=== PATIENT | male | born 1945 | race Caucasian/White ===

== ENCOUNTER 2019-03-04 10:24 | Inpatient (IN) ==
[2019-03-04] MEDS ORDERED: Isovue-370 500 ML BOTTLE IVP ONE (10:57)
[2019-03-04 11:03] LABS: Basophils # 0.1 K/mcL (0.0-0.2); Basophils % 0.8 %; Eosinophils # 0.3 K/mcL (0.0-0.6); Eosinophils % 3.9 %; Hematocrit 46.3 % (37.5-50.1); Hemoglobin 15.3 g/dL (12.9-16.9); Immature Granulocytes % 0.3 % (0-4); Lymphocytes # 1.2 K/mcL (0.6-4.6); Lymphocytes % 18.1 %; Mean Corpuscular Hemoglobin 30.4 pg (28.0-33.3); Mean Platelet Volume 10.2 fL (9.4-12.4); Monocytes # 0.6 K/mcL (0.0-1.3); Monocytes % 9.4 %; Neutrophils # 4.4 K/mcL (1.6-8.9); Platelet Count 210 K/mcL (140-400); Red Blood Count 5.03 M/mcL (4.19-5.50); Red Cell Distribution Width 16.1 % (11.5-14.5); Segmented Neutrophils % 67.5 %; White Blood Count 6.5 K/mcL (4.3-11.1)
[2019-03-04] MEDS ORDERED: *HR* HYDROcodone/Acet 5/325 mg TABLET PO ONE (11:04)
--- NOTE | 2019-03-04 11:05 | Emergency Department Note ---
Disposition Clinical Impression: Cellulitis Qualifiers: Site of cellulitis: extremity Site of cellulitis of extremity: lower extremity Laterality: unspecified laterality Qualified Code(s): L03.119 - Cellulitis of unspecified part of limb Disposition: Admitted As Inpatient Condition: Fair Referrals: Lois Mast MD [Primary Care Provider] - Forms: ED Satisfaction Letter Time of Disposition: 13:42 General Adult HPI - General Chief complaint: ED Extremity Problem,Nontraumatic Stated complaint: BLE pain,swelling Time Seen by Provider: 03/04/19 10:31 Source: patient Limitations: no limitations - History of Present Illness HPI Narrative: Mr. Chavez is a 73-year-old male presenting to the ED complaining of bilateral lower leg pain. He reports his lower leg and foot pain has been ongoing since since November recently was just edematous skin she does have occurred more recently. The skin changes with skin sloughing has occurred in the past month. He reports the pain is worse in his feet bilaterally; it is stabbing pain that radiates from his feet to his lower legs bilaterally. Pain is 10/10. Denies any difficulty with gait reports movement makes pain worse, nothing alleviates the pain. He has an outpatient appointment with wound care on 03/10/19 but reports pain worsened leading him to present to the ED. He has completed 2 regimens of oral antibiotic outpatient is on his third regimen at this time. Currently on his third regimen of oral antibiotics. Additionally has history of CHF as well as diabetes on 2 oral agents, does not monitor his home glucose. He is unsure of the antibiotics he has taken. He denies fever, chills, nausea, emesis, chest pain, shortness of breath. Pain Scale: 10 - Related Data Home Medications Medication Instructions Recorded Confirmed Aspirin [Lo-Dose Aspirin EC] 81 mg PO DAILY 11/21/18 03/04/19 Cholecalciferol (Vitamin D3) 1,000 unit PO DAILY 11/21/18 03/04/19 [Vitamin D3] Cilostazol [Pletal] 100 mg PO BID 11/21/18 03/04/19 Glimepiride [Amaryl] 4 mg PO DAILY 11/21/18 03/04/19 Lovastatin [Mevacor] 2 tab PO DAILY 11/21/18 03/04/19 Furosemide [Lasix] 20 mg PO DAILY 03/04/19 03/04/19 Lisinopril [Zestril] 5 mg PO DAILY 03/04/19 03/04/19 cephALEXin [Keflex] 500 mg PO TID 03/04/19 03/04/19 Previous Rx's Medication Instructions Recorded Dabigatran [Pradaxa] 150 mg PO BID #60 capsule 11/25/18 Metoprolol XL (24 HR) Succ [Toprol 12.5 mg PO DAILY #30 tab.er.24h 11/25/18 Xl] Allergies Allergy/AdvReac Type Severity Reaction Status Date / Time metformin Allergy Rash Verified 11/22/18 15:42 ITCHING Constitutional: Denies: fever, chills, weakness Eyes: Denies: eye pain, vision change ENT ED: Denies: ear pain, congestion, dysphagia Cardiovascular: Denies: chest pain, palpitations, dyspnea on exertion Respiratory: Denies: cough, dyspnea, wheezes Gastrointestinal: Denies: abdominal pain, nausea, vomiting Genitourinary: Denies: urgency, dysuria, frequency Musculoskeletal: Reports: other (Bilateral leg pain) Integumentary: Denies: rash, abrasion, lesions Neurological: Denies: headache, weakness Hematological/Lymphatic: Denies: easy bleeding, easy bruising Past Medical History - Past Medical History Medical history: Reports: atrial fibrillation, CHF, DVT, diabetes, hyperlipidemia, hypertension Surgical history: Reports: non-contributory Psychiatric history: Reports: no psych history - Social History Smoking Status: Former smoker Smokeless Tobacco Status: No Alcohol use: Reports: none Drug use: Reports: none Physical Exam - General Limitations: no limitations General appearance: alert, in no apparent distress - Head Head exam: atraumatic, normocephalic - Eye Eye exam: Present: normal appearance, EOMI, scleral icterus - ENT ENT exam: normal exam, normal oropharynx, mucous membranes moist - Neck Neck exam: Present: normal inspection, full ROM, trachea midline - Chest Chest inspection: Present: normal inspection, symmetric chest wall rise. Absent: tenderness - Respiratory Respiratory exam: Present: normal lung sounds bilaterally, respiratory distress. Absent: wheezes - Cardiovascular Cardiovascular exam: Present: tachycardia, irregular rhythm, other (Circulation heart rate of 109) - Abdominal Exam Abdominal exam: Present: soft, Non-Tender. Absent: distention, guarding, rigidity - Extremities Exam Extremities exam: Present: pedal edema (+2 pitting edema 2 pitting edema bilateral lower extremity), other (skin changes noted bilateral lower extremity, weeping of the skin noted). Absent: calf tenderness - Neurological Exam Neurological exam: Present: alert, oriented X3 (Person place and time) - Psychiatric Psychiatric exam: Present: normal affect, normal mood - Skin Skin exam: Present: warm, other (Weeping of the skin, sloughing of the skin noted as well) Course Vital Signs Temperature 97.6 F 03/04/19 10:25 Pulse Rate 115 03/04/19 10:25 Respiratory Rate 20 03/04/19 10:25 Blood Pressure 154/80 03/04/19 10:25 O2 Sat by Pulse Oximetry 97 03/04/19 10:25 Temperature 97.6 F 03/04/19 10:29 Pulse Rate 93 03/04/19 11:07 Respiratory Rate 03/04/19 10:29 Blood Pressure 123/74 03/04/19 11:07 O2 Sat by Pulse Oximetry 97 03/04/19 10:29 Oxygen Delivery Oxygen Delivery Room Air Medical Decision Making - MDM Narrative Medical decision making narrative: Mr. Chavez is a 73-year-old male patient ED complaining of bilateral lower feet as well as the pain. He reports the pain is been ongoing since November, skin changes occurred about one month. He has completed to oral antiemetic regimen outpatient. Currently on nystatin oral regimen. Reports stabbing pain radiates from his feet up to his bilateral legs. Eyes any fever, chills, nausea, emesis. He also denies any previous history of DVT. Blood cultures, CBC, CMP, CPK, lactic acid, CT of bilateral lower extremity pending. EKG shows atrial fibrillation heart rate is 109. He received IV fluids due to meeting SIRS criteria. Started IV antibiotics. CPK and CBC is within normal limits, lactic acid is also normal limits. CT of the bilateral lower extremities show significant cellulitis concern. Discussed the patient with the hospitalist and will be admitted under hospitalist service. - Medical Records Medical records reviewed: Yes I reviewed the patient's medical records. - Lab Data Lab results reviewed: Yes I reviewed the patient's lab results. Result diagrams: 03/04/19 10:45 03/04/19 10:45 Lab Results 03/04/19 03/04/19 03/04/19 Range/Units 10:45 10:45 10:45 WBC 6.5 (4.3-11.1) K/mcL RBC 5.03 (4.19-5.50) M/mcL Hgb 15.3 (12.9-16.9) g/dL Hct 46.3 (37.5-50.1) % MCV 92.0 (83.0-100.0) fL MCH 30.4 (28.0-33.3) pg MCHC 33.0 (31.6-35.5) g/dL RDW 16.1 H (11.5-14.5) % Plt Count 210 (140-400) K/mcL MPV 10.2 (9.4-12.4) fL Immature Gran % 0.3 (0-4) % Seg Neutrophils % 67.5 % Lymphocytes % 18.1 % Monocytes % 9.4 % Eosinophils % 3.9 % Basophils % 0.8 % Neutrophils # 4.4 (1.6-8.9) K/mcL Lymphocytes # 1.2 (0.6-4.6) K/mcL Monocytes # 0.6 (0.0-1.3) K/mcL Eosinophils # 0.3 (0.0-0.6) K/mcL Basophils # 0.1 (0.0-0.2) K/mcL PT 20.0 H (9.4-12.1) Seconds INR 1.8 APTT 77.4 H (26.0-36.0) Seconds Sodium (136-145) mEq/L Potassium (3.5-5.1) mEq/L Chloride (98-107) mEq/L Carbon Dioxide (23-29) mEq/L BUN (8-23) mg/dL Creatinine (0.70-1.30) mg/dL Est GFR ( Amer) (> 60) Est GFR (Non-Af Amer) (> 60) BUN/Creatinine Ratio (6-26) Glucose (70-105) mg/dL Calculated Osmolality (280-300) Lactic Acid (0.5-2.2) mmol/L Calcium (8.6-10.3) mg/dL Phosphorus (2.7-4.5) mg/dL Magnesium (1.6-2.6) mg/dL Total Bilirubin (0.3-1.0) mg/dL Direct Bilirubin (0.0-0.2) mg/dL Indirect Bilirubin (0.0-1.2) mg/dL AST (13-39) Units/L ALT (7-52) Units/L Alkaline Phosphatase (34-104) Units/L Creatine Kinase (30-223) Units/L Troponin I (< 0.04) ng/mL B-Natriuretic Peptide 36 (Less than 100) pg/mL Serum Total Protein (6.4-8.9) g/dL Albumin (3.5-5.7) g/dL Globulin (2.4-3.5) g/dL Albumin/Globulin Ratio (1.1-2.2) Urine Color (Yellow) Urine Clarity (Clear) Urine pH (5.0-8.0) pH Units Ur Specific [place] (1.010-1.025) Urine Protein (Neg-Trace) mg/dL Urine Glucose (UA) (Normal) mg/dL Urine Ketones (Negative) mg/dL Urine Blood (Negative) Urine Nitrite (Negative) Urine Bilirubin (Negative) Urine Urobilinogen (Normal) mg/dL Ur Leukocyte Esterase (Negative) Ur Culture Indicated? (NO) 03/04/19 03/04/19 03/04/19 Range/Units 10:45 10:45 11:38 WBC (4.3-11.1) K/mcL RBC (4.19-5.50) M/mcL Hgb (12.9-16.9) g/dL Hct (37.5-50.1) % MCV (83.0-100.0) fL MCH (28.0-33.3) pg MCHC (31.6-35.5) g/dL RDW (11.5-14.5) % Plt Count (140-400) K/mcL MPV (9.4-12.4) fL Immature Gran % (0-4) % Seg Neutrophils % % Lymphocytes % % Monocytes % % Eosinophils % % Basophils % % Neutrophils # (1.6-8.9) K/mcL Lymphocytes # (0.6-4.6) K/mcL Monocytes # (0.0-1.3) K/mcL Eosinophils # (0.0-0.6) K/mcL Basophils # (0.0-0.2) K/mcL PT (9.4-12.1) Seconds INR APTT (26.0-36.0) Seconds Sodium 132 L (136-145) mEq/L Potassium 4.1 (3.5-5.1) mEq/L Chloride 103 (98-107) mEq/L Carbon Dioxide 21 L (23-29) mEq/L BUN 24 H (8-23) mg/dL Creatinine 0.98 (0.70-1.30) mg/dL Est GFR ( Amer) > 60 (> 60) Est GFR (Non-Af Amer) > 60 (> 60) BUN/Creatinine Ratio 24 (6-26) Glucose 204 H (70-105) mg/dL Calculated Osmolality 284 (280-300) Lactic Acid 1.4 (0.5-2.2) mmol/L Calcium 9.2 (8.6-10.3) mg/dL Phosphorus 3.0 (2.7-4.5) mg/dL Magnesium 1.8 (1.6-2.6) mg/dL Total Bilirubin 0.5 (0.3-1.0) mg/dL Direct Bilirubin 0.1 (0.0-0.2) mg/dL Indirect Bilirubin 0.4 (0.0-1.2) mg/dL AST 28 (13-39) Units/L ALT 29 (7-52) Units/L Alkaline Phosphatase 60 (34-104) Units/L Creatine Kinase 44 (30-223) Units/L Troponin I < 0.03 (< 0.04) ng/mL B-Natriuretic Peptide (Less than 100) pg/mL Serum Total Protein 7.2 (6.4-8.9) g/dL Albumin 4.0 (3.5-5.7) g/dL Globulin 3.2 (2.4-3.5) g/dL Albumin/Globulin Ratio 1.3 (1.1-2.2) Urine Color Yellow (Yellow) Urine Clarity Clear (Clear) Urine pH 5.5 (5.0-8.0) pH Units Ur Specific [place] 1.007 L (1.010-1.025) Urine Protein Negative (Neg-Trace) mg/dL Urine Glucose (UA) Normal (Normal) mg/dL Urine Ketones Negative (Negative) mg/dL Urine Blood Negative (Negative) Urine Nitrite Negative (Negative) Urine Bilirubin Negative (Negative) Urine Urobilinogen Normal (Normal) mg/dL Ur Leukocyte Esterase Negative (Negative) Ur Culture Indicated? NO (NO) - Radiology Data Radiology results reviewed: Yes I reviewed the patient's radiology results.
[2019-03-04 11:10] LABS: INR 1.8
[2019-03-04 11:13] LABS: Activated Partial Thrombo Time 77.4 Seconds (26.0-36.0)
[2019-03-04 11:25] LABS: Alanine Aminotransferase 29 Units/L (7-52); Albumin/Globulin Ratio 1.3 (1.1-2.2); Alkaline Phosphatase 60 Units/L (34-104); Aspartate Amino Transferase 28 Units/L (13-39); BUN/Creatinine Ratio 24 (6-26); Bilirubin,Direct 0.1 mg/dL (0.0-0.2); Bilirubin,Indirect 0.4 mg/dL (0.0-1.2); Bilirubin,Total 0.5 mg/dL (0.3-1.0); Blood Urea Nitrogen 24 mg/dL (8-23); Calcium 9.2 mg/dL (8.6-10.3); Carbon Dioxide 21 mEq/L (23-29); Chloride 103 mEq/L (98-107); Globulin 3.2 g/dL (2.4-3.5); Glucose 204 mg/dL (70-105); Magnesium 1.8 mg/dL (1.6-2.6); Osmolality,Calculated 284 (280-300); Potassium 4.1 mEq/L (3.5-5.1); Sodium 132 mEq/L (136-145); Total Protein 7.2 g/dL (6.4-8.9); Troponin I < 0.03 ng/mL (< 0.04); eGFR For African Americans > 60 (> 60); eGFR For Non-African Americans > 60 (> 60)
[2019-03-04] MEDS: 0.9 % Sodium Chloride 1,000 ML IVC SCH ×2 (11:41→13:38)
[2019-03-04 11:47] LABS: Bilirubin,Urine Negative (Negative); Blood,Urine Negative (Negative); Clarity,Urine Clear (Clear); Color,Urine Yellow (Yellow); Glucose,Urine (UA) Normal (Normal); Ketones,Urine Negative (Negative); Leukocyte Esterase,Urine Negative (Negative); Nitrite,Urine Negative (Negative); PH,Urine 5.5 pH Units (5.0-8.0); Protein,Urine Negative (Neg-Trace); Specific Gravity,Urine 1.007 (1.010-1.025); Urobilinogen,Urine Normal (Normal)
[2019-03-04 11:56] LABS: Creatine Kinase 44 Units/L (30-223)
[2019-03-04] MEDS ORDERED: Piperacillin/Tazobactam 3.375 GM in 0.9 % Sodium Chloride Mini Bag 100 ML IVPB ONE (13:10)
[2019-03-04] MEDS ORDERED: *HR* FentaNYL (PF) 100 MCG/2 ML VIAL IVP ONE (13:16)
--- NOTE | 2019-03-04 13:18 | Emergency Department Note ---
Disposition Clinical Impression: Cellulitis Qualifiers: Site of cellulitis: extremity Site of cellulitis of extremity: lower extremity Laterality: unspecified laterality Qualified Code(s): L03.119 - Cellulitis of unspecified part of limb Disposition: Admitted As Inpatient Condition: Good Referrals: Lois Mast MD [Primary Care Provider] - Forms: ED Satisfaction Letter Time of Disposition: 13:18 General Adult HPI - General Chief complaint: ED Extremity Problem,Nontraumatic Stated complaint: BLE pain,swelling Time Seen by Provider: 03/04/19 10:31 Source: patient Limitations: no limitations - History of Present Illness Pain Scale: 10 - Related Data Home Medications Medication Instructions Recorded Confirmed Aspirin [Lo-Dose Aspirin EC] 81 mg PO DAILY 11/21/18 03/04/19 Cholecalciferol (Vitamin D3) 1,000 unit PO DAILY 11/21/18 03/04/19 [Vitamin D3] Cilostazol [Pletal] 100 mg PO BID 11/21/18 03/04/19 Glimepiride [Amaryl] 4 mg PO DAILY 11/21/18 03/04/19 Lovastatin [Mevacor] 2 tab PO DAILY 11/21/18 03/04/19 Furosemide [Lasix] 20 mg PO DAILY 03/04/19 03/04/19 Lisinopril [Zestril] 5 mg PO DAILY 03/04/19 03/04/19 cephALEXin [Keflex] 500 mg PO TID 03/04/19 03/04/19 Previous Rx's Medication Instructions Recorded Dabigatran [Pradaxa] 150 mg PO BID #60 capsule 11/25/18 Metoprolol XL (24 HR) Succ [Toprol 12.5 mg PO DAILY #30 tab.er.24h 11/25/18 Xl] Allergies Allergy/AdvReac Type Severity Reaction Status Date / Time metformin Allergy Rash Verified 11/22/18 15:42 ITCHING Past Medical History - Past Medical History Medical history: Reports: atrial fibrillation, CHF, DVT, diabetes, hyperlipidemi a, hypertension Surgical history: Reports: non-contributory Psychiatric history: Reports: no psych history - Social History Smoking Status: Former smoker Smokeless Tobacco Status: No Alcohol use: Reports: none Drug use: Reports: none Physical Exam - General Limitations: no limitations General appearance: alert, in no apparent distress Course Vital Signs Temperature 97.6 F 03/04/19 10:25 Pulse Rate 115 03/04/19 10:25 Respiratory Rate 20 03/04/19 10:25 Blood Pressure 154/80 03/04/19 10:25 O2 Sat by Pulse Oximetry 97 03/04/19 10:25 Temperature 97.6 F 03/04/19 10:29 Pulse Rate 93 03/04/19 11:07 Respiratory Rate 20 03/04/19 10:29 Blood Pressure 123/74 03/04/19 11:07 O2 Sat by Pulse Oximetry 97 03/04/19 10:29 Oxygen Delivery Oxygen Delivery Room Air Medical Decision Making - Lab Data Result diagrams: 03/04/19 10:45 03/04/19 10:45 Lab Results 03/04/19 03/04/19 03/04/19 Range/Units 10:45 10:45 10:45 WBC 6.5 (4.3-11.1) K/mcL RBC 5.03 (4.19-5.50) M/mcL Hgb 15.3 (12.9-16.9) g/dL Hct 46.3 (37.5-50.1) % MCV 92.0 (83.0-100.0) fL MCH 30.4 (28.0-33.3) pg MCHC 33.0 (31.6-35.5) g/dL RDW 16.1 H (11.5-14.5) % Plt Count 210 (140-400) K/mcL MPV 10.2 (9.4-12.4) fL Immature Gran % 0.3 (0-4) % Seg Neutrophils % 67.5 % Lymphocytes % 18.1 % Monocytes % 9.4 % Eosinophils % 3.9 % Basophils % 0.8 % Neutrophils # 4.4 (1.6-8.9) K/mcL Lymphocytes # 1.2 (0.6-4.6) K/mcL Monocytes # 0.6 (0.0-1.3) K/mcL Eosinophils # 0.3 (0.0-0.6) K/mcL Basophils # 0.1 (0.0-0.2) K/mcL PT 20.0 H (9.4-12.1) Seconds INR 1.8 APTT 77.4 H (26.0-36.0) Seconds Sodium (136-145) mEq/L Potassium (3.5-5.1) mEq/L Chloride (98-107) mEq/L Carbon Dioxide (23-29) mEq/L BUN (8-23) mg/dL Creatinine (0.70-1.30) mg/dL Est GFR ( Amer) (> 60) Est GFR (Non-Af Amer) (> 60) BUN/Creatinine Ratio (6-26) Glucose (70-105) mg/dL Calculated Osmolality (280-300) Lactic Acid (0.5-2.2) mmol/L Calcium (8.6-10.3) mg/dL Phosphorus (2.7-4.5) mg/dL Magnesium (1.6-2.6) mg/dL Total Bilirubin (0.3-1.0) mg/dL Direct Bilirubin (0.0-0.2) mg/dL Indirect Bilirubin (0.0-1.2) mg/dL AST (13-39) Units/L ALT (7-52) Units/L Alkaline Phosphatase (34-104) Units/L Creatine Kinase (30-223) Units/L Troponin I (< 0.04) ng/mL B-Natriuretic Peptide 36 (Less than 100) pg/mL Serum Total Protein (6.4-8.9) g/dL Albumin (3.5-5.7) g/dL Globulin (2.4-3.5) g/dL Albumin/Globulin Ratio (1.1-2.2) Urine Color (Yellow) Urine Clarity (Clear) Urine pH (5.0-8.0) pH Units Ur Specific [place] (1.010-1.025) Urine Protein (Neg-Trace) mg/dL Urine Glucose (UA) (Normal) mg/dL Urine Ketones (Negative) mg/dL Urine Blood (Negative) Urine Nitrite (Negative) Urine Bilirubin (Negative) Urine Urobilinogen (Normal) mg/dL Ur Leukocyte Esterase (Negative) Ur Culture Indicated? (NO) 03/04/19 03/04/19 03/04/19 Range/Units 10:45 10:45 11:38 WBC (4.3-11.1) K/mcL RBC (4.19-5.50) M/mcL Hgb (12.9-16.9) g/dL Hct (37.5-50.1) % MCV (83.0-100.0) fL MCH (28.0-33.3) pg MCHC (31.6-35.5) g/dL RDW (11.5-14.5) % Plt Count (140-400) K/mcL MPV (9.4-12.4) fL Immature Gran % (0-4) % Seg Neutrophils % % Lymphocytes % % Monocytes % % Eosinophils % % Basophils % % Neutrophils # (1.6-8.9) K/mcL Lymphocytes # (0.6-4.6) K/mcL Monocytes # (0.0-1.3) K/mcL Eosinophils # (0.0-0.6) K/mcL Basophils # (0.0-0.2) K/mcL PT (9.4-12.1) Seconds INR APTT (26.0-36.0) Seconds Sodium 132 L (136-145) mEq/L Potassium 4.1 (3.5-5.1) mEq/L Chloride 103 (98-107) mEq/L Carbon Dioxide 21 L (23-29) mEq/L BUN 24 H (8-23) mg/dL Creatinine 0.98 (0.70-1.30) mg/dL Est GFR ( Amer) > 60 (> 60) Est GFR (Non-Af Amer) > 60 (> 60) BUN/Creatinine Ratio 24 (6-26) Glucose 204 H (70-105) mg/dL Calculated Osmolality 284 (280-300) Lactic Acid 1.4 (0.5-2.2) mmol/L Calcium 9.2 (8.6-10.3) mg/dL Phosphorus 3.0 (2.7-4.5) mg/dL Magnesium 1.8 (1.6-2.6) mg/dL Total Bilirubin 0.5 (0.3-1.0) mg/dL Direct Bilirubin 0.1 (0.0-0.2) mg/dL Indirect Bilirubin 0.4 (0.0-1.2) mg/dL AST 28 (13-39) Units/L ALT 29 (7-52) Units/L Alkaline Phosphatase 60 (34-104) Units/L Creatine Kinase 44 (30-223) Units/L Troponin I < 0.03 (< 0.04) ng/mL B-Natriuretic Peptide (Less than 100) pg/mL Serum Total Protein 7.2 (6.4-8.9) g/dL Albumin 4.0 (3.5-5.7) g/dL Globulin 3.2 (2.4-3.5) g/dL Albumin/Globulin Ratio 1.3 (1.1-2.2) Urine Color Yellow (Yellow) Urine Clarity Clear (Clear) Urine pH 5.5 (5.0-8.0) pH Units Ur Specific [place] 1.007 L (1.010-1.025) Urine Protein Negative (Neg-Trace) mg/dL Urine Glucose (UA) Normal (Normal) mg/dL Urine Ketones Negative (Negative) mg/dL Urine Blood Negative (Negative) Urine Nitrite Negative (Negative) Urine Bilirubin Negative (Negative) Urine Urobilinogen Normal (Normal) mg/dL Ur Leukocyte Esterase Negative (Negative) Ur Culture Indicated? NO (NO) Attestation Statement - Attestation Attestation: I reviewed the residents documentation and agree with the residents assessment and plan of care. I have personally had face to face time with the patient. (Brief History, Brief Exam, and MDM) I personally supervised and was present for the felton/critical portions of the following procedures completed by the resident: EKG 73 year old male presents to the eD with complaints of BLE swelling and has failed outpatient therapy for cellutlisi. He also has a history of CHF with bilaeral lower extremity swelling. Patinet CT shows bilateral cellultis without osteo or nec fasc. We have started vanc and zosyn and will hydrate and admit to medicine
--- NOTE | 2019-03-04 14:37 | Internal Med History&Physical ---
Date of Encounter: 03/04/19 Time of Encounter: 14:33 Internal Medicine - H&P: HPI Chief complaint: leg infection Admitted From: Home Plans for Post Hospital Care: Home History of present illness: Mr. Chavez is a 73 year old male who has history of atrial fibrillation and DVT CHF diabetes hypertension hyperlipidemia peripheral vascular disease presenting emergency room for bilateral lower extremity redness, pain and constant oozing over one month. Patient was diagnosis of the new onset of CHF back to November 2018, discharge on Lasix, but he continues to have bilateral lower ext swelling, he developed redness and oozing a months ago, he has been treated on multiple rounds of oral antibiotics as outpatient and failure to improve. he complains of pain from bilateral lower extremity pain, 10 out of 10, constant. Denies fever or chills. Denies chest pain shortness of breath. In Emergency room, he has normal white cell counts, normal kidney function. CT lower extremity did not show any abscess no osteomyelitis. Patient is is going to be admitted for bilateral lower extremity cellulitis. Past Med Surg Social Fam HX - Past Medical History Medical history: atrial fibrillation, CHF, DVT, diabetes, hyperlipidemia, hypertension Psychiatric history: no psych history - Past Surgical History Surgical History: non-contributory - Social History Smoking Status: Former smoker Smokeless Tobacco Status: No Alcohol use: none Drug use: none Internal Medicine - H&P: Meds Aspirin [Lo-Dose Aspirin EC] 81 mg PO DAILY 11/21/18 [History] Cholecalciferol (Vitamin D3) [Vitamin D3] 1,000 unit PO DAILY 11/21/18 [History] Cilostazol [Pletal] 100 mg PO BID 11/21/18 [History] Glimepiride [Amaryl] 4 mg PO DAILY 11/21/18 [History] Lovastatin [Mevacor] 2 tab PO DAILY 11/21/18 [History] Dabigatran [Pradaxa] 150 mg PO BID #60 capsule 11/25/18 [Rx] Metoprolol XL (24 HR) Succ [Toprol Xl] 12.5 mg PO DAILY #30 tab.er.24h 11/25/18 [Rx] Furosemide [Lasix] 20 mg PO DAILY 03/04/19 [History] Lisinopril [Zestril] 5 mg PO DAILY 03/04/19 [History] cephALEXin [Keflex] 500 mg PO TID 03/04/19 [History] Allergy/AdvReac Type Severity Reaction Status Date / Time metformin Allergy Rash Verified 11/22/18 15:42 ITCHING All Systems PM: A 10-system review of systems was performed and is negative for pertinent findings except as documented above in the HPI. - Constitutional Vitals: Temp Pulse Resp BP Pulse Ox 97.6 F 79 19 100/68 96 03/04/19 10:29 03/04/19 14:05 03/04/19 13:42 03/04/19 14:05 03/04/19 14:05 General appearance: Present: A&O X 3, pleasant Exam: CONSTITUTIONAL: Patient appears as an age appropriate male well developed, in no acute distress. EYES Clear sclerae, bilateral pupils are equal, reactive to light and accommodation. Extraocular movements are intact RESPIRATORY: No accessory muscle use, bilateral basilar crackles to auscultation, no wheezing. CARDIOVASCULAR: Regular heart rate, normal S1 and S2, no murmurs GASTROINTESTINAL: bowel sounds present, soft, no tenderness. No hepatosplenomegaly. No bilateral CVA tenderness MUSCULOSKELETAL: Joints in normal range of motion, no clubbing, severe edema, no cyanosis. Bilateral peripheral pulses 2+ LYMPHATIC no lymphadenopathy in neck, groin and axilla bilaterally, no thyromegaly. NEUROLOGIC: CN II to XII are grossly intact, no focal neurological deficit. Deep tendon reflexes 2+ bilaterally. Normal light touch sensation to upper and lower extremity PSYCHIATRIC: Oriented x3, with good insight, mood is euthymic. No hallucinations or delusions. SKIN: Skin warm and dry, no rashes, no open wound. Internal Med - H&P Results - Labs CBC & Chem 7: 03/04/19 10:45 03/04/19 10:45 Labs: Short CBC 03/04/19 Range/Units 10:45 WBC 6.5 (4.3-11.1) K/mcL Hgb 15.3 (12.9-16.9) g/dL Hct 46.3 (37.5-50.1) % Plt Count 210 (140-400) K/mcL Neutrophils # 4.4 (1.6-8.9) K/mcL BMP 03/04/19 10:45 Sodium 132 L Potassium 4.1 Chloride 103 Carbon Dioxide 21 L BUN 24 H Creatinine 0.98 Glucose 204 H Calcium 9.2 Cardiac Enzymes 03/04/19 Range/Units 10:45 Troponin I < 0.03 (< 0.04) ng/mL Liver Function 03/04/19 Range/Units 10:45 Total Bilirubin 0.5 (0.3-1.0) mg/dL Direct Bilirubin 0.1 (0.0-0.2) mg/dL AST 28 (13-39) Units/L ALT 29 (7-52) Units/L Alkaline Phosphatase 60 (34-104) Units/L Albumin 4.0 (3.5-5.7) g/dL Urine 03/04/19 Range/Units 11:38 Urine Color Yellow (Yellow) Urine Clarity Clear (Clear) Urine pH 5.5 (5.0-8.0) pH Units Ur Specific [place] 1.007 L (1.010-1.025) Urine Protein Negative (Neg-Trace) mg/dL Urine Glucose (UA) Normal (Normal) mg/dL - Impressions ITS Impressions Lower Extremity CT 03/04/19 10:57 IMPRESSION: Nonspecific soft tissue swelling can represent cellulitis in the appropriate clinical setting. No abscess or foci of soft tissue air. D/ / 03/04/2019 13:08:46 Tien Heard / lasha Interpreting Provider: Tien Heard Lower Extremity CT 03/04/19 10:57 IMPRESSION: 1. Soft tissue edema with skin thickening is nonspecific may reflect cellulitis. No abscess or osteomyelitis. D/ / 03/04/2019 13:10:10 Brad Orantes MD / lasha Interpreting Provider: Brad Orantes MD - Summary of Assessment and Plan Summary of Assessment and Plan: Mr. Chavez is a 73 year old male who has history of atrial fibrillation and DVT CHF diabetes hypertension hyperlipidemia peripheral vascular disease presenting emergency room for bilateral lower extremity redness, pain and constant oozing over one month. . In Emergency room, he has normal white cell counts, normal kidney function. CT lower extremity did not show any abscess no osteomyelitis. Patient is is going to be admitted for bilateral lower extremity cellulitis. #1 bilateral lower extremity cellulitis, will check DVT in the history of present illness to rule out PAD and the DVTs continue vancomycin IV Zosyn consult wound care #2 possible acute on chronic systolic CHF EF 40-45% , with significant fluids overload. We will check x-ray, patient got 1 l saline in ER, check a BNP a.m. #3 diabetes type 2, continue home medication and the sliding scale check A1c #4 PAD, had RONY in 10/2018 conitnue ASA cilostazol, will check RONY, and consult vascular surgery #5. hx of fibrillation rate is well controlled continue Pradaxa #6. Hypertension, BP was low, hold home meds #7. GI and DVT prophalasix, PPI and Pradaxa - Time Spent With Patient Total time spent is greater than 50% in coordination of care (as documented) at patient's floor/unit and/or counseling patient: Greater than 35 minutes
[2019-03-04] MEDS ORDERED: Naloxone 0.4 MG/ML INJ IVP PRN (14:50)
[2019-03-04] MEDS ORDERED: MOM Conc 10 ML UD.LIQ PO PRN (14:50)
[2019-03-04] MEDS ORDERED: Ondansetron 4 MG/2 ML VIAL IVP PRN (14:50)
--- NOTE | 2019-03-04 16:19 | Electrocardiograph Report ---
[address] [address] Test Date: 2019-03-04 Pat Name: Radames Chavez Department: EXAM8 Room: 2A63 Gender: M Etl Manager: : [id number] Requested By: Julianna Avila Order Number: [id number] Reading MD: Stone Michael Measurements Intervals [place] Rate: 109 P: [place]: QRS: 88 QRSD: 97 T: -89 QT: 316 QTc: 426 Interpretive Statements Atrial fibrillation Diffuse T wave changes Electronically Signed On 03-04-2019 16:17:57 EDT by Stone Michael
[2019-03-04] MEDS: *HR* HYDROcodone/Acet 5/325 mg TABLET PO PRN (18:23)
[2019-03-04] MEDS: *HR* OxyCODONE Immed Rel 5 MG TABLET PO PRN (19:38)
[2019-03-04] MEDS: *HR* Dabigatran 150 MG CAPSULE PO SCH (20:46)
[2019-03-04] MEDS: Piperacillin/Tazobactam 3.375 GM in 0.9 % Sodium Chloride Mini Bag 100 ML IVPB SCH (21:19)
[2019-03-05 03:24] LABS: Basophils # 0.1 K/mcL (0.0-0.2); Basophils % 0.6 %; Eosinophils # 0.3 K/mcL (0.0-0.6); Eosinophils % 2.7 %; Hematocrit 44.1 % (37.5-50.1); Hemoglobin 14.6 g/dL (12.9-16.9); Immature Granulocytes % 0.2 % (0-4); Lymphocytes # 1.8 K/mcL (0.6-4.6); Lymphocytes % 19.1 %; Mean Corpuscular HGB Conc 33.1 g/dL (31.6-35.5); Mean Corpuscular Hemoglobin 29.7 pg (28.0-33.3); Mean Corpuscular Volume 89.8 fL (83.0-100.0); Mean Platelet Volume 10.7 fL (9.4-12.4); Monocytes # 1.2 K/mcL (0.0-1.3); Monocytes % 13.1 %; Neutrophils # 6.1 K/mcL (1.6-8.9); Platelet Count 207 K/mcL (140-400); Red Blood Count 4.91 M/mcL (4.19-5.50); Red Cell Distribution Width 16.2 % (11.5-14.5); Segmented Neutrophils % 64.3 %; White Blood Count 9.5 K/mcL (4.3-11.1)
[2019-03-05 03:37] LABS: BUN/Creatinine Ratio 17 (6-26); Blood Urea Nitrogen 19 mg/dL (8-23); Calcium 8.5 mg/dL (8.6-10.3); Carbon Dioxide 25 mEq/L (23-29); Chloride 102 mEq/L (98-107); Glucose 116 mg/dL (70-105); Magnesium 1.8 mg/dL (1.6-2.6); Osmolality,Calculated 283 (280-300); Potassium 4.4 mEq/L (3.5-5.1); Sodium 135 mEq/L (136-145); eGFR For African Americans > 60 (> 60); eGFR For Non-African Americans > 60 (> 60)
[2019-03-05] MEDS: tiZANidine 4 MG TABLET PO PRN ×3 (04:10→22:19)
[2019-03-05] MEDS: Piperacillin/Tazobactam 3.375 GM in 0.9 % Sodium Chloride Mini Bag 100 ML IVPB SCH ×3 (04:58→20:30)
[2019-03-05] MEDS: *HR* Dabigatran 150 MG CAPSULE PO SCH ×2 (07:58→20:29)
[2019-03-05] MEDS: Metoprolol XL (24 HR) Succ 25 MG TAB.ER.24H PO SCH (07:58)
[2019-03-05] MEDS: Cholecalciferol (D-3) 1,000 UNIT TABLET PO SCH (07:58)
[2019-03-05] MEDS: Aspirin Enteric Coated 81 MG Tablet PO SCH (07:58)
[2019-03-05] MEDS: *HR* Glimepiride 4 MG TABLET PO SCH (08:00)
[2019-03-05] MEDS: *HR* HYDROcodone/Acet 5/325 mg TABLET PO PRN (11:53)
[2019-03-05] MEDS ORDERED: Ipratropium/Albuterol Neb 3 ML IH PRN (14:43)
--- NOTE | 2019-03-05 14:45 | Internal Med Progress Note ---
Hospitalist Progress Note - Encounter Date of Encounter: 03/05/19 Time of Encounter: 10:00 - Subjective Interval History: patient is doing well, afebrile, leg swelling is the same, he still c/o pain 8/10 from legs, afebrile, he sees Dr cartwright for PAD, will consult Dr Cordon Patient still has some productive cough, on RA, will add Nebs - Exam Vitals: Temp Pulse Resp BP Pulse Ox 97.4 F L 99 18 108/71 97 03/05/19 11:40 03/05/19 11:40 03/05/19 11:40 03/05/19 11:40 03/05/19 11:40 Exam: CONSTITUTIONAL: Patient appears as an age appropriate male well developed, in no acute distress. EYES Clear sclerae, bilateral pupils are equal, reactive to light and accommo dation. Extraocular movements are intact RESPIRATORY: No accessory muscle use, bilateral basilar crackles to auscultation, no wheezing. CARDIOVASCULAR: Regular heart rate, normal S1 and S2, no murmurs GASTROINTESTINAL: bowel sounds present, soft, no tenderness. No hepatosplenomegaly. No bilateral CVA tenderness MUSCULOSKELETAL: Joints in normal range of motion, no clubbing, severe edema, no cyanosis. Bilateral peripheral pulses 2+ LYMPHATIC no lymphadenopathy in neck, groin and axilla bilaterally, no thyromegaly. NEUROLOGIC: CN II to XII are grossly intact, no focal neurological deficit. Deep tendon reflexes 2+ bilaterally. Normal light touch sensation to upper and lower extremity PSYCHIATRIC: Oriented x3, with good insight, mood is euthymic. No hallucinations or delusions. SKIN: Skin warm and dry, no rashes, b/l leg erythema and oozing open wound. - Summary of Assessment and Plan Summary of Assessment and Plan: Mr. Chavez is a 73 year old male who has history of atrial fibrillation and DVT CHF diabetes hypertension hyperlipidemia peripheral vascular disease presenting emergency room for bilateral lower extremity redness, pain and constant oozing over one month. . In Emergency room, he has normal white cell counts, normal kidney function. CT lower extremity did not show any abscess no osteomyelitis. Patient is is going to be admitted for bilateral lower extremity cellulitis. #1 bilateral lower extremity cellulitis, duplex is negative for DVT, RONY is done right 0.53, vascular surgery is called. continue vancomycin IV Zosyn c onsult wound care #2 possible acute on chronic systolic CHF EF 40-45% , with significant fluids overload. check x-ray showed Stable bilateral diffuse interstitial reticulonodular densities. Considerations include possible pulmonary edema versus bronchitis/bronchiolitis or possible interstitial pneumonitis, BNP is 54, he is covered by [employer]. he is on RA #3 diabetes type 2, continue home medication and the sliding scale check A1c #4 PAD, had RONY in 10/2018 conitnue ASA cilostazol, consult vascular surgery, RONY done on 03/04 #5. hx of fibrillation rate is well controlled continue Pradaxa #6. Hypertension, BP was low, hold home meds #7. GI and DVT prophalasix, PPI and Pradaxa - Time Spent with Patient Total time spent is greater than 50% in coordination of care (as documented) at patient's floor/unit and/or counseling patient: 25 - 35 minutes Plan of Care Discussed with: family Internal Medicine: Result - Labs CBC & Chem 7: 03/05/19 03:01 03/05/19 03:01 Labs: Short CBC 03/05/19 Range/Units 03:01 WBC 9.5 (4.3-11.1) K/mcL Hgb 14.6 (12.9-16.9) g/dL Hct 44.1 (37.5-50.1) % Plt Count 207 (140-400) K/mcL Neutrophils # 6.1 (1.6-8.9) K/mcL BMP 03/05/19 03:01 Sodium 135 L Potassium 4.4 Chloride 102 Carbon Dioxide 25 BUN 19 Creatinine 1.15 Glucose 116 H Calcium 8.5 L - ABG Interpretation ABG results: PT/INR, D-dimer PT 20.0 Seconds (9.4-12.1) H 03/04/19 10:45 - Impressions Impressions Lower Extremity CT 03/04/19 10:57 IMPRESSION: Nonspecific soft tissue swelling can represent cellulitis in the appropriate clinical setting. No abscess or foci of soft tissue air. D/ / 03/04/2019 13:08:46 Tien Heard / lasha Interpreting Provider: Tien Heard Chest X-Ray 03/04/19 14:55 IMPRESSION: 1. Stable borderline enlarged heart size. 2. Stable bilateral diffuse interstitial reticulonodular densities. Considerations include possible pulmonary edema versus bronchitis/bronchiolitis or possible interstitial pneumonitis. D/ / 03/04/2019 15:25:36 Mohamud Morton MD / madeline Interpreting Provider: Mohamud Morton MD Consult Discharge Plan - Plan Referrals: Lois Mast MD [Primary Care Provider] -
--- NOTE | 2019-03-05 16:22 | Vascular/Endovasc Consult Note ---
Date of Encounter: 03/06/19 Time of Encounter: 16:21 Assessment and Plan (1) Lower extremity edema Current Visit: No Status: Acute The patient presents with swelling involving the lower extremities bilaterally from the thighs all the way down to the feet. This is a secondary lymphedema most likely secondary to a decompensated heart. I agree with Aquacel dressing to the legs at the open area to control the drainage. The patient would benefit from legs elevation and 4 inch All bandage from the toes to the knees. I will also recommend to optimize his myocardial function and pursue aggressive diuresis. (2) Atrial fibrillation with RVR Current Visit: No Status: Acute (3) Diabetes mellitus Current Visit: No Status: Chronic Qualifiers: Diabetes mellitus type: type 2 Diabetes mellitus halfway insulin use: without halfway use Diabetes mellitus complication status: without complication Qualified Code(s): E11.9 - Type 2 diabetes mellitus without complications (4) PVD (peripheral vascular disease) Current Visit: No Status: Chronic The patient complains of claudication was RONY of 0.6 on the right and 0.8 on the left. There is no need to intervene on his peripheral vascular pathology at this stage. He will need to be watched very closely. (5) Cellulitis Current Visit: Yes Status: Acute Treated by the medical team. Qualifiers: Site of cellulitis: extremity Site of cellulitis of extremity: lower extremity Laterality: unspecified laterality Qualified Code(s): L03.119 - Cellulitis of unspecified part of limb - History of Present Illness Consult date: 03/05/19 History of present illness: Mr. Chavez is a 73-year-old white male admitted to the hospital for pain invol ving the lower extremities bilaterally. The pain is moderate in intensity. It is located at the calves bilaterally. It is constant. It is improved with leg elevation. It is worse with leg dependency. The pain is associated with significant swelling involving the lower extremities. The patient denies any history of DVT or SVT. He had a past history of congestive heart failure. Past Med Surg Social Fam HX - Past Medical History Medical history: atrial fibrillation, CHF, DVT, diabetes, hyperlipidemia, hypertension Psychiatric history: no psych history - Past Surgical History Surgical History: non-contributory - Social History Smoking Status: Former smoker Smokeless Tobacco Status: No Alcohol use: none Drug use: none Medications and Allergies Aspirin [Lo-Dose Aspirin EC] 81 mg PO DAILY 11/21/18 [History] Cholecalciferol (Vitamin D3) [Vitamin D3] 1,000 unit PO DAILY 11/21/18 [History] Cilostazol [Pletal] 100 mg PO BID 11/21/18 [History] Glimepiride [Amaryl] 4 mg PO DAILY 11/21/18 [History] Lovastatin [Mevacor] 2 tab PO DAILY 11/21/18 [History] Dabigatran [Pradaxa] 150 mg PO BID #60 capsule 11/25/18 [Rx] Metoprolol XL (24 HR) Succ [Toprol Xl] 12.5 mg PO DAILY #30 tab.er.24h 11/25/18 [Rx] Furosemide [Lasix] 20 mg PO DAILY 03/04/19 [History] Lisinopril [Zestril] 5 mg PO DAILY 03/04/19 [History] cephALEXin [Keflex] 500 mg PO TID 03/04/19 [History] Allergy/AdvReac Type Severity Reaction Status Date / Time metformin Allergy Rash Verified 11/22/18 15:42 ITCHING All Systems Review: The remainder of the systems were reviewed and are negative - Constitutional Constitutional: fatigue, weight gain, weight loss - Cardiovascular Cardiovascular: claudication, dyspnea on exertion, leg edema - Vascular Vascular: lower extremity swelling, lower extremity ulcers, lower extremity discoloration - Musculoskeletal Musculoskeletal: abnormal gait, muscle weakness - Integumentary Integumentary: erythema, rash, swelling Exam General: Present: No Apparent Distress HEENT: Present: Trachea midline, Pupils equal Neck: Present: JVD, Tracheal deviation Cardiac: Present: Irregular Rhythm Lungs: Present: Normal Breath Sounds, Decreased breath sounds Abdomen: Present: Soft Vascular: Present: Normal capillary refill, Pulse, absent (Faint right femoral pulse. Absent popliteal and pedal pulses. RONY 0.6 on the right and 0.8 on the left.), Edema Skin: Present: Wound/ulcer(s) (Open blisters admitted bilaterally with associated stasis dermatitis.), Other (Swelling of the lower extremities from the thighs down to the ankle.) Consult Discharge Plan - Plan Referrals: Lois Mast MD [Primary Care Provider] -
[2019-03-05] MEDS: *HR* OxyCODONE Immed Rel 5 MG TABLET PO PRN (20:29)
[2019-03-06 04:20] LABS: Basophils % 0.4 %; Eosinophils # 0.3 K/mcL (0.0-0.6); Eosinophils % 3.5 %; Hematocrit 42.5 % (37.5-50.1); Hemoglobin 13.5 g/dL (12.9-16.9); Immature Granulocytes % 0.4 % (0-4); Lymphocytes # 1.4 K/mcL (0.6-4.6); Mean Corpuscular HGB Conc 31.8 g/dL (31.6-35.5); Mean Corpuscular Hemoglobin 29.9 pg (28.0-33.3); Mean Platelet Volume 10.1 fL (9.4-12.4); Monocytes # 0.8 K/mcL (0.0-1.3); Monocytes % 9.9 %; Neutrophils # 5.8 K/mcL (1.6-8.9); Platelet Count 192 K/mcL (140-400); Red Blood Count 4.52 M/mcL (4.19-5.50); Red Cell Distribution Width 16.1 % (11.5-14.5); Segmented Neutrophils % 68.8 %; White Blood Count 8.5 K/mcL (4.3-11.1)
[2019-03-06 04:39] LABS: BUN/Creatinine Ratio 18 (6-26); Blood Urea Nitrogen 19 mg/dL (8-23); Calcium 8.6 mg/dL (8.6-10.3); Carbon Dioxide 24 mEq/L (23-29); Chloride 104 mEq/L (98-107); Glucose 129 mg/dL (70-105); Magnesium 1.8 mg/dL (1.6-2.6); Osmolality,Calculated 286 (280-300); Potassium 3.7 mEq/L (3.5-5.1); Sodium 136 mEq/L (136-145); eGFR For African Americans > 60 (> 60); eGFR For Non-African Americans > 60 (> 60)
[2019-03-06] MEDS: Piperacillin/Tazobactam 3.375 GM in 0.9 % Sodium Chloride Mini Bag 100 ML IVPB SCH (05:13)
[2019-03-06] MEDS: *HR* Dabigatran 150 MG CAPSULE PO SCH ×2 (07:15→20:07)
[2019-03-06] MEDS: Metoprolol XL (24 HR) Succ 25 MG TAB.ER.24H PO SCH (07:15)
[2019-03-06] MEDS: tiZANidine 4 MG TABLET PO PRN ×2 (07:15→16:15)
[2019-03-06] MEDS: Cholecalciferol (D-3) 1,000 UNIT TABLET PO SCH (07:15)
[2019-03-06] MEDS: Aspirin Enteric Coated 81 MG Tablet PO SCH (07:16)
[2019-03-06] MEDS: *HR* Glimepiride 4 MG TABLET PO SCH (07:18)
[2019-03-06] MEDS ORDERED: Aminoglycoside Consult 1 EACH MC ONE (08:23)
--- NOTE | 2019-03-06 11:30 | Cardiology Consult Note ---
Date of Encounter: 03/06/19 Time of Encounter: 11:27 Assessment and Plan (1) NSVT (nonsustained ventricular tachycardia) Current Visit: Yes Status: Acute 21 beat run NSVT noted on telemetry. Known CMP EF 11/23/18 40-45%. Pharm ST 12/31/18 Perfusion imaging was negative for ischemia or infarct. Will repeat limited TTE to evaluate EF. Will increase BB to Toprol XL 25mg daily. Monitor telemetry. If EF remains reduced in setting of 21 beat run NSVT, will consider LHC during stay. (2) Atrial fibrillation with RVR Current Visit: No Status: Acute Known A-Fib diagnosed earlier this year. 12 hr tele AVG HR 103, A-Fib. Will increase Toprol XL to 25mg daily. Anticoagulated on Pradaxa. (3) Cardiomyopathy Current Visit: Yes Status: Acute TTE 11/23/18 LVEF 40-45%. New diagnosis at that time thought to be tachycardia i nduced with new A-Fib RVR diagnosis. Nuclear stress test 12/2018 negative for ischemia or infarct. NSVT as above. Repeat TTE. If EF remains reduced, will consider LHC. BNP 54. CXR Stable bilateral diffuse interstitial reticulonodular densities. Considerations include possible pulmonary edema versus bronchitis/bronchiolitis or possible interstitial pneumonitis. Home Lasix 20mg daily. Will resume. Qualifiers: Cardiomyopathy type: unspecified Qualified Code(s): I42.9 - Cardiomyopathy, unspecified Discussion w patient/family: The assessment and plan as outlined above was discussed with the patient and/or family members who expressed understanding and agreement. All questions were answered. Thank you for involving us in the care of your patient. Please call with any questions. I will discuss all the above with Dr. Bacon and make changes as necessary. History of Present Illness Consult date: 03/06/19 Requesting physician: Michael Wallace Consult reason: 20 beat run NSVT Chief complaint: BLE swelling History of present illness: Mr. Chavez is a 73 year old male with PMH of atrial fibrillation, CHF, DM, HTN, HLD, PVD presenting emergency room for bilateral lower extremity redness, pain and constant oozing over one month. Reports pain of bilateral lower extremities. Denies chest pain shortness of breath. CT lower extremity did not show any abscess no osteomyelitis. He was admitted for bilateral lower extremity cellulitis. Overnight noted to have a 21 beat run NSVT and cardiology consulted for further recs. Prior CV testing: Pharm ST 12/31/18: Perfusion imaging was negative for ischemia or infarct. Pharmacologic stress ECG is negative for ischemia at level of heart rate achieved. No appreciable change from baseline ECG. Occasional PVCs or aberrant conduction during testing. Gated EF = 50%. TTE 11/23/18 LVEF 40-45%. Indeterminate diastolic function. Normal LV chamber size and wall thickness by 2D measurement. Normal right ventricular size with m ild reduction in systolic function. Bi-atrial enlargement. Mild mitral regurgitation. No pulmonary hypertension based on TR signal obtained. Past Med Surg Social Fam HX - Past Medical History Medical history: atrial fibrillation, CHF, DVT, diabetes, hyperlipidemia, hypertension Psychiatric history: no psych history - Past Surgical History Surgical History: non-contributory - Social History Smoking Status: Former smoker Smokeless Tobacco Status: No Alcohol use: none Drug use: none Medications and Allergies Aspirin [Lo-Dose Aspirin EC] 81 mg PO DAILY 11/21/18 [History] Cholecalciferol (Vitamin D3) [Vitamin D3] 1,000 unit PO DAILY 11/21/18 [History] Cilostazol [Pletal] 100 mg PO BID 11/21/18 [History] Glimepiride [Amaryl] 4 mg PO DAILY 11/21/18 [History] Lovastatin [Mevacor] 2 tab PO DAILY 11/21/18 [History] Dabigatran [Pradaxa] 150 mg PO BID #60 capsule 11/25/18 [Rx] Metoprolol XL (24 HR) Succ [Toprol Xl] 12.5 mg PO DAILY #30 tab.er.24h 11/25/18 [Rx] Furosemide [Lasix] 20 mg PO DAILY 03/04/19 [History] Lisinopril [Zestril] 5 mg PO DAILY 03/04/19 [History] cephALEXin [Keflex] 500 mg PO TID 03/04/19 [History] Allergy/AdvReac Type Severity Reaction Status Date / Time metformin Allergy Rash Verified 11/22/18 15:42 ITCHING All Systems Review: The remainder of the systems were reviewed and are negative - Cardiovascular Cardiovascular: dyspnea on exertion, leg edema Physical Examination Vital Signs, Last 4 Hours Temp Pulse Resp BP Pulse Ox 03/06/19 07:48 97.8 F 106 22 129/77 96 Vital Signs Temp Pulse Resp BP Pulse Ox 03/06/19 07:48 97.8 F 106 22 129/77 96 03/06/19 03:37 97.8 F 95 19 119/68 99 03/06/19 01:11 98.3 F 110 19 125/72 94 03/05/19 21:13 97.5 F L 98 19 117/65 96 03/05/19 17:07 97.7 F 74 16 126/72 95 03/05/19 11:40 97.4 F L 99 18 108/71 97 Intake and Output 03/05/19 03/06/19 03/06/19 23:59 07:59 15:59 Intake Total 100 / 300 100 / 100 Output Total 350 / 350 Balance 100 / 300 100 / -250 -350 / -250 Intake: IV Fluids 100 / 300 100 / 100 Zosyn 3.375 GM In 0.9 % Sodium 100 / 300 100 / 100 Chloride (Mini-Bag +) 100 ML @ 25 mls/hr IVPB Q8H [facility] Rx#: [id number] Output: Urine 350 / 350 Other: Stool Size Moderate Stool Consistency soft # Bowel Movements 1 Blood Glucose* 127 117 General: Conversant, No Apparent Distress HEENT: Atraumatic, Normocephaly, Mucus Membranes Moist Neck: Normal carotid pulses Cardiac: Other (irregularly irregular rhythm) Lungs: Other (diminished) Neuro: Alert and responsive, No focal deficits noted Abdomen: Soft, Non-Tender Skin: No rashes noted on visualized skin Musculoskeletal: No Chest Wall Tenderness Extremities: Other (BLE wrapped) Results 03/06/19 03:52 03/06/19 03:52 Lab Results 03/04/19 03/04/19 03/04/19 10:45 10:45 10:45 WBC RBC 5.03 Hgb Hct MCV 92.0 MCH 30.4 MCHC 33.0 RDW 16.1 H Plt Count MPV 10.2 Immature Gran % 0.3 Seg Neutrophils % 67.5 Lymphocytes % 18.1 Monocytes % 9.4 Eosinophils % 3.9 Basophils % 0.8 Neutrophils # 4.4 Lymphocytes # 1.2 Monocytes # 0.6 Eosinophils # 0.3 Basophils # 0.1 PT 20.0 H Sodium Potassium Chloride Carbon Dioxide BUN Creatinine Est GFR ( Amer) > 60 Est GFR (Non-Af Amer) > 60 BUN/Creatinine Ratio 24 Glucose POC Glucose Calculated Osmolality 284 Lactic Acid Calcium Phosphorus 3.0 Magnesium Direct Bilirubin 0.1 Indirect Bilirubin 0.4 Creatine Kinase 44 Serum Total Protein 7.2 Albumin 4.0 Globulin 3.2 Albumin/Globulin Ratio 1.3 Urine Color Urine Clarity Urine pH Ur Specific [place] Urine Protein Urine Glucose (UA) Urine Ketones Urine Blood Urine Nitrite Urine Bilirubin Urine Urobilinogen Ur Leukocyte Esterase Ur Culture Indicated? 03/04/19 03/04/19 03/04/19 10:45 11:38 17:05 WBC RBC Hgb Hct MCV MCH MCHC RDW Plt Count MPV Immature Gran % Seg Neutrophils % Lymphocytes % Monocytes % Eosinophils % Basophils % Neutrophils # Lymphocytes # Monocytes # Eosinophils # Basophils # PT Sodium Potassium Chloride Carbon Dioxide BUN Creatinine Est GFR ( Amer) Est GFR (Non-Af Amer) BUN/Creatinine Ratio Glucose POC Glucose 88 Calculated Osmolality Lactic Acid 1.4 Calcium Phosphorus Magnesium Direct Bilirubin Indirect Bilirubin Creatine Kinase Serum Total Protein Albumin Globulin Albumin/Globulin Ratio Urine Color Yellow Urine Clarity Clear Urine pH 5.5 Ur Specific [place] 1.007 L Urine Protein Negative Urine Glucose (UA) Normal Urine Ketones Negative Urine Blood Negative Urine Nitrite Negative Urine Bilirubin Negative Urine Urobilinogen Normal Ur Leukocyte Esterase Negative Ur Culture Indicated? NO 03/04/19 03/05/19 03/05/19 18:45 03:01 03:01 WBC RBC 4.91 Hgb Hct MCV 89.8 MCH 29.7 MCHC 33.1 RDW 16.2 H Plt Count MPV 10.7 Immature Gran % 0.2 Seg Neutrophils % 64.3 Lymphocytes % 19.1 Monocytes % 13.1 Eosinophils % 2.7 Basophils % 0.6 Neutrophils # 6.1 Lymphocytes # 1.8 Monocytes # 1.2 Eosinophils # 0.3 Basophils # 0.1 PT Sodium Potassium Chloride Carbon Dioxide BUN Creatinine Est GFR ( Amer) > 60 Est GFR (Non-Af Amer) > 60 BUN/Creatinine Ratio 17 Glucose POC Glucose 135 H Calculated Osmolality 283 Lactic Acid Calcium Phosphorus Magnesium Direct Bilirubin Indirect Bilirubin Creatine Kinase Serum Total Protein Albumin Globulin Albumin/Globulin Ratio Urine Color Urine Clarity Urine pH Ur Specific [place] Urine Protein Urine Glucose (UA) Urine Ketones Urine Blood Urine Nitrite Urine Bilirubin Urine Urobilinogen Ur Leukocyte Esterase Ur Culture Indicated? 03/05/19 03/05/19 03/05/19 07:59 11:43 17:11 WBC RBC Hgb Hct MCV MCH MCHC RDW Plt Count MPV Immature Gran % Seg Neutrophils % Lymphocytes % Monocytes % Eosinophils % Basophils % Neutrophils # Lymphocytes # Monocytes # Eosinophils # Basophils # PT Sodium Potassium Chloride Carbon Dioxide BUN Creatinine Est GFR ( Amer) Est GFR (Non-Af Amer) BUN/Creatinine Ratio Glucose POC Glucose 105 H 173 H 155 H Calculated Osmolality Lactic Acid Calcium Phosphorus Magnesium Direct Bilirubin Indirect Bilirubin Creatine Kinase Serum Total Protein Albumin Globulin Albumin/Globulin Ratio Urine Color Urine Clarity Urine pH Ur Specific [place] Urine Protein Urine Glucose (UA) Urine Ketones Urine Blood Urine Nitrite Urine Bilirubin Urine Urobilinogen Ur Leukocyte Esterase Ur Culture Indicated? 03/05/19 03/06/19 03/06/19 21:12 03:52 03:52 WBC 8.5 RBC 4.52 Hgb 13.5 Hct 42.5 MCV 94.0 MCH 29.9 MCHC 31.8 RDW 16.1 H Plt Count 192 MPV 10.1 Immature Gran % 0.4 Seg Neutrophils % 68.8 Lymphocytes % 17.0 Monocytes % 9.9 Eosinophils % 3.5 Basophils % 0.4 Neutrophils # 5.8 Lymphocytes # 1.4 Monocytes # 0.8 Eosinophils # 0.3 Basophils # 0.0 PT Sodium 136 Potassium 3.7 Chloride 104 Carbon Dioxide 24 BUN 19 Creatinine 1.07 Est GFR ( Amer) > 60 Est GFR (Non-Af Amer) > 60 BUN/Creatinine Ratio 18 Glucose 129 H POC Glucose 127 H Calculated Osmolality 286 Lactic Acid Calcium 8.6 Phosphorus Magnesium 1.8 Direct Bilirubin Indirect Bilirubin Creatine Kinase Serum Total Protein Albumin Globulin Albumin/Globulin Ratio Urine Color Urine Clarity Urine pH Ur Specific [place] Urine Protein Urine Glucose (UA) Urine Ketones Urine Blood Urine Nitrite Urine Bilirubin Urine Urobilinogen Ur Leukocyte Esterase Ur Culture Indicated? 03/06/19 07:50 WBC RBC Hgb Hct MCV MCH MCHC RDW Plt Count MPV Immature Gran % Seg Neutrophils % Lymphocytes % Monocytes % Eosinophils % Basophils % Neutrophils # Lymphocytes # Monocytes # Eosinophils # Basophils # PT Sodium Potassium Chloride Carbon Dioxide BUN Creatinine Est GFR ( Amer) Est GFR (Non-Af Amer) BUN/Creatinine Ratio Glucose POC Glucose 117 H Calculated Osmolality Lactic Acid Calcium Phosphorus Magnesium Direct Bilirubin Indirect Bilirubin Creatine Kinase Serum Total Protein Albumin Globulin Albumin/Globulin Ratio Urine Color Urine Clarity Urine pH Ur Specific [place] Urine Protein Urine Glucose (UA) Urine Ketones Urine Blood Urine Nitrite Urine Bilirubin Urine Urobilinogen Ur Leukocyte Esterase Ur Culture Indicated? Short CBC 03/06/19 Range/Units 03:52 WBC 8.5 (4.3-11.1) K/mcL Hgb 13.5 (12.9-16.9) g/dL Hct 42.5 (37.5-50.1) % Plt Count 192 (140-400) K/mcL Neutrophils # 5.8 (1.6-8.9) K/mcL BMP 03/06/19 Range/Units 03:52 Sodium 136 (136-145) mEq/L Potassium 3.7 (3.5-5.1) mEq/L Chloride 104 (98-107) mEq/L Carbon Dioxide 24 (23-29) mEq/L BUN 19 (8-23) mg/dL Creatinine 1.07 (0.70-1.30) mg/dL Glucose 129 H (70-105) mg/dL Calcium 8.6 (8.6-10.3) mg/dL Active Medications Hydrocodone Bitart/Acetaminophen ([place] 5-325 Mg) 1 tab PO Q6HR PRN PRN Reason: Moderate Pain Stop: 09/03/19 14:51 Last Admin: 03/05/19 11:53 Dose: 1 tab Documented by: Albuterol/Ipratropium (Duoneb) 3 ml IH [id number] PRN PRN Reason: Shortness Of Breath/Wheezing Stop: 09/04/19 14:44 Aspirin (Aspirin Ec) 81 mg PO DAILY [facility] Stop: 09/04/19 09:01 Last Admin: 03/06/19 07:16 Dose: 81 mg Documented by: Atorvastatin Calcium (Lipitor) 10 mg PO DAILY [facility] Stop: 09/04/19 09:01 Last Admin: 03/06/19 07:16 Dose: 10 mg Documented by: Cilostazol (Pletal) 100 mg PO BID [facility] Stop: 09/03/19 21:01 Last Admin: 03/06/19 07:15 Dose: 100 mg Documented by: Dabigatran (Pradaxa) 150 mg PO BID [facility] Stop: 09/03/19 21:01 Last Admin: 03/06/19 07:15 Dose: 150 mg Documented by: Glimepiride (Amaryl) 4 mg PO DAILY@0800 [facility] Stop: 09/04/19 08:01 Last Admin: 03/06/19 07:18 Dose: 4 mg Documented by: Piperacillin Sod/Tazobactam (Sod 3.375 gm/ Sodium Chloride) 100 mls @ 25 mls/hr IVPB Q8H [facility] Stop: 09/03/19 20:01 Last Admin: 03/06/19 05:13 Dose: 25 mls/hr Documented by: Vancomycin HCl 1,500 mg/ (Sodium Chloride) 250 mls @ 166.67 mls/hr IVPB Q24H [facility] Stop: 09/04/19 23:01 Last Admin: 03/06/19 00:29 Dose: 166.7 mls/hr Documented by: Magnesium Hydroxide (Milk Of Magnesia Conc) 10 ml PO DAILY PRN PRN Reason: Constipation Stop: 09/03/19 14:51 Metoprolol Succinate (Toprol Xl) 12.5 mg PO DAILY [facility] Stop: 09/04/19 09:01 Last Admin: 03/06/19 07:15 Dose: 12.5 mg Documented by: Naloxone HCl (Narcan) 0.4 mg IVP Q2MPRN PRN PRN Reason: SEE COMMENTS Stop: 09/03/19 14:51 Omeprazole (Prilosec) 40 mg PO DAILY@0730 [facility]; Protocol Stop: 09/05/19 07:31 Last Admin: 03/06/19 07:15 Dose: 40 mg Documented by: Ondansetron HCl (Zofran) 4 mg IVP Q8HR PRN PRN Reason: Nausea And Vomiting Stop: 09/03/19 14:51 Oxycodone HCl (Roxicodone) 10 mg PO Q6HR PRN PRN Reason: Severe Pain Stop: 09/03/19 14:51 Last Admin: 03/05/19 20:29 Dose: 10 mg Documented by: Tizanidine HCl (Zanaflex) 2 mg PO TID PRN PRN Reason: Muscle Spasm Stop: 09/04/19 02:44 Last Admin: 03/06/19 07:15 Dose: 2 mg Documented by: Vitamin D (Vitamin D) 1,000 unit PO DAILY [facility] Stop: 09/04/19 09:01 Last Admin: 03/06/19 07:15 Dose: 1,000 unit Documented by: - Imaging and Cardiology Echo: report reviewed - EKG Interpretation EKG results cardiology: personally reviewed (A-Fib rate 109), other (12 hr tele AVG HR 103, A-Fib, 21 beat run NSVT) Consult Discharge Plan - Plan Referrals: Lois Mast MD [Primary Care Provider] -
[2019-03-06] MEDS ORDERED: Metoprolol XL (24 HR) Succ 25 MG TAB.ER.24H PO ONE (11:43)
--- NOTE | 2019-03-06 11:47 | Internal Med Progress Note ---
Hospitalist Progress Note - Encounter Date of Encounter: 03/06/19 Time of Encounter: 11:44 - Subjective Interval History: The patient was seen and examined on the side The patient feels better developed 20 beats non-sustained ventricular tachycardia Bankruptcy Paralegal was consulted Electrocardiogram is pending Wound culture growing serratia species sensitive to fluoroquinolone Switch to IV levofloxacin DC IV Zosyn and vancomycin - Exam Vitals: Temp Pulse Resp BP Pulse Ox 97.8 F 106 22 129/77 96 03/06/19 07:48 03/06/19 07:48 03/06/19 07:48 03/06/19 07:48 03/06/19 07:48 Exam: Physical examination: Gen.: Patient is alert and oriented, not in respiratory distress of pain HEENT: perrla , EOMI, no thyroid gland enlargement, no neck mass, supple neck Heart: S1 and S2 sukumar, normal sinus rhythm, no cardiac murmur no gallop rhythm Chest: Air entry equal bilaterally, clear chest, no wheezing, crackles or crepitation Abdomen: Soft nontender nondistended positive bowel sounds, no organomegaly Extremities: Dressing for both legs peripheral pulses palpable, no cyanosis tenderness Neuro: Able to move all 4 limbs, no focal neurological deficit. DVT Prophylaxis: Pradaxa - Summary of Assessment and Plan Summary of Assessment and Plan: Mr. Chavez is a 73 year old male who has history of atrial fibrillation and DVT CHF diabetes hypertension hyperlipidemia peripheral vascular disease presenting emergency room for bilateral lower extremity redness, pain and constant oozing over one month. . In Emergency room, he has normal white cell counts, normal kidney function. CT lower extremity did not show any abscess no osteomyelitis. Patient is is going to be admitted for bilateral lower extremity cellulitis. #1 bilateral lower extremity cellulites 2/2 tpo chronic venous stasis and bi lateral chronic extremity edema duplex is negative for DVT, RONY is done right 0.53, vascular surgery is called. CT leg show no evidence of osteomyelitis Wound culture is growing katlyn species sensitive to levofloxacin switch to iv levofloxacin Continue on All wrap with leg elevation Continue on Lasix 20 mg daily 2- nonsustained ventricular tachycardia: 21 beats run Noted on Telemetry Bankruptcy Paralegal consulted Has history of cardiomyopathy with ejection fraction 40-45% on 11/23 Repeat limited TTE to evaluate ejection fraction Bankruptcy Paralegal did increase beta leigha to metoprolol XL 25 mg daily Nuclear stress test 12/2018 negative for ischemia or infarct. if EF remains reduced in setting of 21 beat run NSVT, cardiology will consider LHC during stay. #2 possible acute on chronic systolic CHF EF 40-45% , with significant fluids overload. check x-ray showed Stable bilateral diffuse interstitial reticulonodular densities. Considerations include possible pulmonary edema versus bronchitis/bronchiolitis or possible interstitial pneumonitis, BNP is 54, he is covered by AT[employer]. he is on by mouth Lasix #3 diabetes type 2, continue home medication and the sliding scale check A1c #4 PAD, had RONY in 10/2018 conitnue ASA cilostazol, consulted vascular surgery, RONY done on 03/04 #5. hx of fibrillation, continue Pradaxa, increase dose of BB #7. GI and DVT prophalasix, PPI and Pradaxa - Time Spent with Patient Total time spent is greater than 50% in coordination of care (as documented) at patient's floor/unit and/or counseling patient: Plan of Care Discussed with: patient Internal Medicine: Result - Labs CBC & Chem 7: 03/06/19 03:52 03/06/19 03:52 Labs: Short CBC 03/06/19 Range/Units 03:52 WBC 8.5 (4.3-11.1) K/mcL Hgb 13.5 (12.9-16.9) g/dL Hct 42.5 (37.5-50.1) % Plt Count 192 (140-400) K/mcL Neutrophils # 5.8 (1.6-8.9) K/mcL BMP 03/06/19 03:52 Sodium 136 Potassium 3.7 Chloride 104 Carbon Dioxide 24 BUN 19 Creatinine 1.07 Glucose 129 H Calcium 8.6 - ABG Interpretation ABG results: PT/INR, D-dimer PT 20.0 Seconds (9.4-12.1) H 03/04/19 10:45 Consult Discharge Plan - Plan Referrals: Lois Mast MD [Primary Care Provider] -
[2019-03-06] MEDS: Furosemide 20 MG TABLET PO SCH (11:53)
[2019-03-06] MEDS: Levofloxacin 750 MG/150 ML 750 MG/150 ML BAG IVPB SCH (11:53)
--- NOTE | 2019-03-06 17:09 | Vascular/[facility] Progress Note ---
Date of Encounter: 03/06/19 Time of Encounter: 17:05 - Assessment and plan (1) Lower extremity edema Current Visit: No Status: Acute The patient presents with swelling involving the lower extremities bilaterally from the thighs all the way down to the feet. This is due to secondary lymphedema. The patient venous duplex scan is negative as expected. He is treated for his cellulitis by the medical team. He is followed by cardiology to optimize his cardiac function. (2) Atrial fibrillation with RVR Current Visit: No Status: Acute (3) Diabetes mellitus Current Visit: No Status: Chronic Qualifiers: Diabetes mellitus type: type 2 Diabetes mellitus penitentiary insulin use: without penitentiary use Diabetes mellitus complication status: without complication Qualified Code(s): E11.9 - Type 2 diabetes mellitus without complications (4) PVD (peripheral vascular disease) Current Visit: No Status: Chronic The patient complains of claudication was RONY of 0.6 on the right and 0.8 on the left. There is no need to intervene on his peripheral vascular pathology at this stage. He will need to be watched very closely. (5) Cellulitis Current Visit: Yes Status: Acute Treated by the medical team. Qualifiers: Site of cellulitis: extremity Site of cellulitis of extremity: lower extremity Laterality: unspecified laterality Qualified Code(s): L03.119 - Cellulitis of unspecified part of limb - Subjective Interval history: Seen in follow-up. Swelling improved was All bandage. Antibiotic adjusted by hospitalist. CT scan of the leg without evidence of osteomyelitis. Venous duplex scan negative for DVT. Stable peripheral vascular disease Vital Signs, Last 4 Hours Temp Pulse Resp BP Pulse Ox 03/06/19 15:24 97.6 F 99 18 113/71 96 - Physical Examination General: Present: No Apparent Distress Neck: Present: JVD Cardiac: Present: Irregular Rhythm Lungs: Present: Normal Breath Sounds Neuro: Present: Alert and responsive, Other (Loss of protective sensation both legs.) Vascular: Present: Pulse, diminished Abdomen: Present: Soft Skin: Present: Other (Cellulitis stable. Blisters are healing.) Musculoskeletal: Present: No Chest Wall Tenderness Results 03/06/19 03:52 03/06/19 03:52 Lab Results, Last 24 hours 03/06/19 03/06/19 03:52 03:52 WBC 8.5 Hgb 13.5 Hct 42.5 Plt Count 192 Sodium 136 Potassium 3.7 Chloride 104 Carbon Dioxide 24 BUN 19 Creatinine 1.07 Glucose 129 H Calcium 8.6 Magnesium 1.8 Consult Discharge Plan - Plan Referrals: Lois Mast MD [Primary Care Provider] -
[2019-03-06] MEDS: *HR* OxyCODONE Immed Rel 5 MG TABLET PO PRN (20:07)
[2019-03-06] MEDS: Doxycycline 100 MG CAPSULE PO SCH (20:07)
[2019-03-07 07:38] LABS: Hematocrit 43.9 % (37.5-50.1); Mean Corpuscular HGB Conc 31.9 g/dL (31.6-35.5); Mean Corpuscular Hemoglobin 29.5 pg (28.0-33.3); Mean Corpuscular Volume 92.6 fL (83.0-100.0); Mean Platelet Volume 10.4 fL (9.4-12.4); Platelet Count 183 K/mcL (140-400); Red Blood Count 4.74 M/mcL (4.19-5.50); White Blood Count 7.7 K/mcL (4.3-11.1)
[2019-03-07] MEDS: tiZANidine 4 MG TABLET PO PRN ×2 (07:38→15:18)
[2019-03-07] MEDS: Metoprolol XL (24 HR) Succ 25 MG TAB.ER.24H PO SCH (07:38)
[2019-03-07] MEDS: Doxycycline 100 MG CAPSULE PO SCH ×2 (07:38→20:19)
[2019-03-07] MEDS: Cholecalciferol (D-3) 1,000 UNIT TABLET PO SCH (07:38)
[2019-03-07] MEDS: Aspirin Enteric Coated 81 MG Tablet PO SCH (07:39)
[2019-03-07] MEDS: *HR* Glimepiride 4 MG TABLET PO SCH (07:39)
[2019-03-07] MEDS: Levofloxacin 750 MG/150 ML 750 MG/150 ML BAG IVPB SCH (07:39)
[2019-03-07] MEDS: Furosemide 20 MG TABLET PO SCH (07:39)
[2019-03-07 07:47] LABS: Alanine Aminotransferase 18 Units/L (7-52); Albumin 3.6 g/dL (3.5-5.7); Albumin/Globulin Ratio 1.2 (1.1-2.2); Alkaline Phosphatase 53 Units/L (34-104); Aspartate Amino Transferase 20 Units/L (13-39); BUN/Creatinine Ratio 17 (6-26); Bilirubin,Total 0.8 mg/dL (0.3-1.0); Blood Urea Nitrogen 16 mg/dL (8-23); Carbon Dioxide 23 mEq/L (23-29); Chloride 105 mEq/L (98-107); Glucose 117 mg/dL (70-105); Magnesium 1.8 mg/dL (1.6-2.6); Osmolality,Calculated 284 (280-300); Potassium 3.8 mEq/L (3.5-5.1); Sodium 136 mEq/L (136-145); Total Protein 6.6 g/dL (6.4-8.9); eGFR For African Americans > 60 (> 60); eGFR For Non-African Americans > 60 (> 60)
[2019-03-07] MEDS: *HR* Dabigatran 150 MG CAPSULE PO SCH ×2 (09:00→20:19)
--- NOTE | 2019-03-07 09:04 | Event Note ---
Date of Encounter: 03/07/19 Time of Encounter: 08:58 - Cardiology Event Note Telemetry reviewed. 12 hr AVG HR 92, A-Fib. 3 and 4 beat run of wide complex tachycardia that appears irregular, suspect A-Fib with Aberrancy. No NSVT noted. Continue BB. Limited TTE ordered, not been completed to re-evaluate EF. Previous 40-45%. If EF remains reduced, will recommend LHC given 21 beat run of NSVT 03/06 AM. NPO after midnight. Will review TTE in AM and determine plan.
--- NOTE | 2019-03-07 10:46 | Internal Med Progress Note ---
Hospitalist Progress Note - Encounter Date of Encounter: 03/07/19 Time of Encounter: 10:41 - Subjective Interval History: The patient was seen and examined at the bedside Patient denies chest pain or shortness of breath Telemetry showed E to run of wide-complex tachycardia that appeared irregular suspect a fib with aberrancy Patient has no fever and culture is growing gram-negative rods and gram-positive cocci , ID and sensitivity still pending - Exam Vitals: Temp Pulse Resp BP Pulse Ox 98.0 F 94 16 125/73 97 03/07/19 07:42 03/07/19 07:42 03/07/19 07:42 03/07/19 07:42 03/07/19 07:42 Exam: Physical examination: Gen.: Patient is alert and oriented, not in respiratory distress of pain HEENT: perrla , EOMI, no thyroid gland enlargement, no neck mass, supple neck Heart: S1 and S2 sukumar, normal sinus rhythm, no cardiac murmur no gallop rhythm Chest: Air entry equal bilaterally, clear chest, no wheezing, crackles or crepitation Abdomen: Soft nontender nondistended positive bowel sounds, no organomegaly Extremities: Dressing for both legs peripheral pulses palpable, no cyanosis tenderness Neuro: Able to move all 4 limbs, no focal neurological deficit. DVT Prophylaxis: Pradaxa - Summary of Assessment and Plan Summary of Assessment and Plan: Mr. Chavez is a 73 year old male who has history of atrial fibrillation and DVT CHF diabetes hypertension hyperlipidemia peripheral vascular disease presenting emergency room for bilateral lower extremity redness, pain and constant oozing over one month. . In Emergency room, he has normal white cell counts, normal kidney function. CT lower extremity did not show any abscess no osteomyelitis. Patient is is going to be admitted for bilateral lower extremity cellulitis. #1 bilateral lower extremity cellulites 2/2 to chronic venous stasis and bilateral chronic extremity edema duplex is negative for DVT, RONY is done right 0.53, vascular surgery is called. CT leg show no evidence of osteomyelitis Wound culture is growing katlyn species sensitive to levofloxacin, and also growing gram-negative rods and gram-positive cocci Continue on iv levofloxacin and Oral doxycycline 100 mg bid Continue on All wrap with leg elevation Continue on Lasix 20 mg daily 2- nonsustained ventricular tachycardia versus A. fib with aberrancy: 21 beats run Noted on Telemetry yesterday 12 hr AVG HR 92, A-Fib. 3 and 4 beat run of wide complex tachycardia that appears irregular Lotteries Agent consulted Has history of cardiomyopathy with ejection fraction 40-45% on 11/23 limited TTE to evaluate ejection fraction Lotteries Agent did increase beta leigha to metoprolol XL 25 mg daily Nuclear stress test 12/2018 negative for ischemia or infarct. if EF remains reduced in setting of 21 beat run NSVT, cardiology will consider LHC during stay. #2 possible acute on chronic systolic CHF EF 40-45% , with significant fluids overload. check x-ray showed Stable bilateral diffuse interstitial reticulonodular densities. Considerations include possible pulmonary edema versus bronchitis/bronchiolitis or possible interstitial pneumonitis, BNP is 54, he is covered by ATB. he is on by mouth Lasix #3 diabetes type 2, continue home medication and the sliding scale check A1c #4 PAD, had RONY in 10/2018 conitnue ASA cilostazol, consulted vascular surgery, RONY done on 03/04 #5. hx of fibrillation, continue Pradaxa, increase dose of BB #7. GI and DVT prophalasix, PPI and Pradaxa - Time Spent with Patient Total time spent is greater than 50% in coordination of care (as documented) at patient's floor/unit and/or counseling patient: Plan of Care Discussed with: patient Internal Medicine: Result - Labs CBC & Chem 7: 03/07/19 07:12 03/07/19 07:12 Labs: Short CBC 03/07/19 Range/Units 07:12 WBC 7.7 (4.3-11.1) K/mcL Hgb 14.0 (12.9-16.9) g/dL Hct 43.9 (37.5-50.1) % Plt Count 183 (140-400) K/mcL BMP 03/07/19 07:12 Sodium 136 Potassium 3.8 Chloride 105 Carbon Dioxide 23 BUN 16 Creatinine 0.94 Glucose 117 H Calcium 9.0 Liver Function 03/07/19 Range/Units 07:12 Total Bilirubin 0.8 (0.3-1.0) mg/dL AST 20 (13-39) Units/L ALT 18 (7-52) Units/L Alkaline Phosphatase 53 (34-104) Units/L Albumin 3.6 (3.5-5.7) g/dL - ABG Interpretation ABG results: PT/INR, D-dimer PT 20.0 Seconds (9.4-12.1) H 03/04/19 10:45 Consult Discharge Plan - Plan Referrals: Lois Mast MD [Primary Care Provider] -
--- NOTE | 2019-03-07 16:18 | Vascular/[facility] Progress Note ---
Date of Encounter: 03/07/19 Time of Encounter: 16:16 - Assessment and plan (1) Lower extremity edema Current Visit: No Status: Acute The patient presents with swelling involving the lower extremities bilaterally from the thighs all the way down to the feet. This is due to secondary lymphedema. . There is no intervention to pursue with any revascularization of his lower extremities at this stage. He will need All bandages to the lower extremities b ilaterally. He will need to wear 20-30 mm open post compression stockings after he is discharged. 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 There is no need to intervene on his peripheral vascular pathology at this stage. He will need to be watched very closely. (5) Cellulitis Current Visit: Yes Status: Acute Treated by the medical team. Qualifiers: Site of cellulitis: extremity Site of cellulitis of extremity: lower extremity Laterality: unspecified laterality Qualified Code(s): L03.119 - Cellulitis of unspecified part of limb - Subjective Interval history: Seen in follow-up. Swelling improved was All bandage. Antibiotic adjusted by hospitalist. CT scan of the leg without evidence of osteomyelitis. Venous duplex scan negative for DVT. Stable peripheral vascular disease - Physical Examination General: Present: No Apparent Distress HEENT: Present: Pupils equal Cardiac: Present: Reg Rate and Rhythm, Normal S1 and S2, No Murmur Lungs: Present: Normal Breath Sounds, No Wheeze, Rales, Rhonchi Vascular: Present: Pulse, absent, Edema Abdomen: Present: Soft, Non-tender Musculoskeletal: Present: No Chest Wall Tenderness Results 03/07/19 07:12 03/07/19 07:12 Lab Results, Last 24 hours 03/07/19 03/07/19 07:12 07:12 WBC 7.7 Hgb 14.0 Hct 43.9 Plt Count 183 Sodium 136 Potassium 3.8 Chloride 105 Carbon Dioxide 23 BUN 16 Creatinine 0.94 Glucose 117 H Calcium 9.0 Magnesium 1.8 Total Bilirubin 0.8 AST 20 ALT 18 Alkaline Phosphatase 53 Consult Discharge Plan - Plan Referrals: Lois Mast MD [Primary Care Provider] -
[2019-03-07] MEDS: *HR* OxyCODONE Immed Rel 5 MG TABLET PO PRN (20:18)
[2019-03-08 01:44] LABS: Hematocrit 42.5 % (37.5-50.1); Hemoglobin 13.5 g/dL (12.9-16.9); Mean Corpuscular HGB Conc 31.8 g/dL (31.6-35.5); Mean Corpuscular Hemoglobin 29.3 pg (28.0-33.3); Mean Corpuscular Volume 92.4 fL (83.0-100.0); Mean Platelet Volume 10.4 fL (9.4-12.4); Platelet Count 192 K/mcL (140-400); White Blood Count 7.7 K/mcL (4.3-11.1)
[2019-03-08 02:02] LABS: Alanine Aminotransferase 25 Units/L (7-52); Albumin 3.4 g/dL (3.5-5.7); Albumin/Globulin Ratio 1.1 (1.1-2.2); Alkaline Phosphatase 54 Units/L (34-104); Aspartate Amino Transferase 25 Units/L (13-39); BUN/Creatinine Ratio 17 (6-26); Bilirubin,Total 0.6 mg/dL (0.3-1.0); Blood Urea Nitrogen 17 mg/dL (8-23); Carbon Dioxide 25 mEq/L (23-29); Chloride 104 mEq/L (98-107); Glucose 105 mg/dL (70-105); Magnesium 1.8 mg/dL (1.6-2.6); Osmolality,Calculated 282 (280-300); Phosphorous 2.9 mg/dL (2.7-4.5); Potassium 3.7 mEq/L (3.5-5.1); Sodium 135 mEq/L (136-145); Total Protein 6.4 g/dL (6.4-8.9); eGFR For African Americans > 60 (> 60); eGFR For Non-African Americans > 60 (> 60)
[2019-03-08] MEDS: Cholecalciferol (D-3) 1,000 UNIT TABLET PO SCH (09:36)
[2019-03-08] MEDS: Metoprolol XL (24 HR) Succ 25 MG TAB.ER.24H PO SCH (09:36)
[2019-03-08] MEDS: Furosemide 20 MG TABLET PO SCH (09:36)
[2019-03-08] MEDS: Aspirin Enteric Coated 81 MG Tablet PO SCH (09:36)
[2019-03-08] MEDS: Doxycycline 100 MG CAPSULE PO SCH (09:36)
[2019-03-08] MEDS: *HR* Glimepiride 4 MG TABLET PO SCH (09:37)
--- NOTE | 2019-03-08 10:21 | Cardiology Progress Note ---
Date of Encounter: 03/08/19 Time of Encounter: 10:18 Assessment and Plan (1) NSVT (nonsustained ventricular tachycardia) Current Visit: Yes Status: Acute 21 beat run NSVT noted on telemetry 03/06. Known CMP EF 11/23/18 40-45%. Pharm ST 12/31/18 Perfusion imaging was negative for ischemia or infarct. Increased BB to Toprol XL 25mg daily. No recurrence. Limited TTE EF remains mildly reduced, 45%. Given EF remains mildly reduced and in setting of 21 beat run NSVT, recommend C. R/B/A discussed. Pt anticoagulated on Pradaxa, last dose 03/07PM. Pradaxa needs held 24 hours prior to [facility]. Plan on [facility] tomorrow, 03/09. (2) Atrial fibrillation with RVR Current Visit: No Status: Acute Known A-Fib diagnosed earlier this year. 12 hr tele AVG HR 90, A-Fib. Rate controlled on increased BB dose. Anticoagulated on Pradaxa. On hold currently for [facility]. (3) Cardiomyopathy Current Visit: Yes Status: Acute TTE 11/23/18 LVEF 40-45%. New diagnosis at that time thought to be tachycardia induced with new A-Fib RVR diagnosis. Nuclear stress test 12/2018 negative for ischemia or infarct. NSVT as above. Repeat TTE EF 45%. Plan for [facility]. BNP 54. CXR Stable bilateral diffuse interstitial reticulonodular densities. Considerations include possible pulmonary edema versus bronchitis/bronchiolitis or possible interstitial pneumonitis. Continue home Lasix PO 20mg daily. Qualifiers: Cardiomyopathy type: unspecified Qualified Code(s): I42.9 - Cardiomyopathy, unspecified Discussion w patient/family: The assessment and plan as outlined above was discussed with the patient and/or family members who expressed understanding and agreement. All questions were answered. Thank you for involving us in the care of your patient. Please call with any questions. I will discuss all the above with Dr. Biswas and make changes as necessary. Subjective Principal diagnosis: NSVT Interval history: No acute complaints this AM. Objective Vital Signs, Last 4 Hours Temp Pulse Resp BP Pulse Ox 03/08/19 08:02 98.3 F 86 18 125/75 96 Vital Signs Temp Pulse Resp BP Pulse Ox 03/08/19 08:02 98.3 F 86 18 125/75 96 03/08/19 03:37 98.1 F 94 20 130/74 96 03/07/19 22:37 98 F 83 20 114/71 96 03/07/19 19:40 98.4 F 94 20 116/73 95 03/07/19 16:56 97.9 F 100 16 125/77 97 03/07/19 11:40 97.6 F 96 18 125/75 99 Intake and Output 03/07/19 03/08/19 03/08/19 23:59 07:59 15:59 Intake Total 150 / 150 Output Total 300 / 300 Balance -150 / -150 Intake: IV Fluids 150 / 150 Levaquin Premix 750mg/150 mL 150 / 150 750 mg In 150 ml @ 100 mls/hr IVPB DAILY [facility] Rx#:[id number] Oral 0 / 0 Output: Urine 300 / 300 Other: Meal NPO Percent of Meal Consumed 0% # Voids 1 Blood Glucose* 137 107 General: Conversant, No Apparent Distress HEENT: Atraumatic, Normocephaly, Mucus Membranes Moist Neck: No JVD, Normal carotid pulses Cardiac: Other (irregularly irregular) Lungs: Normal Breath Sounds, No Wheeze, Rales, Rhonchi Neuro: Alert and responsive, No focal deficits noted Abdomen: Soft, Non-Tender Skin: No rashes noted on visualized skin Musculoskeletal: No Chest Wall Tenderness Extremities: Other (BLE wrapped) Results 03/08/19 00:53 03/08/19 00:53 Lab Results 03/08/19 03/08/19 00:53 00:53 WBC 7.7 Hgb 13.5 Hct 42.5 Plt Count 192 Sodium 135 L Potassium 3.7 Chloride 104 Carbon Dioxide 25 BUN 17 Creatinine 0.99 Glucose 105 Calcium 9.0 Magnesium 1.8 Total Bilirubin 0.6 AST 25 ALT 25 Alkaline Phosphatase 54 Short CBC 03/08/19 Range/Units 00:53 WBC 7.7 (4.3-11.1) K/mcL Hgb 13.5 (12.9-16.9) g/dL Hct 42.5 (37.5-50.1) % Plt Count 192 (140-400) K/mcL BMP 03/08/19 Range/Units 00:53 Sodium 135 L (136-145) mEq/L Potassium 3.7 (3.5-5.1) mEq/L Chloride 104 (98-107) mEq/L Carbon Dioxide 25 (23-29) mEq/L BUN 17 (8-23) mg/dL Creatinine 0.99 (0.70-1.30) mg/dL Glucose 105 (70-105) mg/dL Calcium 9.0 (8.6-10.3) mg/dL Liver Function 03/08/19 Range/Units 00:53 Total Bilirubin 0.6 (0.3-1.0) mg/dL AST 25 (13-39) Units/L ALT 25 (7-52) Units/L Alkaline Phosphatase 54 (34-104) Units/L Albumin 3.4 L (3.5-5.7) g/dL Impressions Echocardiogram Limited Views 03/07/19 11:43 Impressions: Grossly, LVEF appears mildly reduced, 45%. Not all LV segments were well visualized due to poor image quality. Also, LV function appears to vary based on cycle length of AF. Future studies should be completed with contrast enhancement. Findings: Study Quality * Technically sub-optimal due to poor echocardiographic windows. ECG Findings * Atrial fibrillation, bundle branch block. Left Ventricle * Not all LV segments were well visualized due to poor image quality. * Grossly, LVEF appears mildly reduced, 45%. * Also, LV function appears to vary based on cycle length of AF. * Atypical septal motion consistent with bundle branch block. Active Medications Hydrocodone Bitart/Acetaminophen ([place] 5-325 Mg) 1 tab PO Q6HR PRN PRN Reason: Moderate Pain Stop: 09/03/19 14:51 Last Admin: 03/05/19 11:53 Dose: 1 tab Documented by: Albuterol/Ipratropium (Duoneb) 3 ml IH [id number] PRN PRN Reason: Shortness Of Breath/Wheezing Stop: 09/04/19 14:44 Aspirin (Aspirin Ec) 81 mg PO DAILY JLUIS Stop: 09/04/19 09:01 Last Admin: 03/08/19 09:36 Dose: 81 mg Documented by: Atorvastatin Calcium (Lipitor) 10 mg PO DAILY JLUIS Stop: 09/04/19 09:01 Last Admin: 03/08/19 09:37 Dose: 10 mg Documented by: Cilostazol (Pletal) 100 mg PO BID JLUIS Stop: 09/03/19 21:01 Last Admin: 03/08/19 09:36 Dose: 100 mg Documented by: Doxycycline Hyclate (Doxycycline) 100 mg PO BID [facility] Stop: 09/05/19 21:01 Last Admin: 03/08/19 09:36 Dose: 100 mg Documented by: Furosemide (Lasix) 20 mg PO DAILY [facility] Stop: 09/05/19 11:46 Last Admin: 03/08/19 09:36 Dose: 20 mg Documented by: Glimepiride (Amaryl) 4 mg PO DAILY@0800 [facility] Stop: 09/04/19 08:01 Last Admin: 03/08/19 09:37 Dose: 4 mg Documented by: Levofloxacin/Dextrose (Levaquin Premix 750mg/150 Ml) 750 mg in 150 mls @ 100 mls/hr IVPB DAILY [facility]; Protocol Stop: 09/05/19 11:46 Last Infusion: 03/08/19 09:42 Dose: Infused Documented by: Magnesium Hydroxide (Milk Of Magnesia Conc) 10 ml PO DAILY PRN PRN Reason: Constipation Stop: 09/03/19 14:51 Metoprolol Succinate (Toprol Xl) 25 mg PO DAILY [facility] Stop: 09/06/19 09:01 Last Admin: 03/08/19 09:36 Dose: 25 mg Documented by: Naloxone HCl (Narcan) 0.4 mg IVP Q2MPRN PRN PRN Reason: SEE COMMENTS Stop: 09/03/19 14:51 Omeprazole (Prilosec) 40 mg PO DAILY@0730 [facility]; Protocol Stop: 09/05/19 07:31 Last Admin: 03/08/19 09:36 Dose: 40 mg Documented by: Oxycodone HCl (Roxicodone) 10 mg PO Q6HR PRN PRN Reason: Severe Pain Stop: 09/03/19 14:51 Last Admin: 03/07/19 20:18 Dose: 10 mg Documented by: Tizanidine HCl (Zanaflex) 2 mg PO TID PRN PRN Reason: Muscle Spasm Stop: 09/04/19 02:44 Last Admin: 03/07/19 15:18 Dose: 2 mg Documented by: Vitamin D (Vitamin D) 1,000 unit PO DAILY [facility] Stop: 09/04/19 09:01 Last Admin: 03/08/19 09:36 Dose: 1,000 unit Documented by: - Imaging and Cardiology Echo: report reviewed - EKG Interpretation EKG results cardiology: other (12 hr tele AVG HR 90, A-Fib. No ventricular arrhythmias noted.) Consult Discharge Plan - Plan Referrals: Lois Mast MD [Primary Care Provider] -
--- NOTE | 2019-03-08 12:39 | Internal Med Progress Note ---
Hospitalist Progress Note - Encounter Date of Encounter: 03/08/19 Time of Encounter: 12:36 - Subjective Interval History: patient is mdoing better, leg swelling nad oozing are better, pain also improved, he has appointment on 03/10 with poldiatry, denies lchest pain and SOB - Exam Vitals: Temp Pulse Resp BP Pulse Ox 97.6 F 100 18 127/77 95 03/08/19 12:08 03/08/19 12:08 03/08/19 12:08 03/08/19 12:08 03/08/19 12:08 Exam: CONSTITUTIONAL: Patient appears as an age appropriate male well developed, in no acute distress. EYES Clear sclerae, bilateral pupils are equal, reactive to light and accommodation. Extraocular movements are intact RESPIRATORY: No accessory muscle use, bilateral basilar crackles to auscultation, no wheezing. CARDIOVASCULAR: irRegularly iregular heart rate, normal S1 and S2, no murmurs GASTROINTESTINAL: bowel sounds present, soft, no tenderness. No hepatosplenomegaly. No bilateral CVA tenderness MUSCULOSKELETAL: Joints in normal range of motion, no clubbing, ++ edema, no cyanosis. Bilateral peripheral pulses 2+ LYMPHATIC no lymphadenopathy in neck, groin and axilla bilaterally, no thyromegaly. NEUROLOGIC: CN II to XII are grossly intact, no focal neurological deficit. Deep tendon reflexes 2+ bilaterally. Normal light touch sensation to upper and lower extremity PSYCHIATRIC: Oriented x3, with good insight, mood is euthymic. No hallucinations or delusions. SKIN: Skin warm and dry, no rashes, b/l leg erythema improved, edema improved DVT Prophylaxis: Pradaxa - Summary of Assessment and Plan Summary of Assessment and Plan: Mr. Chavez is a 73 year old male who has history of atrial fibrillation and DVT CHF diabetes hypertension hyperlipidemia peripheral vascular disease presenting emergency room for bilateral lower extremity redness, pain and constant oozing over one month. . In Emergency room, he has normal white cell counts, normal kidney function. CT lower extremity did not show any abscess no osteomyelitis. Patient is is going to be admitted for bilateral lower extremity cellulitis. #1 bilateral lower extremity cellulites 2/2 to chronic venous stasis and bilateral chronic extremity edema duplex is negative for DVT, RONY is done rig ht 0.53, vascular surgery was conuslted, no intervention indicated at this point CT leg show no evidence of osteomyelitis Wound culture is growing katlyn, enterobacter species sensitive to levofloxac in, enterococcus sensitive to ampicillin Continue on iv levofloxacin and and augmentin Continue on All wrap with leg elevation Continue on Lasix 20 mg daily 2- nonsustained ventricular tachycardia versus A. fib with aberrancy: 21 beats run Noted on Telemetry yesterday 12 hr AVG HR 92, A-Fib. 3 and 4 beat run of wide complex tachycardia that appears irregular Tin Assorter consulted Has history of cardiomyopathy with ejection fraction 40-45% on 11/23 limited TTE showed EF 45% Tin Assorter did increase beta leigha to metoprolol XL 25 mg daily Nuclear stress test 12/2018 negative for ischemia or infarct. plan: [facility] tomorrow #2 possible acute on chronic systolic CHF EF 40-45% , with significant fluids overload. check x-ray showed Stable bilateral diffuse interstitial reticulo nodular densities. Considerations include possible pulmonary edema versus bronchitis/bronchiolitis or possible interstitial pneumonitis, BNP is 54, he is covered by ATB. he is on by mouth Lasix #3 diabetes type 2, continue home medication and the sliding scale #4 PAD, had RONY in 10/2018 conitnue ASA cilostazol, consulted vascular surgery ( no intervention needed), RONY done on 03/04 #5. hx of fibrillation, continue Pradaxa, increase dose of BB #7. GI and DVT prophalasix, PPI and Pradaxa Disposition: [facility], then discharge on oral ATB - Time Spent with Patient Total time spent is greater than 50% in coordination of care (as documented) at patient's floor/unit and/or counseling patient: 25 - 35 minutes Plan of Care Discussed with: patient Internal Medicine: Result - Labs CBC & Chem 7: 03/08/19 00:53 03/08/19 00:53 Labs: Short CBC 03/08/19 Range/Units 00:53 WBC 7.7 (4.3-11.1) K/mcL Hgb 13.5 (12.9-16.9) g/dL Hct 42.5 (37.5-50.1) % Plt Count 192 (140-400) K/mcL BMP 03/08/19 00:53 Sodium 135 L Potassium 3.7 Chloride 104 Carbon Dioxide 25 BUN 17 Creatinine 0.99 Glucose 105 Calcium 9.0 Liver Function 03/08/19 Range/Units 00:53 Total Bilirubin 0.6 (0.3-1.0) mg/dL AST 25 (13-39) Units/L ALT 25 (7-52) Units/L Alkaline Phosphatase 54 (34-104) Units/L Albumin 3.4 L (3.5-5.7) g/dL - ABG Interpretation ABG results: PT/INR, D-dimer PT 20.0 Seconds (9.4-12.1) H 03/04/19 10:45 - Impressions Impressions Echocardiogram Limited Views 03/07/19 11:43 Impressions: Grossly, LVEF appears mildly reduced, 45%. Not all LV segments were well visualized due to poor image quality. Also, LV function appears to vary based on cycle length of AF. Future studies should be completed with contrast enhancement. Findings: Study Quality * Technically sub-optimal due to poor echocardiographic windows. ECG Findings * Atrial fibrillation, bundle branch block. Left Ventricle * Not all LV segments were well visualized due to poor image quality. * Grossly, LVEF appears mildly reduced, 45%. * Also, LV function appears to vary based on cycle length of AF. * Atypical septal motion consistent with bundle branch block. Consult Discharge Plan - Plan Referrals: Lois Mast MD [Primary Care Provider] -
[2019-03-08] MEDS: Amoxicillin 500 MG CAPSULE PO SCH ×3 (13:45→20:15)
[2019-03-08] MEDS: *HR* OxyCODONE Immed Rel 5 MG TABLET PO PRN (20:14)
[2019-03-09] MEDS: *HR* Glimepiride 4 MG TABLET PO SCH (07:22)
[2019-03-09] MEDS: Aspirin Enteric Coated 81 MG Tablet PO SCH (07:22)
[2019-03-09] MEDS: Metoprolol XL (24 HR) Succ 25 MG TAB.ER.24H PO SCH (07:22)
[2019-03-09] MEDS: Furosemide 20 MG TABLET PO SCH (07:22)
[2019-03-09] MEDS: Amoxicillin 500 MG CAPSULE PO SCH ×3 (07:22→19:54)
[2019-03-09] MEDS: Cholecalciferol (D-3) 1,000 UNIT TABLET PO SCH (07:25)
[2019-03-09] MEDS ORDERED: levoFLOXacin 750 MG TABLET PO SCH (09:00)
[2019-03-09] MEDS ORDERED: Heparin 1,000 UNITS/500 mL 500 ML ONE (10:28)
[2019-03-09] MEDS ORDERED: 0.9 % Sodium Chloride 1,000 ML ONE (10:28)
[2019-03-09] MEDS ORDERED: ISOVUE-370 200 ML INFUS..BTL ONE (10:28)
[2019-03-09] MEDS ORDERED: Nitroglycerin 1,000 MCG/10 ML VIAL IV ONE (10:28)
[2019-03-09] MEDS ORDERED: *HR* Heparin 10,000 UNIT/10 ML VIAL ONE (10:28)
--- NOTE | 2019-03-09 10:33 | Pre-Sedation Evaluation ---
Pre-sedation evaluation - Pre-sedation checklist Date of procedure: 03/09/19 Procedure: [facility] Recent Vitals: Last Vital Signs Temp 97.7 F 03/09/19 07:34 Pulse 95 03/09/19 07:34 Resp 16 03/09/19 07:34 BP 145/83 03/09/19 07:34 Pulse Ox 93 03/09/19 07:34 H&P (including ROS) documented in medical record: Yes Previous reaction to sedatives/anesthetics: No Dietary Status: NPO after Midnight Airway Assessment: Patient can open mouth completely, TMJ function normal, Micrognathia (under-bite, receding chin) absent, Neck with adequate range of mot ion Dentition: No loose teeth or bridges Possible difficult airway: No ASA Classification *see protocol: CLASS II-Mild systemic disease Plan of Care: Pt appropriate candidate for procedure/moderate/conscious sedation, Risks/benefits of procedure/sedation discussed w/ patient/family Cardiac Registry (Cardio Only) - Functional Capacity Functional Capacity: < 4 METS - Clincal Frailty Scale Clinical Frailty Scale: Vulnerable
[2019-03-09] MEDS ORDERED: *HR* Midazolam HCl 2 MG/2 ML VIAL ONE (10:37)
[2019-03-09] MEDS ORDERED: *HR* FentaNYL (PF) 100 MCG/2 ML VIAL ONE (10:37)
--- NOTE | 2019-03-09 11:40 | Invasive Diagnostic Lab Proc ---
Name: Radames Chavez Date of Study: 03/09/2019 Date: 1945 Ht: 67.0in Medical Record#: [id number] Age: 74 Wt: 198.42lb Gender: Male BSA: 2.02 Order #: [id number] BMI: 31.07 Physicians Procedure Physician: Danielle Michael MD, [facility] Referring MD: Referring MD: Staff Name Position Time In Sites, Cathy RT (R) Scrub 10:39 AM Danielle Szymanski RT (R) Scrub 10:39 AM Hugo Holloway RN Absence Management Consultant 10:39 AM AndDillon padgett RN Nurse 10:40 AM Cathy aClle RT (R) Monitor 10:40 AM Indications Indication Unstable Angina Procedures Performed Procedure L HRT ARTERY/VENTRICLE ANGIO Pre-Procedure Checklist Informed consent is complete signed and on chart. H&P is on chart. ID band is on and ID verified with patient. Patient NPO for procedure The procedure was described for the patient and questions were answered. Blood Pressure: 145/83 ECG is on chart. Rhythm: NSR Plan of Care Patient will tolerate the procedure without complications. Adequate level of comfort will be maintained. Hemodynamics will remain stable Patient will recover from procedure without complications. Respiratory function will be maintained. Cardiac rhythm will remain stable. Patient temperature will be maintained. Patient and/or family have verbalized understanding of the procedure. Patient Education Chief Complaint/Reason for Test: Cardiac Cath Developmental Category: Geriatric (65+ years) Developmentally Appropriate for Age: Yes Learning Barriers: None Education Needs: Procedure Education Method: Verbal Information Taught: Cardiac Cath Educational Evaluation: Able to repeat information Intravenous Access Time IV Size Location DC'd Fluid/Drip Rate Units RN 10:47 AM 18g 1 /" Patent On Arrival Rt Arm 0.9NaCl 50 ml/hr Hugo Holloway RN Allergies metformin Vital Signs Time BP (mmHg) HR (bpm) O2 Sat. RR (bpm) LOC 145 / 83 95 93 % 16 5 = Fully awake and oriented or at pre-proc level 10:48 AM / % 5 = Fully awake and oriented or at pre-proc level 10:48 AM / % 4 = Oriented but drowsy 11:03 AM / % 4 = Oriented but drowsy 10:43 AM 138 / 97 96 98 % 27 10:48 AM 137 / 92 116 99 % 22 10:53 AM 130 / 86 110 98 % 30 10:58 AM 113 / 68 89 93 % 14 11:03 AM 107 / 67 104 94 % 16 11:08 AM 113 / 78 112 94 % 30 11:14 AM 117 / 70 125 92 % 21 11:18 AM 112 / 72 101 97 % 24 11:23 AM 108 / 76 110 95 % 16 11:28 AM 109 / 71 107 91 % Procedural Medications Time Medication Dose Units Method Given By 10:48 AM Oxygen 2 L/min nasal cannula Hugo Holloway RN 10:48 AM Versed 2 mg Intravenous Hugo Holloway RN 10:48 AM Fentanyl 50 mcg Intravenous Hugo Holloway RN 10:54 AM Lidocaine 2% 20 ml Subcutaneous Danielle Michael MD, [facility] ASA Classification: CLASS II- Mild systemic disease (i.e. well-controlled diabetes, hypertension, asthma, cigarette smoking) Richy Score Preprocedure Postprocedure Activity 2- Moves 4 extremities sustained head lift Activity 2- Moves 4 extremities sustained head lift Circulation 2- SBP +/= 20 points of pre-anesthetic level Circulation 2- SBP +/= 20 points of pre-anesthetic level Consciousness 2- Awake and alert oriented x 3 Consciousness 2- Awake and alert oriented x 3 O2 Saturation 2- Able to maintain O2 satruation of 92% on room air O2 Saturation 2- Able to maintain O2 satruation of 92% on room air Respiratory 2- Able to deep breathe and cough well Respiratory 2- Able to deep breathe and cough well Total Score 10 Total Score 10 Contrast Agent: Isovue Diagnostic Contrast: 62 ml Total Contrast: 62 ml Fluoro Dose: 31 mGy Procedure Log Time Note Enter By 10:39 AM Pt arrived to receiver/laborer 2 at 10:39 [facility] 10:39 AM Physician arrived 10:39 [facility] 10:39 AM Meet and greet completed [facility] 10:39 AM Sign in performed according to hospital policy. Informed consent was obtained[facility] AM Procedure start 10:39 [facility] 10:39 AM Patient charges- Angio tray pack, Navilyst 3mm J, Pulse Oximetry and ACIST tubing and [facility] 10[facility] AM Cathy Hernandez RT (R) Position: Scrub Time in: 10:[address] [facility] 10:39 AM Danielle Szymanski RT (R) Position: Scrub Time in: 10:39 jcallan 10:40 AM Hugo Holloway RN Position: Absence Management Consultant Time in: 10:39 [facility] 10[facility] AM Dillon Sheehan RN Position: Nurse Time in: 10:40 [facility] 10[facility] AM Cathy Calle RT (R) Position: Monitor Time in: 10:40 jcallihan 10:42 AM CathStat 10:42 AM Vitals capture started with the following parameters, Patient=Adult, Interval=5 min, Initial Nphshbhs=331 mmHg, Deflation Rate=3 mmHg, Cuff placed on Right Arm 10:43 AM HR=96 bpm, XQWT=722/97 mmhg, SpO2=98.0 %, Resp=27 B/min 10:43 AM Recorded ECG: UW=855 Condition=Condition 1 10:48 AM Time: 10:48 Patient comfortable and pain free: Yes twilson 10:48 AM Time: 10:48LOC: 5 = Fully awake and oriented or at pre-proc level twilson 10:48 AM Time: 10:48 Oxygen on at 2 L/min per nasal cannula by Hugo Holloway RN twilson 10:48 AM BN=736 bpm, ORWJ=244/92 mmhg, SpO2=99.0 %, Resp=22 B/min 10:48 AM Time: 10:48 Versed 2 mg Intravenous Given by Hugo Holloway RN twilson 10:48 AM Time: 10:48 Fentanyl 50 mcg Intravenous Given by Hugo Holloway RN twilson 10:49 AM Hair removed from procedure site in procedure lab using clippers. Bilateral groin prepped with Chloraprep by Cathy Calle (R), then patient was draped. Skin intact. twilson 10:49 AM ASA Class CLASS II- Mild systemic disease (i.e. well-controlled diabetes, hypertension, asthma, cigarette smoking) twilson 10:52 AM Pressure channel 1 zero failed. 10:52 AM Pressure channel 1 zeroed. 10:52 AM Time out was performed according to hospital policy. Conscious sedation and anesthesia was achieved (see medication log with in this report above) twilson 10:53 AM VV=073 bpm, MFWS=586/86 mmhg, SpO2=98.0 %, Resp=30 B/min 10:54 AM Time: 10:54 20 ml Lidocaine 2% to right groin Subcutaneous Given by Danielle Michael MD, [facility] twilson 10:56 AM Access obtained by percutaneous puncture. 5Fr 10cm Terumo [place] sheath placed in right Femoral artery. [id number] twilson 10:56 AM 5Fr FL 4 catheter inserted over the wire [facility] twilson 10:57 AM Wire removed twilson 10:58 AM LCA angiography performed in multiple views. twilson 10:58 AM HR=89 bpm, FHPZ=374/68 mmhg, SpO2=93.0 %, Resp=14 B/min 10:58 AM Recorded Pressure: Ao, HR=92, Condition=Condition 1 (Aorta) Ao 87/59/72 10:59 AM Wire reinserted. twilson 10:59 AM Catheter removed twilson 11:00 AM 5Fr FR 4 catheter inserted over the wire [facility] twilson 11:00 AM Wire removed twilson 11:02 AM Pressure channel 1 zeroed. 11:02 AM RCA angiography performed in multiple views. twilson 11:02 AM Wire reinserted. twilson 11:02 AM Catheter removed twilson 11:02 AM Recorded Pressure: LV, CE=599, Condition=Condition 1 (Left Ventricle) LV 108/-10/4 11:02 AM 5Fr Pigtail catheter inserted over the wire [facility] twilson 11:03 AM Catheter crossed the aortic valve and was selectively placed in the left ventricle. Pressures recorded on pullback for left heart catheterization. twilson 11:03 AM Wire removed twilson 11:03 AM Recorded Pressure: LV, Ao, KW=548, Condition=Condition 1 (Left Ventricle) LV 78/25/37, (Aorta) Ao 87/65/77 11:03 AM Time: 10:48LOC: 4 = Oriented but drowsy twilson 11:03 AM Time: 10:48 Patient comfortable and pain free: Yes twilson 11:03 AM Bolus angiogram of left Ventricle complete: 8 ml/sec for a total of 24 mls twilson 11:03 AM Wire reinserted. twilson 11:03 AM Wire and catheter removed, intact. twilson 11:03 AM CP=289 bpm, OJWC=681/67 mmhg, SpO2=94.0 %, Resp=16 B/min 11:05 AM Bolus angiogram of right Femoral complete: 2 ml/sec for a total of 4 mls twilson 11:05 AM Procedure completed at 11:05 03/09/2019 twilson 11:05 AM Isovue 370 - 200ml,1 Bottle(s) used. twilson 11:07 AM Sign out completed: Radiation Dose 207.38 mGy, 30.7 Gy/cm2 Fluoro Time: 1.4 Isovue 370 - 200ml contrast 62 ml given by Danielle Michael MD, [facility]. Complications: None. The patient was discharged out of the laborer pole crew in stable condition. Sedation minutes 18. Cardiac Rehab Consult needed: No. Confirmed administered medications: Yes twilson 11:08 AM Arterial sheath pulled using manual compression and V+ Pad for 15 minutes by Danielle Szymanski RT (R) twilson 11:08 AM Estimated Blood Loss: minimal twilson 11:08 AM Post Blood Pressure 107/67 twilson 11:08 AM FC=903 bpm, OGNE=263/78 mmhg, SpO2=94.0 %, Resp=30 B/min 11:08 AM 11:08 Post Pulses Bilateral DP & PT 1+ twilson 11:11 AM Family placed in consult room. twilson 11:13 AM Coronary Dominance: right twilson 11:14 AM KS=072 bpm, ZFCR=790/70 mmhg, SpO2=92.0 %, Resp=21 B/min 11:15 AM Information taught Cardiac Cath twilson 11:15 AM Education needs Procedure, Plan of Care, and Responsibilities of Patient in Care twilson 11:15 AM Learning barriers :None twilson 11:15 AM Education Methods Verbal twilson 11:15 AM Education evaluation Able to repeat information twilson 11:15 AM Lesion found in Proximal RCA. Pre Stenosis: 100 Pre JELENA Flow: twilson 11:15 AM Right Coronary, Right Posterior Descending Arteries with Right Posterolateral and Acute Marginal branches with 100 % stenosis. If graft is supplying this area, 0 % stenosis twilson 11:15 AM Lesion found in Mid LMCA. Pre Stenosis: 40 Pre JELENA Flow: twilson 11:15 AM Left Main Coronary Artery with 40% stenosis twilson 11:16 AM Lesion found in Proximal LAD. Pre Stenosis: 100 Pre JELENA Flow: twilson 11:16 AM Lesion found in Proximal Circumflex. Pre Stenosis: 50 Pre JELENA Flow: twilson 11:16 AM Lesion found in Ramus. Pre Stenosis: 50 Pre JELENA Flow: twilson 11:16 AM Proximal Left Anterior Descending Coronary Artery with 100% stenosis. If graft is supplying this territory, 0 % stenosis. twilson 11:16 AM Circumflex, Obtuse Marginal, Left Posterior Descending, and Left Posterolateral Coronary Arteries with 50 % stenosis. If graft is supplying this area, 0 % stenosis twilson 11:16 AM Ramus with 50% stenosis. If graft is supplying this area, 0 % stenosis twilson 11:16 AM Cardiothoracic surgeon consulted by physician [facility] 11:18 AM Time: 11:03 Patient comfortable and pain free: Yes twilson 11:18 AM Time: 11:03LOC: 4 = Oriented but drowsy twilson 11:18 AM YC=840 bpm, ZKTH=799/72 mmhg, SpO2=97.0 %, Resp=24 B/min 11:23 AM VP=012 bpm, IRXK=055/76 mmhg, SpO2=95.0 %, Resp=16 B/min 11:26 AM Report given to Karen MAYS Pt taken to 2A Room #63. 11:26 twilson 11:28 AM NF=009 bpm, ZPFA=443/71 mmhg, SpO2=91.0 % 11:29 AM Surgeon responded. twilson 11:29 AM Vitals capture stopped. 11:31 AM Site status No bleeding/hematoma - Rt Groin as reported by Sites, Cathy RT (R) at 11:31 twilson 11:31 AM Opsite applied twilson 11:31 AM Patient out of room: 11:31 [facility] Complications Complication None Hemodynamics Pressures Site Systolic/A Wave Diastolic/V Wave Mean AO 87 59 72 LV 108 -10 4 LV 78 25 37 AO 87 65 77 Post Procedure Information Blood Pressure: 107/67 mmHg Post procedural instructions were given Surgery consult for CABG Closure Device Time Device Success/Fail 03/09/2019 11:12:00 AM Manual Compression Successful Site Checks Time Location Status Staff Sheath In? Note 11:31 AM Rt Groin No bleeding/hematoma Sites, Cathy RT (R) Pulses Time Site Pre-Procedure Post-Procedure Note 03/09/2019 10:47:00 AM Bilateral DP & PT 1+ 11:08:00 AM Bilateral DP & PT 1+ Updated by RT Portillo (R) on 03/09/2019 11:33:40 AM electronically signed on 03/09/2019 11:34:06 AM with status of Final
--- NOTE | 2019-03-09 12:53 | Internal Med Progress Note ---
Hospitalist Progress Note - Encounter Date of Encounter: 03/09/19 Time of Encounter: 12:45 - Subjective Interval History: patient tolerated [facility], he is aware of that he has 3 -vessal disease, may need CABG, family are in the room, all questions are answered. - Exam Vitals: Temp Pulse Resp BP Pulse Ox 97.8 F 94 18 122/79 94 03/09/19 12:37 03/09/19 12:37 03/09/19 12:37 03/09/19 12:37 03/09/19 12:37 Exam: CONSTITUTIONAL: Patient appears as an age appropriate male well developed, in no acute distress. EYES Clear sclerae, bilateral pupils are equal, reactive to light and accommodation. Extraocular movements are intact RESPIRATORY: No accessory muscle use, bilateral basilar crackles to auscultation, no wheezing. CARDIOVASCULAR: irRegularly iregular heart rate, normal S1 and S2, no murmurs GASTROINTESTINAL: bowel sounds present, soft, no tenderness. No hepa tosplenomegaly. No bilateral CVA tenderness MUSCULOSKELETAL: Joints in normal range of motion, no clubbing, ++ edema, no cyanosis. Bilateral peripheral pulses 2+ LYMPHATIC no lymphadenopathy in neck, groin and axilla bilaterally, no thyromegaly. NEUROLOGIC: CN II to XII are grossly intact, no focal neurological deficit. Deep tendon reflexes 2+ bilaterally. Normal light touch sensation to upper and lower extremity PSYCHIATRIC: Oriented x3, with good insight, mood is euthymic. No hallucinations or delusions. SKIN: Skin warm and dry, no rashes, b/l leg erythema improved, edema improved DVT Prophylaxis: Pradaxa - Summary of Assessment and Plan Summary of Assessment and Plan: Mr. Chavez is a 73 year old male who has history of atrial fibrillation and DVT CHF diabetes hypertension hyperlipidemia peripheral vascular disease presenting emergency room for bilateral lower extremity redness, pain and constant oozing over one month. . In Emergency room, he has normal white cell counts, normal kidney function. CT lower extremity did not show any abscess no osteomyelitis. Patient is is going to be admitted for bilateral lower extremity cellulitis. #1 bilateral lower extremity cellulites 2/2 to chronic venous stasis and bilateral chronic extremity edema duplex is negative for DVT, RONY is done right 0.53, vascular surgery was conuslted, no intervention indicated at this point CT leg show no evidence of osteomyelitis Wound culture is growing katlyn, enterobacter species sensitive to levofloxacin, enterococcus sensitive to ampicillin Continue on iv levofloxacin and and augmentin Continue on All wrap with leg elevation Continue on Lasix 20 mg daily #2- nonsustained ventricular tachycardia versus A. fib with aberrancy: 21 beats run Noted on Telemetry yesterday 12 hr AVG HR 92, A-Fib. 3 and 4 beat run of wide complex tachycardia that appears irregular Intranet Developer consulted Has history of cardiomyopathy with ejection fraction 40-45% on 11/23 limited TTE showed EF 45% Intranet Developer did increase beta leigha to metoprolol XL 25 mg daily Nuclear stress test 12/2018 negative for ischemia or infarct. [facility] showed 3 vessel disease, CABg was recommended, pending CTS consult #2 possible acute on chronic systolic CHF EF 40-45% , with significant fluids overload. check x-ray showed Stable bilateral diffuse interstitial reticulonodular densities. Considerations include possible pulmonary edema versus bronchitis/bronchiolitis or possible interstitial pneumonitis, BNP is 54, he is covered by ATB. he is on by mouth Lasix #3 diabetes type 2, continue home medication and the sliding scale #4 PAD, had RONY in 10/2018 conitnue ASA cilostazol, consulted vascular surgery ( no intervention needed), RONY done on 03/04 #5. hx of fibrillation, continue Pradaxa, increase dose of BB #7. GI and DVT prophalasix, PPI and Pradaxa Disposition: [facility] Triple vessel coronary artery disease. CTOs of RCA, LAD. The left ventricle is normal and has normal contractility EF 60% Evaluate for CABG. Optimal medical therapy of patient's disease. Aggressive risk factor modification. - Time Spent with Patient Total time spent is greater than 50% in coordination of care (as documented) at patient's floor/unit and/or counseling patient: Internal Medicine: Result - Labs CBC & Chem 7: 03/08/19 00:53 03/08/19 00:53 - ABG Interpretation ABG results: PT/INR, D-dimer PT 20.0 Seconds (9.4-12.1) H 03/04/19 10:45 Consult Discharge Plan - Plan Referrals: Lois Mast MD [Primary Care Provider] -
[2019-03-09] MEDS: tiZANidine 4 MG TABLET PO PRN (14:57)
--- NOTE | 2019-03-09 15:47 | Cardiothoracic Consult Note ---
Date of Encounter: 03/09/19 Time of Encounter: 15:38 Assessment and Plan (1) CAD (coronary artery disease) Current Visit: Yes Status: Acute The patient is a 74-year-old type II diabetic, hypertensive man with atrial fibrillation, congestive heart failure, hypercholesterolemia, cerebrovascular disease, and peripheral arterial disease. He was admitted to [facility] with bilateral lower extremity edema, erythema, an open draining wounds. Culture revealed a polymicrobial infection in the patient has been treated with intravenous antibiotics. During this hospital stay, the patient was noted to have a 21 be run of nonsustained ventricular tachycardia. He underwent a transthoracic echocardiogram which revealed an LVEF 45%. Subsequent cardiac catheterization revealed severe 3 vessel CAD and it LVEF 60%. In particular, the patient has a 40% mid left main lesion, completely occluded proximal LAD which fills distally via left to left collaterals, a 50% proximal ramus intermediate branch lesion, 50% proximal LCx lesion, and a completely occluded proximal RCA which fills distally via mgfa-hp-slxen collaterals. He has been recommended for CABG. A concur this recommendation; however, the patient's lower extremity infection will need to clear prior to being considered for CABG. I recommend consultation infectious disease, Dr. Wynn, for antibiotic recommendations. The patient was given our office contact information and will call the office when his lower extremity wounds have completely healed. The assessment and plan as outlined above was discussed with the patient and/or family members who expressed understanding and agreement. All questions were answered. Qualifiers: Coronary Disease-Associated Artery/Lesion type: [place] artery [place] vs. transplanted heart: [place] heart Associated angina: without angina Qualified Code(s): I25.10 - Atherosclerotic heart disease of [place] coronary artery with out angina pectoris - History of Present Illness Consult date: 03/09/19 Requesting physician: Danielle Michael Consult reason: CABG evaluation Chief complaint: Nonsustained ventricular tachycardia History of present illness: Mr. Chavez is a 74 year old type II diabetic, hypertensive man with known known atrial fibrillation, congestive heart failure, hypercholesterolemia, cerebrovascular disease, and peripheral arterial disease. The patient has had l ower extremity edema and erythema with wounds for 1-2 months. He has been treated with oral antibiotics on an outpatient basis 3 separate times without resolution. He was admitted to [facility] on 03/04/2019 for inpatient therapy of his persistently draining lower extremity wounds. He has leg pain, particularly near the open wounds; however, denies any chills or fever. A wound culture revealed a polymicrobial infection including Enterobacter cloacae, Enterococcus faecalis, Serratia marcescens, and Streptococcus dysgalactiae. He is currently on intravenous antibiotics with some improvement in his lower extremity edema and swelling. During this hospitalization, he experienced a 21 beat run of nonsustained ventricular tachycardia. Cardiology was consulted. The patient underwent a transthoracic echocardiogram which revealed an LVEF 45%. Subsequent cardiac catheterization performed today revealed severe 3 vessel CAD and it LVEF 60%. In particular, the patient has a 40% mid left main lesion, a completely occluded proximal LAD which fills distally via left to left collaterals, a 50% ramus intermediate branch lesion, a 50% proximal LCx lesion, and a completely occluded proximal RCA which fills distally via left to right collaterals. He has been recommended for CABG. Past Med Surg Social Fam HX - Past Medical History Medical history: atrial fibrillation, CHF, coronary artery disease, CVA (Left hemispheric CVA manifested by dysphagia and left upper and lower extremity weakness (20-30 years ago)), DVT, diabetes, hyperlipidemia, hypertension, peripheral artery disease, venous stasis (Bilateral lower extremities) Psychiatric history: no psych history - Past Surgical History Surgical History: non-contributory - Social History Smoking Status: Former smoker Smokeless Tobacco Status: No Alcohol use: none Drug use: none Medications and Allergies Aspirin [Lo-Dose Aspirin EC] 81 mg PO DAILY 11/21/18 [History] Cholecalciferol (Vitamin D3) [Vitamin D3] 1,000 unit PO DAILY 11/21/18 [History] Cilostazol [Pletal] 100 mg PO BID 11/21/18 [History] Glimepiride [Amaryl] 4 mg PO DAILY 11/21/18 [History] Lovastatin [Mevacor] 2 tab PO DAILY 11/21/18 [History] Dabigatran [Pradaxa] 150 mg PO BID #60 capsule 11/25/18 [Rx] Metoprolol XL (24 HR) Succ [Toprol Xl] 12.5 mg PO DAILY #30 tab.er.24h 11/25/18 [Rx] Furosemide [Lasix] 20 mg PO DAILY 03/04/19 [History] Lisinopril [Zestril] 5 mg PO DAILY 03/04/19 [History] cephALEXin [Keflex] 500 mg PO TID 03/04/19 [History] Allergy/AdvReac Type Severity Reaction Status Date / Time metformin Allergy Rash Verified 11/22/18 15:42 ITCHING All Systems Review: The remainder of the systems were reviewed and are negative Physical Examination Vital Signs, Last 4 Hours Temp Pulse Resp BP Pulse Ox 03/09/19 13:21 97.8 F 88 18 121/81 03/09/19 12:37 97.8 F 94 18 122/79 94 03/09/19 12:20 98.7 F 91 18 106/71 94 03/09/19 12:04 98.4 F 96 18 114/73 03/09/19 11:53 98.4 F 65 18 120/71 92 General: Conversant, No Apparent Distress HEENT: Atraumatic, Normocephaly, Trachea midline Neck: No JVD, Normal carotid pulses Cardiac: Normal S1 and S2, No Murmur, Other (Irregular rate rhythm (atrial fibrillation)) Lungs: Normal Breath Sounds, No Wheeze, Rales, Rhonchi Neuro: Alert and responsive, No focal deficits noted Vascular: Normal capillary refill Abdomen: Soft, Non-tender Musculoskeletal: No Chest Wall Tenderness Extremities: No Clubbing, No Cyanosis, Other (Bilateral lower extremity erythema and one plus pitting edema with opened and draining wounds) Results 03/08/19 00:53 03/08/19 00:53 - Imaging Chest Xray: image reviewed (Cardiomegaly. Bilateral diffuse interstitial densities.) Consult Discharge Plan - Plan Referrals: Lois Mast MD [Primary Care Provider] -
--- NOTE | 2019-03-09 16:36 | Event Note ---
Date of Encounter: 03/09/19 Time of Encounter: 16:33 - Cardiology Event Note CT surgery note reviewed, plan for CABG in outpatient setting for severe CAD after patient's wounds have healed. Will resume pradaxa for a.fib. Continue BB. Discussed with , cardiology will sign off. Will arrange outpatient follow up.
[2019-03-09] MEDS: *HR* OxyCODONE Immed Rel 5 MG TABLET PO PRN (19:53)
[2019-03-09] MEDS: *HR* Dabigatran 150 MG CAPSULE PO SCH (19:54)
--- NOTE | 2019-03-10 07:19 | Event Note ---
Date of Encounter: 03/10/19 Time of Encounter: 07:16 I spoke with the infectious disease cisco consultant, Dr. Wynn, regarding the patient's lower extremity cellulitis and the culture results. He is recommended that the patient be placed on Augmentin 875 mg every 12 hours and Bactrim DS one tablet every 12 hours until 03/18/2019. The patient should see me in the office on 03/19/2019. The family has the office number and should call for an appointment.
[2019-03-10 07:55] VITALS: BP 123/76
[2019-03-10] MEDS ORDERED: Sulfamethoxazole/Trimeth DS 1 EACH TABLET PO SCH (09:00)
--- NOTE | 2019-03-10 09:10 | Discharge Summary ---
Date of Encounter: 03/10/19 Time of Encounter: 09:04 - Discharge Diagnosis (1) A-fib Priority: Secondary Status: Chronic Qualifiers: Atrial fibrillation type: chronic Qualified Code(s): I48.2 - Chronic atrial fibrillation (2) CAD (coronary artery disease) Priority: Primary Status: Acute Qualifiers: Coronary Disease-Associated Artery/Lesion type: [place] artery [place] vs. transplanted heart: [place] heart Associated angina: without angina Qualified Code(s): I25.10 - Atherosclerotic heart disease of [place] coronary artery without angina pectoris (3) Cellulitis Priority: Primary Status: Acute Qualifiers: Site of cellulitis: extremity Site of cellulitis of extremity: lower extremity Laterality: unspecified laterality Qualified Code(s): L03.119 - Cellulitis of unspecified part of limb (4) NSVT (nonsustained ventricular tachycardia) Priority: Secondary Status: Resolved (5) CHF (congestive heart failure) Priority: Secondary Status: Chronic Qualifiers: Heart failure type: systolic Heart failure chronicity: acute Qualified Code(s): I50.21 - Acute systolic (congestive) heart failure (6) Diabetes mellitus Priority: Secondary Status: Chronic Qualifiers: Diabetes mellitus type: type 2 Diabetes mellitus intermediate insulin use: without credit operations processor use Diabetes mellitus complication status: without complication Qualified Code(s): E11.9 - Type 2 diabetes mellitus without complications (7) Hypertension Priority: Secondary Status: Chronic Qualifiers: Hypertension type: essential hypertension Qualified Code(s): I10 - Essential (primary) hypertension (8) PVD (peripheral vascular disease) Priority: Secondary Status: Chronic Hospital course: Mr. Chavez is a 74 year old male history of atrial fibrillation and DVT CHF diabetes hypertension hyperlipidemia peripheral vascular disease presenting emergency room for bilateral lower extremity redness, pain and constant oozing over one month. Patient was admitted to the hospital due to cellulitis of the lower extremities. vascular surgery was consulted following KERWIN study and recommended no intervention. During this admission patient had multiple episodes 21-beat regular wide complex tachycardia. and cardiology was consulted. Patient cardiology recommended C. Subsequent cardiac catheterization revealed severe 3 vessel CAD and it LVEF 60%. CT surgery consulted, recommended optimal treatment of cellulitis of the lower extremities and to follow up as outpatient on 03/19/19 after completion of antibiotics therapy. patient is clinically stable to be discharged home on oral antibiotics. I personally explained to him, his and son at bedside the importance of following up with CT surgery as scheduled. - Time Spent with Patient Total time spent providing and/or coordinating discharge services: Time spent: Greater than 30 minutes (38) - Discharge Medications Prescriptions: New Amoxicillin/Clavulanate [Augmentin] 875 mg PO BIDWM 10 Days #20 tablet Sulfamethoxazole/Trimeth DS [Bactrim Ds] 1 each PO BID 10 Days #20 tablet Continued Lovastatin [Mevacor] 2 tab PO DAILY Glimepiride [Amaryl] 4 mg PO DAILY Cilostazol [Pletal] 100 mg PO BID Cholecalciferol (Vitamin D3) [Vitamin D3] 1,000 unit PO DAILY Aspirin [Lo-Dose Aspirin EC] 81 mg PO DAILY Dabigatran [Pradaxa] 150 mg PO BID #60 capsule Metoprolol XL (24 HR) Succ [Toprol Xl] 12.5 mg PO DAILY #30 tab.er.24h Lisinopril [Zestril] 5 mg PO DAILY Furosemide [Lasix] 20 mg PO DAILY Discontinued cephALEXin [Keflex] 500 mg PO TID Home Medications: Aspirin [Lo-Dose Aspirin EC] 81 mg PO DAILY 11/21/18 [History] Cholecalciferol (Vitamin D3) [Vitamin D3] 1,000 unit PO DAILY 11/21/18 [History] Cilostazol [Pletal] 100 mg PO BID 11/21/18 [History] Glimepiride [Amaryl] 4 mg PO DAILY 11/21/18 [History] Lovastatin [Mevacor] 2 tab PO DAILY 11/21/18 [History] Dabigatran [Pradaxa] 150 mg PO BID #60 capsule 11/25/18 [Rx] Metoprolol XL (24 HR) Succ [Toprol Xl] 12.5 mg PO DAILY #30 tab.er.24h 11/25/18 [Rx] Furosemide [Lasix] 20 mg PO DAILY 03/04/19 [History] Lisinopril [Zestril] 5 mg PO DAILY 03/04/19 [History] Amoxicillin/Clavulanate [Augmentin] 875 mg PO BIDWM 10 Days #20 tablet 03/10/19 [Rx] Sulfamethoxazole/Trimeth DS [Bactrim Ds] 1 each PO BID 10 Days #20 tablet 03/10/19 [Rx] Allergies/Adverse Reactions: Allergy/AdvReac Type Severity Reaction Status Date / Time metformin Allergy Rash Verified 11/22/18 15:42 ITCHING Date of admission: 03/04/19 15:45 Primary care physician: Lois Mast Consults: 03/04/19 19:09 Consult to Wound Care [CONS] Routine Reason for Consult: ble cellulitis Call Completed: No 03/05/19 09:59 Consult to Nurse Navigator [CONS] Routine Comment: chf 03/05/19 10:34 Consult to Vascular Surgery [CONS] Routine Consulting Provider: Vascular Surgery [place] Reason for Consult: severe pad and cellulitis, Dr Cordon's patient Time Notified: 10:35 Call Completed: Yes 03/06/19 11:45 Consult to Cardiology [CONS] Routine Comment: Consulting Provider: Cardiology [place] Reason for Consult: per hospitalist for NSVT. Call Completed: Yes 03/09/19 11:44 Consult to Cardiothoracic Surgery [CONS] Routine Consulting Provider: Cardiothoracic Surgery Maribeth Reason for Consult: CAD, eval for CABG Call Completed: Yes 03/10/19 08:22 Consult to Occupational Therapy [CONS] Routine Comment: Evaluate, develop and implement POC Reason for Consult: generalized weakness Does patient have active BEDREST order?: No Is patient medically & hemodynamically stable?: Yes 03/10/19 08:23 Consult to Physical Therapy [CONS] Routine Comment: Evaluate, develop and implement POC Reason for Consult: generalized weakness Does patient have active BEDREST order?: No Is patient medically & hemodynamically stable?: Yes - Constitutional Vitals: Temp Pulse Resp BP Pulse Ox 98.3 F 86 18 123/76 95 03/10/19 07:50 03/10/19 07:50 03/10/19 07:50 03/10/19 07:50 03/10/19 07:50 General appearance: Present: A&O X 3, pleasant Exam: Vitals: Reviewed General: Alert and oriented x4. In no distress Skin: Normal color, no rash, no lesions. HEENT: EOM, pupils equal, round and reactive. Cardiovascular: Irregularly irregular, normal S1 & S2, no rubs, murmurs or gallops. Lungs: CTA b/l, no wheezes or crackles. Abdomen: Soft, non-tender, no rigidity. Extremities: clean dressing in the lower extr b/l. Neurological: Normal cognition and motor skills. Rest of the physical exam is non contributory - Patient Status Disposition: Home, Self-Care Condition: Good Functional capacity at discharge: independent ambulation Overall status at discharge: patient is back to baseline - Discharge Instructions Follow Up With: Lois Mast MD [Primary Care Provider] - 03/11/19 4:45 pm (Please follow up as schedule...) - Diet and Activity Activity: resume usual activities as tolerated Diet: diabetic diet, low salt diet
[2019-03-10] MEDS: Metoprolol XL (24 HR) Succ 25 MG TAB.ER.24H PO SCH (09:49)
[2019-03-10] MEDS: *HR* Glimepiride 4 MG TABLET PO SCH (09:49)
[2019-03-10] MEDS: Aspirin Enteric Coated 81 MG Tablet PO SCH (09:49)
[2019-03-10] MEDS: Furosemide 20 MG TABLET PO SCH (09:49)
[2019-03-10] MEDS: *HR* Dabigatran 150 MG CAPSULE PO SCH (09:50)
[2019-03-10] MEDS: Cholecalciferol (D-3) 1,000 UNIT TABLET PO SCH (09:50)
== END 2019-03-10 10:12 | disposition home or self-care (01) | DRG 602 ==
LOC: EMEROOARM 10:24 → SUATTDRO 15:45 → 2ANU 15:45
PROVIDERS: ADMIT Internal Medicine; ATTEND Internal Medicine

== ENCOUNTER 2019-04-12 06:05 | Inpatient (IN) ==
[2019-04-12] MEDS ORDERED: CeFAZolin Syr 2,000MG/20 ML 2,000 MG/20 ML SYRINGE IVPB ONE (06:24)
[2019-04-12] MEDS ORDERED: Nitroglycerin 25 MG/250 ML INFUS..BTL IVC ONE (06:40)
[2019-04-12] MEDS ORDERED: *HR* FentaNYL (PF) 1,000 MCG/20 ML VIAL ONE (06:47)
[2019-04-12] MEDS ORDERED: *HR* Propofol 200 MG/20 ML VIAL IVP ONE (06:47)
[2019-04-12] MEDS ORDERED: *HR* Midazolam HCl 5 MG/5 ML VIAL IVP ONE (06:47)
[2019-04-12] MEDS ORDERED: *HR* Rocuronium Bromide 50 MG/5 ML VIAL ONE ×2 (06:48→09:03)
[2019-04-12] MEDS ORDERED: *HR* PHENYLEPHRINE 1,000 MCG/10 ML SYRINGE IVP ONE (06:48)
[2019-04-12] MEDS ORDERED: Dexamethasone 4 MG/ML VIAL ONE (06:48)
[2019-04-12] MEDS ORDERED: Famotidine 20 MG/2 ML VIAL ONE (06:49)
[2019-04-12] MEDS ORDERED: Lidocaine 2% Syringe 100 MG/5 ML ONE (06:49)
[2019-04-12] MEDS ORDERED: *HR* Magnesium Sulfate 1 GM/2 ML VIAL ONE (06:49)
[2019-04-12] MEDS ORDERED: Albuterol 2.5 MG/3 ML NEBULIZER IH ONE (06:54)
[2019-04-12] MEDS ORDERED: Albuterol 2.5 MG/3 ML NEBULIZER ONE (07:02)
--- NOTE | 2019-04-12 07:10 | Anesthesia Evaluation PreOp ---
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: TIA (no deficits) Other Medical History: Diabetes Type II, GERD Anesthesia History: No Prior Anesthetic Complications, Past Anesthesia (huma) Alcohol Use: none Drug use: none Medications and Allergies Aspirin [Lo-Dose Aspirin EC] 81 mg PO DAILY 11/21/18 [History] Cholecalciferol (Vitamin D3) [Vitamin D3] 1,000 unit PO DAILY 11/21/18 [History] Cilostazol [Pletal] 100 mg PO BID 11/21/18 [History] Glimepiride [Amaryl] 4 mg PO DAILY 11/21/18 [History] Lovastatin [Mevacor] 2 tab PO DAILY 11/21/18 [History] Dabigatran [Pradaxa] 150 mg PO BID #60 capsule 11/25/18 [Rx] Metoprolol XL (24 HR) Succ [Toprol Xl] 12.5 mg PO DAILY #30 tab.er.24h 11/25/18 [Rx] Furosemide [Lasix] 20 mg PO DAILY 03/04/19 [History] Lisinopril [Zestril] 5 mg PO DAILY 03/04/19 [History] Allergy/AdvReac Type Severity Reaction Status Date / Time metformin Allergy Rash Verified 04/12/19 07:11 ITCHING - Meds/Allergy Pre-op Review Medications Reviewed: Yes Allergies Reviewed: Yes Beta Blockers on Current Med List: Yes (metoprolol) If Beta Blockers taken, Date/Time (Last Dose taken): 730 Anesthesia Results - Labs Laboratory Tests 04/07/19 04/07/19 04/07/19 15:05 15:05 15:05 WBC 6.6 Hgb 14.9 Hct 47.2 Plt Count 201 PT 18.0 H INR 1.6 APTT 46.8 H Sodium 135 L Potassium 3.4 L Chloride 104 Carbon Dioxide 23 BUN 14 Creatinine 1.17 Est GFR (Non-Af Amer) > 60 - Imaging EKG: report reviewed Additional studies: 02/2019 LEFT HEART CATH Indications: Unstable Angina Cardiomyopathy Impressions: Triple vessel coronary artery disease. CTOs of RCA, LAD. The left ventricle is normal and has normal contractility EF 60% Recommendations: Evaluate for CABG. Optimal medical therapy of patient's disease. Aggressive risk factor modification. LV Ventriculography Ejection Method: LV Gram Ejection Fraction: 60% Wall Motion: MELENDEZ Anterobasal Normal Anterolateral Normal Apical: Normal Inferoapical Normal Inferobasal Normal Coronary Dominance: right Lesion Findings/Interventions * Left Main Coronary Artery There is a 40% stenosis in the Mid LMCA- calcified. * Left Anterior Descending There is a 100% stenosis in the Proximal LAD- PURCHASER. Mid-Distal LAD fills via left to left collaterals. * Circumflex There is a 50% stenosis in the Proximal Circumflex. * Ramus There is a 50% stenosis in the Ramus. * Right Coronary Artery There is a 100% stenosis in the Proximal RCA- PURCHASER. Mid-Distal RCA fills via left to right collaterals and right to right bridging collaterals. 02/2019 limited echocardiogram Impressions: Grossly, LVEF appears mildly reduced, 45%. Not all LV segments were well visualized due to poor image quality. Also, LV function appears to vary based on cycle length of AF. Future studies should be completed with contrast enhancement. Findings: Study Quality * Technically sub-optimal due to poor echocardiographic windows. ECG Findings * Atrial fibrillation, bundle branch block. Left Ventricle * Not all LV segments were well visualized due to poor image quality. * Grossly, LVEF appears mildly reduced, 45%. * Also, LV function appears to vary based on cycle length of AF. * Atypical septal motion consistent with bundle branch block. Anesthesia Exam Vital Signs/O2 Sat/Glucose, Most Recent Temp Pulse Resp BP Pulse Ox 98.6 F 82 18 153/92 94 04/12/19 07:24 04/12/19 07:24 04/12/19 07:24 04/12/19 07:24 04/12/19 07:24 Blood Glucose* 106 Weight: 86 kg NPO (# of Hours): > 8 hr - HEENT Pupil (Motor): Pupils equal Mallampati: II Teeth: Edentulous - INTERIOR DESIGN PROFESSIONAL LOC: Oriented INTERIOR DESIGN PROFESSIONAL Motor: Normal RUE, Normal LUE, Normal RLE, Normal LLE, Normal Face INTERIOR DESIGN PROFESSIONAL Sensory: Normal: RUE, LUE, RLE, LLE, Face - Cardiac Rhythm: Regular Murmur: None - Pulmonary Breath Sounds: bilateral Clear Respiratory Effort: Symmetrical Anesthesia Assess/Plan ASA Score: 4 Level of consciousness: Cooperative, Oriented Anesthetic Plan: General Monitoring Plan: Standard Monitors, A-Line, CVC, PAC, ARIANE Recovery Plan: ICU
[2019-04-12] MEDS ORDERED: Aspirin 325 MG TABLET PO ONE (07:15)
--- NOTE | 2019-04-12 07:15 | History & Physical Report ---
Date of Encounter: 04/12/19 Time of Encounter: 07:15 24 Hour HP Update - Instructions Instructions: If the History and Physical is less than 30 days old and was completed prior to A.M. admission and or procedure and has NOT been updated on calendar day of procedure please complete this update prior to performing procedure. - Update Patient reports changes in Medical Condition: No Changes in examination, assessment, or condition: No Changes in Medication: No Preop tests/diagnostics Reviewed: Yes Pre-Op MRSA Screen: Negative Surgery Remains Indicated: Yes Consent for Planned Operative Procedure(s) Verified: Yes - Pre-Operative Checklist Preoperative Checklist Indicated: No Prophylactic Antibiotic Ordered: Yes Home Medications Include Beta Omari: Yes Beta Omari Taken Today (Day of Surgery): Yes Beta Omari Taken Yesterday (Day Prior to Surgery): Yes Is VTE Prophylaxis Indicated?: NO
[2019-04-12] MEDS: Chlorhexidine Rinse 15 ML MOUTHWASH MM SCH ×3 (07:17→20:02)
[2019-04-12] MEDS ORDERED: Norepinephrine 4 MG in D5% in Water 250 ML IVC PRN (07:45)
[2019-04-12] MEDS ORDERED: Heparin 15,000 UNIT in 0.9 % Sodium Chloride 500 ML IV ONE (07:45)
[2019-04-12] MEDS ORDERED: Dextrose 50 % in Water (Vial) 30 ML, Sodium Bicarbonate 20 MEQ, Lidocaine 1% 5 ML, Insu... TH ONE ×3 (07:45)
[2019-04-12] MEDS ORDERED: Insulin Human Regular 100 UNIT in 0.9 % Sodium Chloride 100 ML IV PRN (07:45)
[2019-04-12] MEDS ORDERED: Dextrose 50 % in Water (Vial) 30 ML, Sodium Bicarbonate 20 MEQ, Potassium Chloride 15 M... TH ONE (07:45)
[2019-04-12 08:06] LABS: ABG Base Excess -2 mEq/L (-2 to 3); ABG Chloride 105 mEq/L (98-107); ABG Glucose 125 mg/dL (60-95); ABG HCO3 26 mEq/L (21-27); ABG Ionized Calcium 1.23 mmol/L (1.15-1.35); ABG Oxygen Saturation 89 % (95-98); ABG PCO2 53 mmHg (35-45); ABG PH 7.29 pH Units (7.32-7.45); ABG PO2 64 mmHg (85-104); ABG TCO2 27 mEq/L (20-26)
[2019-04-12] MEDS ORDERED: Chlorhexidine Rinse 15 ML MOUTHWASH MM SCH (09:00)
[2019-04-12] MEDS ORDERED: *HR* Metoprolol 5 MG/5 ML VIAL IVP ONE (09:40)
[2019-04-12 10:08] LABS: ABG Base Excess -3 mEq/L (-2 to 3); ABG Chloride 105 mEq/L (98-107); ABG Glucose 148 mg/dL (60-95); ABG HCO3 23 mEq/L (21-27); ABG Ionized Calcium 1.14 mmol/L (1.15-1.35); ABG Oxygen Saturation 100 % (95-98); ABG PCO2 41 mmHg (35-45); ABG PH 7.35 pH Units (7.32-7.45); ABG PO2 242 mmHg (85-104); ABG TCO2 24 mEq/L (20-26)
[2019-04-12] MEDS ORDERED: Calcium Gluconate 1,000 MG/10 ML VIAL ONE (11:01)
[2019-04-12] MEDS ORDERED: Protamine Sulfate 250 MG/25 ML VIAL IVP ONE (11:01)
--- NOTE | 2019-04-12 11:01 | Anesthesia Procedures ---
Date of Encounter: 04/12/19 Time of Encounter: 10:59 Procedures: Anesthesia - Arterial Line Consent obtained: written consent Time out performed: Yes Sedation: Versed (mg): 2 Sedation: Fentanyl (mcg): 100 Local Anesthetic: Lidocaine 1% Size (Gauge): 20 Length (inches): 1 3/4 Technique Used: sterile prep, guide wire technique, direct puncture technique Post-Procedure: line taped into place, dry sterile dressing placed Complications: none Site: Radial L Vitals: see anesthesia record - Central Line Placement Right IJ Consent obtained: written consent Time out performed: Yes Patient placed on monitor/pulse ox: Yes prep: mask, gown, gloves Central line prep: Chlorhexidine scrub Local Anesthetic Used: Other (general anesthesia ) Ultrasound used for placement: Yes Technique: Seldinger Lumen Inserted: single Size / Length: 9 Fr / 10 cm Post procedure: sutured in place, good blood return Patient tolerated procedure: well, no complications Complications: none Comments: PAC inserted using pressure waveform analysis. Secured at 45 cm
[2019-04-12] MEDS ORDERED: *HR* Amiodarone 150 MG/3 ML VIAL IVPB ONE (11:15)
[2019-04-12] MEDS ORDERED: Amiodarone Premix 360 MG/200 ML BAG IVC ONE (11:15)
[2019-04-12 11:37] LABS: ABG Base Excess -2 mEq/L (-2 to 3); ABG Chloride 105 mEq/L (98-107); ABG Glucose 147 mg/dL (60-95); ABG HCO3 24 mEq/L (21-27); ABG Ionized Calcium 1.25 mmol/L (1.15-1.35); ABG Oxygen Saturation 100 % (95-98); ABG PCO2 41 mmHg (35-45); ABG PH 7.37 pH Units (7.32-7.45); ABG PO2 426 mmHg (85-104); ABG TCO2 25 mEq/L (20-26)
[2019-04-12 11:48] LABS: ABG Base Excess -3 mEq/L (-2 to 3); ABG Chloride 104 mEq/L (98-107); ABG Glucose 156 mg/dL (60-95); ABG HCO3 22 mEq/L (21-27); ABG Ionized Calcium 1.31 mmol/L (1.15-1.35); ABG Oxygen Saturation 99 % (95-98); ABG PCO2 38 mmHg (35-45); ABG PH 7.37 pH Units (7.32-7.45); ABG PO2 133 mmHg (85-104); ABG TCO2 23 mEq/L (20-26)
[2019-04-12] MEDS ORDERED: Albumin Human 5% 25.0 GM/500 ML VIAL ONE (12:04)
[2019-04-12] MEDS ORDERED: Calcium Gluconate 1gm/50mL 1 GM/50 ML BAG IVPB PRN (12:33)
[2019-04-12] MEDS ORDERED: Acetaminophen 325 MG TABLET PO PRN (12:33)
[2019-04-12] MEDS ORDERED: Potassium Chloride 40 MEQ/200 ML BAG IVPB PRN (12:33)
[2019-04-12] MEDS ORDERED: Acetaminophen 650 MG RECTAL SUPP RC PRN (12:33)
[2019-04-12] MEDS ORDERED: Ondansetron 4 MG/2 ML VIAL IVP PRN (12:33)
[2019-04-12] MEDS ORDERED: Insulin Regular, Human 100 UNIT/ML IV PRN (12:33)
[2019-04-12] MEDS ORDERED: *HR* Dextrose 50 % in Water (Syg) 50 ML SYRINGE IVP PRN (12:33)
[2019-04-12] MEDS ORDERED: Naloxone 0.4 MG/ML INJ IVP PRN (12:33)
--- NOTE | 2019-04-12 12:33 | Operative Note ---
Date of procedure: 04/12/19 Pre-op diagnosis: 1. CAD 2. Atrial fibrillation, chronic Post-op diagnosis: same Procedure: 1. CABG 1 (WILSON to LAD). 2. Endoscopic vein harvesting, greater saphenous vein from right lower extremity. 3. Endoscopic vein harvesting, greater saphenous vein from left lower extremity. Implants: None. Complications: None. Anesthesia: GETA Surgeon: Fifi Wei Was there an hospital nursing assistant present: Yes Autoglazier: Stone Edgar Estimated blood loss (cc): 500 Specimen: None. Condition: stable Disposition: ICU Procedure in Detail: INDICATIONS FOR OPERATION: The patient is a 74 year old type II diabetic, hypertensive man with known known atrial fibrillation, congestive heart failure, hypercholesterolemia, cerebrovascular disease, and peripheral arterial disease. The patient has had lower extremity edema and erythema with wounds for 1-2 months. He has been treated with oral antibiotics on an outpatient basis 3 separate times without resolution. He was admitted to [facility] on 03/04/2019 for inpatient therapy of his persistently draining lower extremity wounds. He has leg pain, particularly near the open wounds; however, denies any chills or fever. A wound culture revealed a polymicrobial infection including Enterobacter cloacae, Enterococcus faecalis, Serratia marcescens, and Streptococcus dysgalactiae. He is currently on intravenous antibiotics with some improvement in his lower extremity edema and swelling. During this hospitalization, he experienced a 21 beat run of nonsustained ventricular tachycardia. Cardiology was consulted. The patient underwent a transthoracic echocardiogram which revealed an LVEF 45%. Subsequent cardiac catheterization performed today revealed severe 3 vessel CAD and it LVEF 60%. In particular, the patient has a 40% mid left main lesion, a completely occluded proximal LAD which fills distally via left to left collaterals, a 50% ramus intermediate branch lesion, a 50% proximal LCx lesion, and a completely occluded proximal RCA which fills distally via left to right collaterals. He has been recommended for CABG after his lower extremity cellulitis had resolved. The patient was treated in the [facility] for approximately one month before his cellulitis and open wounds had healed. During that time he had no complaints of substernal chest pain or shortness of breath. FINDINGS AT OPERATION: The aorta was of normal caliber without calcification. The patient had extensive pericarditis with adhesions between the epicardium and the pericardium. 3 separate areas of calcific pericarditis were noted along the anterior pulmonary artery, left lateral heart border and left atrial appendage, and inferior vena cava. This precluded complete decortication of the heart. The LAD which was completely occluded measured approximately 1.25-1.5 mm in diameter. The remaining coronary arteries including the ramus intermediate branch, LCx, and RCA with distal branches could not be identified due to a presumed intramyocardial region and extensive pericardial adhesions. The greater saphenous vein was harvested from both the left lower extremity and the right lower extremity from the knee to the groin and anticipation of performing further grafts. The total bypass time was 60 minutes, cross-clamp time 31 minutes, intentional hypothermia of 34.5 degrees centigrade. DESCRIPTION FOR OPERATION: after obtaining informed operative consent from the patient, he was taken to the operating room where a satisfactory general endotracheal anesthetic was induced. Appropriate monitoring lines were placed, and the patient's chest, abdomen, and lower extremities were prepped and draped in a sterile fashion. The greater saphenous vein was harvested endoscopically from the right lower extremity from the knee to the groin. The vein was removed, distended, and found to be of good quality. In anticipation of performing multiple grafts requiring saphenous vein, the greater saphenous vein was harvested endoscopically from the left lower extremity from the knee to the groin. The vein was removed, distended, and found to be of good quality. The subcutaneous tissue and skin edges were reapproximated running Vicryl sutures. Simultaneously, a standard median sternotomy incision was made and the sternum divided. The WILSON was taken down from its bed and side branches divided between hemoclips. The sternum was and the pericardium was opened and extensive adhesions between the epicardium and pericardium were encountered. These adhesions were taken down using a combination of blunt dissection and sharp scissors dissection. Extensive calcific pericarditis was noted along the anterior portion of the pulmonary artery, the left lateral heart border and left atrial appendage, and the lower right ventriclar/inferior vena cava junction. The calcification along the pulmonary artery was taken down by resecting the pericardium; however, the calcification near the left lateral heart border and left atrial appendage could not be taken down without fear of transecting the left phrenic nerve. Likewise, the heavy calcification along the lower right ventriclar/inferior vena cava junction could not be taken down without fear of transecting the right phrenic nerve. At this point it was determined that the venous cannulation would be performed through the right femoral vein. The right groin was opened and the sapheno-femoral junction was identified. A 5-0 Prolene pursestring suture was placed around the saphenofemoral junction. An additional pursestring suture was placed in the distal ascending aorta and the mid- ascending aorta. The patient was heparinized with used to is greater than 200 seconds, the distal ascending aorta was cannulated followed by placement of a long venous cannula through the right sapheno-femoral junction. The cannula was positioned in the right atrium using intraoperative transesophageal echocardiography. A stab-in antegrade metabolic cannula was placed in the mid- ascending aorta. The patient was placed on bypass and the temperature allowed to drift to 34.5 degrees centigrade. Additional adhesions were taken down with the patient on bypass; however, the heavy calcification along the left lateral heart border and the lower right ventricular/IVC junction did not be taken down. At this time the Maze procedure was abandoned due to risk of causing major hemorrhage due to the extensive calcification. Distal targets were searched for both prior to bypass and on bypass with the heart arrested. Although these vessels appeared large on the catheterization film, the ramus intermediate branch, LCx and OM branches, and RCA and PDA branch not be identified. This may have been due to an intramyocardial course and extensive pericardial adhesions. Several minutes were spent in an attempt to identify additional branches, but this was unsuccessful. The aorta was crossclamped and the patient received 700 mL of cold antegrade crystalloid cardioplegia through the aortic root. The patient's heart obtained rapid diastolic arrest. This point the WILSON was anastomosed to the LAD in an end-to-side fashion. The anastomosis found to be hemostatic and the mammary pedicle was tacked to the epicardium using interrupted 5-0 silk suture. Rewarming was begun during this anastomosis. Aortic cross-clamp was released and the patient's heart regained normal sinus rhythm spontaneously. The patient was loaded with amiodarone and a amiodarone drip was started in hopes of maintaining normal sinus rhythm. Two right ventricular temporary epicardial pacing lesion placed, and 3 chest tubes were placed, 2 in the mediastinum and one into the left pleural space. When the patient's systemic temperature reached 36 degrees centigrade, he was ventilated and received volume. He was weaned from bypass required no inotropic support. Protamine was administered and the aortic and venous cannula removed. The aortic cannulation site was reinforced a pledgeted 4-0 Prolene suture and the sapheno-femoral junction was reinforced with a running 5-0 Prolene suture. The pericardium was loosely approximated in the midline over the aorta and pulmonary artery; however, could not be reapproximated over the right ventricle due to excessive tension. The sternum was reapproximated using doubled wires. The pectoralis major fascia, rectus pelvis fascia, subcutaneous tissue, and skin edges were reapproximated running Vicryl sutures. The right groin incision was closed in a similar fashion. Sterile dressings were applied. The patient was transferred to the ICU in satisfactory postoperative condition. There were no intraoperative, occasions, and instrument, needle, and sponge count were correct at end of operation.
[2019-04-12] MEDS ORDERED: Norepinephrine 4 MG in D5% in Water 250 ML IVC SCH (12:45)
[2019-04-12] MEDS ORDERED: Insulin Human Regular 100 UNIT in 0.9 % Sodium Chloride 100 ML IVC SCH (12:45)
[2019-04-12 13:11] LABS: ABG Base Excess -2 mEq/L (-2 to 3); ABG HCO3 24 mEq/L (21-27); ABG Oxygen Saturation 96 % (95-98); ABG PCO2 46 mmHg (35-45); ABG PH 7.33 pH Units (7.32-7.45); ABG PO2 87 mmHg (85-104); ABG TCO2 25 mEq/L (20-26); Blood Gas Modality VC; Blood Gas PEEP 5 cm H2O; Blood Gas VT 600 cc
[2019-04-12 13:18] LABS: Basophils # 0.1 K/mcL (0.0-0.2); Basophils % 0.4 %; Eosinophils # 0.1 K/mcL (0.0-0.6); Eosinophils % 0.6 %; Hematocrit 43.7 % (37.5-50.1); Immature Granulocytes % 1.4 % (0-4); Lymphocytes # 1.2 K/mcL (0.6-4.6); Lymphocytes % 5.4 %; Mean Corpuscular Hemoglobin 29.8 pg (28.0-33.3); Mean Platelet Volume 10.9 fL (9.4-12.4); Monocytes # 1.4 K/mcL (0.0-1.3); Monocytes % 6.3 %; Platelet Count 140 K/mcL (140-400); Red Cell Distribution Width 15.3 % (11.5-14.5); Segmented Neutrophils % 85.9 %
[2019-04-12 13:26] LABS: INR 1.4; Prothrombin Time 15.7 Seconds (9.4-12.1); White Blood Count 22.1 K/mcL (4.3-11.1)
[2019-04-12 13:29] LABS: Activated Partial Thrombo Time 34.1 Seconds (26.0-36.0)
[2019-04-12 13:42] LABS: BUN/Creatinine Ratio 21 (6-26); Blood Urea Nitrogen 18 mg/dL (8-23); Calcium 8.5 mg/dL (8.6-10.3); Carbon Dioxide 25 mEq/L (23-29); Chloride 105 mEq/L (98-107); Glucose 223 mg/dL (70-105); Magnesium 2.7 mg/dL (1.6-2.6); Osmolality,Calculated 291 (280-300); Potassium 4.1 mEq/L (3.5-5.1); Sodium 136 mEq/L (136-145); eGFR For African Americans > 60 (> 60); eGFR For Non-African Americans > 60 (> 60)
[2019-04-12] MEDS: niCARdipine 20 MG in 0.9 % Sodium Chloride 192 ML IVC SCH ×5 (14:12→23:12)
[2019-04-12] MEDS: Ringers Solution, Lactated 1,000 ML IVC SCH ×2 (14:12→23:12)
[2019-04-12] MEDS: Nitroglycerin 25 MG/250 ML INFUS..BTL IVC SCH ×2 (14:15→19:13)
[2019-04-12 14:16] LABS: Mixed Venous Blood pCO2 60 mmHg (44-46); Mixed Venous Blood pH 7.23 pH Units (7.34-7.36); Mixed Venous Blood pO2 82 mmHg (35-45)
[2019-04-12] MEDS: Pantoprazole 40 MG VIAL IVP SCH (14:18)
[2019-04-12] MEDS: 0.9 % Sodium Chloride w KCl 20 MEQ/1,000 ML MLS IVC SCH (14:19)
[2019-04-12 14:31] LABS: Mixed Venous Blood O2 Hgb 93.9 % (60-80)
[2019-04-12] MEDS ORDERED: *HR* Phenylephrine 10 MG/ML VIAL IVC ONE (14:57)
[2019-04-12] MEDS ORDERED: Mannitol 25% vial 12.5 GM/50 ML VIAL IVP ONE (14:57)
[2019-04-12] MEDS ORDERED: *HR* Magnesium Sulfate 2 GM/50 ML PIGGYBACK IVPB ONE (14:57)
[2019-04-12] MEDS ORDERED: Tranexamic Acid 1,000 MG/10 ML VIAL IVPB ONE (14:57)
[2019-04-12] MEDS ORDERED: *HR* Heparin 10,000 UNIT/10 ML VIAL IV ONE (14:57)
[2019-04-12] MEDS ORDERED: Albumin Human 25% 25 GM/100 ML IV.SOLN IV ONE (14:57)
[2019-04-12] MEDS ORDERED: Lidocaine 2% Syringe 100 MG/5 ML IV ONE (14:57)
[2019-04-12] MEDS: *HR* FentaNYL (PF) 100 MCG/2 ML VIAL IVP PRN ×2 (15:00→17:49)
[2019-04-12] MEDS ORDERED: Sodium Bicarbonate 50 MEQ/50 ML VIAL IVC ONE (15:01)
[2019-04-12] MEDS: *HR* OxyCODONE/APAP 5/325 TABLET PO PRN ×2 (15:36→19:17)
--- NOTE | 2019-04-12 16:57 | Electrocardiograph Report ---
[place] [id number] Test Date: 2019-04-12 Pat Name: Radames Chavez Department: 109 Room: [facility] Gender: M Transplant Coordinator: TU : 1945 Requested By: Pio Wei Order Number: [id number] Reading MD: kM Bacon Measurements Intervals [place] Rate: 64 P: [place]: 0 QRS: 108 QRSD: 147 T: 97 QT: 514 QTc: 523 Interpretive Statements SINUS RHYTHM WITH PACs RIGHT AXIS DEVIATION RIGHT BUNDLE BRANCH BLOCK Electronically Signed On 04-12-2019 16:55:49 EDT by Mk Bacon
[2019-04-12] MEDS: Amiodarone Premix 360 MG/200 ML BAG IVC SCH (17:00)
[2019-04-12] MEDS: Metoclopramide 10 MG/2 ML VIAL IVP SCH ×2 (17:49→23:11)
[2019-04-12 18:27] LABS: ABG Base Excess -3 mEq/L (-2 to 3); ABG HCO3 23 mEq/L (21-27); ABG Oxygen Saturation 97 % (95-98); ABG PCO2 47 mmHg (35-45); ABG PH 7.31 pH Units (7.32-7.45); ABG PO2 101 mmHg (85-104); ABG TCO2 25 mEq/L (20-26); Blood Gas Modality VC; Blood Gas PEEP 5 cm H2O; Blood Gas VT 600 cc
--- NOTE | 2019-04-12 18:56 | Anesthesia Evaluation Post Op ---
Date of Encounter: 04/12/19 Time of Encounter: 18:54 - Vital Signs Vital Signs: Vital Signs/O2 Sat/Glucose, Most Recent Temp Pulse Resp BP Pulse Ox 98.6 F 82 11 101/54 91 04/12/19 07:24 04/12/19 07:24 04/12/19 15:25 04/12/19 15:25 04/12/19 15:25 Blood Glucose* 161 - Lungs Lungs: Clear Ascult./Percussion - Airway Airway: Intubated - Cardiovascular Regular Rate - Mental Status Mental Status: Sedated - Pain Pain Scale used: Unable to assess - Nausea Vomiting Nausea Vomiting: Not Present - Hydration Hydration: NPO, Pugh catheter Notes: 04/12/19 18:55 patient remains in ICU POD#0 CABG.
[2019-04-12 20:52] LABS: ABG Base Excess -3 mEq/L (-2 to 3); ABG HCO3 25 mEq/L (21-27); ABG Oxygen Saturation 96 % (95-98); ABG PCO2 56 mmHg (35-45); ABG PH 7.26 pH Units (7.32-7.45); ABG PO2 94 mmHg (85-104); ABG TCO2 27 mEq/L (20-26); Blood Gas Modality CPAP/PS; Blood Gas PEEP 5 cm H2O; Blood Gas Pressure Support 5 cm H2O
[2019-04-12 22:40] LABS: ABG Base Excess -3 mEq/L (-2 to 3); ABG HCO3 23 mEq/L (21-27); ABG Oxygen Saturation 96 % (95-98); ABG PCO2 41 mmHg (35-45); ABG PH 7.35 pH Units (7.32-7.45); ABG PO2 89 mmHg (85-104); ABG TCO2 24 mEq/L (20-26); Blood Gas Modality CPAP/PS; Blood Gas PEEP 5 cm H2O; Blood Gas Pressure Support 5 cm H2O
[2019-04-13] MEDS: *HR* OxyCODONE/APAP 5/325 TABLET PO PRN ×5 (00:21→23:06)
[2019-04-13 03:06] LABS: Basophils % 0.2 %; Hematocrit 43.1 % (37.5-50.1); Hemoglobin 13.7 g/dL (12.9-16.9); Immature Granulocytes % 0.5 % (0-4); Lymphocytes % 6.8 %; Mean Corpuscular HGB Conc 31.8 g/dL (31.6-35.5); Mean Corpuscular Hemoglobin 29.5 pg (28.0-33.3); Mean Corpuscular Volume 92.9 fL (83.0-100.0); Mean Platelet Volume 11.3 fL (9.4-12.4); Monocytes # 1.1 K/mcL (0.0-1.3); Monocytes % 7.1 %; Neutrophils # 12.9 K/mcL (1.6-8.9); Platelet Count 128 K/mcL (140-400); Red Blood Count 4.64 M/mcL (4.19-5.50); Red Cell Distribution Width 15.6 % (11.5-14.5); Segmented Neutrophils % 85.4 %
[2019-04-13 03:15] LABS: INR 1.4; Prothrombin Time 15.4 Seconds (9.4-12.1)
[2019-04-13 03:18] LABS: Activated Partial Thrombo Time 30.4 Seconds (26.0-36.0)
[2019-04-13 03:27] LABS: BUN/Creatinine Ratio 22 (6-26); Blood Urea Nitrogen 22 mg/dL (8-23); Calcium 8.6 mg/dL (8.6-10.3); Carbon Dioxide 22 mEq/L (23-29); Chloride 109 mEq/L (98-107); Glucose 180 mg/dL (70-105); Magnesium 2.4 mg/dL (1.6-2.6); Osmolality,Calculated 298 (280-300); Potassium 4.4 mEq/L (3.5-5.1); Sodium 140 mEq/L (136-145); eGFR For African Americans > 60 (> 60); eGFR For Non-African Americans > 60 (> 60)
[2019-04-13] MEDS: Amiodarone Premix 360 MG/200 ML BAG IVC SCH ×2 (04:21→14:21)
[2019-04-13] MEDS: Metoclopramide 10 MG/2 ML VIAL IVP SCH ×4 (05:08→23:06)
[2019-04-13] MEDS: *HR* FentaNYL (PF) 100 MCG/2 ML VIAL IVP PRN ×2 (05:08→09:06)
--- NOTE | 2019-04-13 06:33 | Cardiothoracic Progress Note ---
Date of Encounter: 04/13/19 Time of Encounter: 06:26 - Assessment and plan (1) CAD (coronary artery disease) Current Visit: No Status: Acute The patient remained hemodynamic stable overnight. He is currently extubated and breathing comfortably. He was able to sit in a chair without difficulty. The arterial line, Pugh catheter, and [place] M catheter be removed. The patient be monitored in the ICU today. The assessment and plan as outlined above was discussed with the patient and/or family members who expressed understanding and agreement. All questions were answered. Qualifiers: Coronary Disease-Associated Artery/Lesion type: [place] artery [place] vs. transplanted heart: [place] heart Associated angina: without angina Qualified Code(s): I25.10 - Atherosclerotic heart disease of [place] coronary artery without angina pectoris - Subjective Procedure(s) Performed: POD#1 S/P CABG1 Interval history: The patient remained hemodynamically stable overnight. He is currently extubated and breathing comfortably. He was able to sit in a chair without difficulty. He has no complaints. Vital Signs, Last 4 Hours Temp Pulse Resp BP Pulse Ox 04/13/19 06:14 71 12 112/63 92 04/13/19 05:07 98 F 67 14 127/69 92 04/13/19 04:13 67 15 104/80 97 04/13/19 03:28 16 97 04/13/19 03:13 98 F 69 17 128/59 94 Oxgyen Flow Rate Oxygen Flow Rate (LPM) 2 Clinical Data, last 8 Hours Output, Chest Tube Drainage 0 Amount [medialstinal #2] Output, Chest Tube Drainage 10 Amount [medialstinal #2] Output, Chest Tube Drainage 20 Amount [medialstinal #2] Output, Chest Tube Drainage 10 Amount [medialstinal #2] Output, Chest Tube Drainage 10 Amount [medialstinal #2] Output, Chest Tube Drainage 10 Amount [medialstinal #2] Output, Chest Tube Drainage 5 Amount [medialstinal #2] Output, Chest Tube Drainage 0 Amount [mediastinal #1] Output, Chest Tube Drainage 15 Amount [mediastinal #1] Output, Chest Tube Drainage 30 Amount [mediastinal #1] Output, Chest Tube Drainage 10 Amount [mediastinal #1] Output, Chest Tube Drainage 20 Amount [mediastinal #1] Output, Chest Tube Drainage 15 Amount [mediastinal #1] Output, Chest Tube Drainage 15 Amount [mediastinal #1] Output, Chest Tube Drainage 15 Amount [mediastinal #1] Output, Chest Tube Drainage 10 Amount [mediastinal #1] Weight 04/11/19 04/12/19 04/13/19 23:59 23:59 23:59 Weight 86.183 kg 87 kg - Physical Examination General: Conversant, No Apparent Distress Neck: No JVD, Normal carotid pulses Cardiac: Reg Rate and Rhythm, Normal S1 and S2, No Murmur Incision: No signs of infection, Dry/intact dressing Sternum: Stable Chest tubes: Minimal drainage, Other (No air leak) Pacing Wires: In place Lungs: Normal Breath Sounds, No Wheeze, Rales, Rhonchi Neuro: Alert and responsive, No focal deficits noted Vascular: Normal capillary refill Extremities: No Clubbing, No Cyanosis, No Edema - Labs 04/13/19 02:55 04/13/19 02:55 Lab Results, Last 24 hours 04/12/19 04/12/19 04/12/19 13:08 13:08 13:08 WBC 22.1 H D Hgb 14.0 Hct 43.7 Plt Count 140 INR 1.4 APTT 34.1 Sodium 136 Potassium 4.1 Chloride 105 Carbon Dioxide 25 BUN 18 Creatinine 0.84 Glucose 223 H Calcium 8.5 L Magnesium 2.7 H 04/13/19 04/13/19 04/13/19 02:55 02:55 02:55 WBC 15.0 H Hgb 13.7 Hct 43.1 Plt Count 128 L INR 1.4 APTT 30.4 Sodium 140 Potassium 4.4 Chloride 109 H Carbon Dioxide 22 L BUN 22 Creatinine 0.99 Glucose 180 H Calcium 8.6 Magnesium 2.4 - Imaging Chest Xray: image reviewed (No pneumothorax. Minimal atelectasis/infiltrates.) - VTE Reasons for not Prescribing Prophylaxis: Medical contraindication Documentation of Mechanical Device: Graduated compression elastic hosiery Consult Discharge Plan - Plan Referrals: Lois Mast MD [Primary Care Provider] -
[2019-04-13] MEDS ORDERED: Furosemide 20 MG/2 ML VIAL IVP SCH (09:00)
[2019-04-13] MEDS ORDERED: Aspirin Enteric Coated 81 MG Tablet PO SCH (09:00)
[2019-04-13] MEDS: Chlorhexidine Rinse 15 ML MOUTHWASH MM SCH ×2 (09:05→21:00)
[2019-04-13] MEDS: Pantoprazole 40 MG VIAL IVP SCH (09:06)
[2019-04-13] MEDS: 0.9 % Sodium Chloride w KCl 20 MEQ/1,000 ML MLS IVC SCH (09:35)
[2019-04-13] MEDS: Nitroglycerin 25 MG/250 ML INFUS..BTL IVC SCH (13:39)
[2019-04-13] MEDS: niCARdipine 20 MG in 0.9 % Sodium Chloride 192 ML IVC SCH (13:39)
[2019-04-13] MEDS ORDERED: Dextrose Gel 15 GM/37.5 ML TUBE PO PRN ×2 (14:21)
[2019-04-13] MEDS ORDERED: D5% in Water 1,000 ML IVC PRN (14:21)
[2019-04-13] MEDS ORDERED: Naloxone 0.4 MG/ML INJ IVP PRN (14:21)
[2019-04-13] MEDS ORDERED: *HR* Dextrose 50 % in Water (Syg) 50 ML SYRINGE IVP PRN (14:21)
[2019-04-13] MEDS ORDERED: Acetaminophen 325 MG TABLET PO PRN (14:21)
[2019-04-13] MEDS ORDERED: Ondansetron 4 MG/2 ML VIAL IVP PRN (14:21)
[2019-04-13] MEDS: Insulin LISPRO 300 UNITS/3 ML VIAL SQ SCH ×2 (18:56→21:12)
[2019-04-13] MEDS: *HR* Dabigatran 150 MG CAPSULE PO SCH (21:00)
[2019-04-13] MEDS: Furosemide 20 MG/2 ML VIAL IVP SCH (21:01)
[2019-04-14] MEDS: Amiodarone Premix 360 MG/200 ML BAG IVC SCH (01:36)
[2019-04-14 03:18] LABS: Basophils # 0.1 K/mcL (0.0-0.2); Basophils % 0.3 %; Immature Granulocytes % 0.6 % (0-4); Lymphocytes % 13.2 %; Mean Corpuscular HGB Conc 31.7 g/dL (31.6-35.5); Mean Corpuscular Hemoglobin 29.6 pg (28.0-33.3); Mean Corpuscular Volume 93.4 fL (83.0-100.0); Mean Platelet Volume 11.4 fL (9.4-12.4); Monocytes # 1.8 K/mcL (0.0-1.3); Monocytes % 11.9 %; Neutrophils # 11.2 K/mcL (1.6-8.9); Platelet Count 132 K/mcL (140-400); Red Blood Count 4.39 M/mcL (4.19-5.50); Red Cell Distribution Width 15.8 % (11.5-14.5); White Blood Count 15.1 K/mcL (4.3-11.1)
[2019-04-14 03:36] LABS: BUN/Creatinine Ratio 26 (6-26); Blood Urea Nitrogen 24 mg/dL (8-23); Carbon Dioxide 26 mEq/L (23-29); Chloride 103 mEq/L (98-107); Potassium 4.2 mEq/L (3.5-5.1); Sodium 137 mEq/L (136-145)
[2019-04-14 03:37] LABS: Calcium 8.6 mg/dL (8.6-10.3); Glucose 151 mg/dL (70-105); Osmolality,Calculated 291 (280-300); eGFR For African Americans > 60 (> 60); eGFR For Non-African Americans > 60 (> 60)
[2019-04-14] MEDS: Metoclopramide 10 MG/2 ML VIAL IVP SCH ×3 (05:02→17:32)
--- NOTE | 2019-04-14 07:10 | Cardiothoracic Progress Note ---
Date of Encounter: 04/14/19 Time of Encounter: 07:08 - Assessment and plan (1) CAD (coronary artery disease) Current Visit: No Status: Acute The assessment and plan as outlined above was discussed with the patient and/or family members who expressed understanding and agreement. All questions were answered. Transfer orders are written. The patient will be transferred to the floor when a bed becomes available. We will check a stat portable chest x-ray. Qualifiers: Coronary Disease-Associated Artery/Lesion type: [place] artery [place] vs. transplanted heart: [place] heart Associated angina: without angina Qualified Code(s): I25.10 - Atherosclerotic heart disease of [place] coronary artery without angina pectoris - Subjective Interval history: The patient has no complaints. Vital Signs, Last 4 Hours Pulse Resp BP Pulse Ox 04/14/19 05:03 78 18 124/81 96 04/14/19 03:56 18 98 04/14/19 03:33 79 18 130/65 97 Oxgyen Flow Rate Oxygen Flow Rate (LPM) 2 Clinical Data, last 8 Hours Output, Chest Tube Drainage 50 Amount [medialstinal #2] Output, Chest Tube Drainage 20 Amount [medialstinal #2] Output, Chest Tube Drainage 60 Amount [mediastinal #1] Output, Chest Tube Drainage 70 Amount [mediastinal #1] Output, Urine Amount 200 Weight 04/12/19 04/13/19 04/14/19 23:59 23:59 23:59 Weight 86.183 kg 87 kg Lungs are clear to percussion and auscultation. Heart is in a normal sinus rhythm. All incisions are healing well without signs of infection and the sternum is stable. Chest tube drainage is minimal and there is no air leak. The chest tubes were removed and the pacing wires were left in place. - Labs 04/14/19 03:00 04/14/19 03:00 Lab Results, Last 24 hours 04/14/19 04/14/19 03:00 03:00 WBC 15.1 H Hgb 13.0 Hct 41.0 Plt Count 132 L Sodium 137 Potassium 4.2 Chloride 103 Carbon Dioxide 26 BUN 24 H Creatinine 0.92 Glucose 151 H Calcium 8.6 - VTE Reasons for not Prescribing Prophylaxis: Medical contraindication Documentation of Mechanical Device: Graduated compression elastic hosiery Consult Discharge Plan - Plan Referrals: Lois Mast MD [Primary Care Provider] -
[2019-04-14] MEDS: Insulin LISPRO 300 UNITS/3 ML VIAL SQ SCH ×4 (08:24→19:45)
[2019-04-14] MEDS: Chlorhexidine Rinse 15 ML MOUTHWASH MM SCH ×2 (08:29→21:19)
[2019-04-14] MEDS: *HR* Amiodarone 200 MG TABLET PO SCH (08:29)
[2019-04-14] MEDS: *HR* Dabigatran 150 MG CAPSULE PO SCH ×2 (08:29→21:19)
[2019-04-14] MEDS: Aspirin Enteric Coated 81 MG Tablet PO SCH (08:29)
[2019-04-14] MEDS: Furosemide 20 MG/2 ML VIAL IVP SCH ×2 (08:30→21:19)
[2019-04-14] MEDS: Pantoprazole 40 MG VIAL IVP SCH (08:31)
[2019-04-14] MEDS: *HR* OxyCODONE/APAP 5/325 TABLET PO PRN (14:07)
[2019-04-15] MEDS: Metoclopramide 10 MG/2 ML VIAL IVP SCH ×4 (00:57→18:30)
[2019-04-15 04:54] LABS: Basophils # 0.1 K/mcL (0.0-0.2); Basophils % 0.3 %; Eosinophils % 0.2 %; Hematocrit 42.4 % (37.5-50.1); Hemoglobin 13.6 g/dL (12.9-16.9); Immature Granulocytes % 0.6 % (0-4); Lymphocytes # 1.4 K/mcL (0.6-4.6); Lymphocytes % 9.5 %; Mean Corpuscular HGB Conc 32.1 g/dL (31.6-35.5); Mean Corpuscular Volume 93.4 fL (83.0-100.0); Mean Platelet Volume 11.2 fL (9.4-12.4); Monocytes # 1.4 K/mcL (0.0-1.3); Monocytes % 9.8 %; Neutrophils # 11.5 K/mcL (1.6-8.9); Platelet Count 147 K/mcL (140-400); Red Blood Count 4.54 M/mcL (4.19-5.50); Red Cell Distribution Width 15.6 % (11.5-14.5); Segmented Neutrophils % 79.6 %; White Blood Count 14.4 K/mcL (4.3-11.1)
[2019-04-15 05:03] LABS: BUN/Creatinine Ratio 29 (6-26); Blood Urea Nitrogen 24 mg/dL (8-23); Calcium 8.8 mg/dL (8.6-10.3); Carbon Dioxide 25 mEq/L (23-29); Chloride 104 mEq/L (98-107); Glucose 141 mg/dL (70-105); Osmolality,Calculated 290 (280-300); Potassium 3.8 mEq/L (3.5-5.1); Sodium 137 mEq/L (136-145); eGFR For African Americans > 60 (> 60); eGFR For Non-African Americans > 60 (> 60)
[2019-04-15] MEDS: Insulin LISPRO 300 UNITS/3 ML VIAL SQ SCH ×4 (07:44→21:33)
--- NOTE | 2019-04-15 07:48 | Cardiothoracic Progress Note ---
Date of Encounter: 04/15/19 Time of Encounter: 07:45 - Assessment and plan (1) CAD (coronary artery disease) Current Visit: No Status: Acute The patient remained hemodynamically stable overnight. He remains extubated and is breathing comfortably. He was able to sit in a chair without difficulty. . The patient be monitored in the ICU today. The chest x-ray will be repeated to evaluate the left lung franklin. The assessment and plan as outlined above was discussed with the patient and/or family members who expressed understanding and agreement. All questions were answered. Qualifiers: Coronary Disease-Associated Artery/Lesion type: [place] artery [place] vs. transplanted heart: [place] heart Associated angina: without angina Qualified Code(s): I25.10 - Atherosclerotic heart disease of [place] coronary artery without angina pectoris - Subjective Procedure(s) Performed: POD#3 S/P CABG1 Interval history: The patient remained hemodynamically stable overnight. He remains extubated and is breathing comfortably. He was able to sit in a chair without difficulty. He has no complaints. Vital Signs, Last 4 Hours Temp Pulse Resp Pulse Ox 04/15/19 04:08 82 04/15/19 04:00 98.8 F 72 18 92 04/15/19 03:58 18 92 Oxgyen Flow Rate Oxygen Flow Rate (LPM) 2 Clinical Data, last 8 Hours Output, Urine Amount 250 Output, Urine Amount 450 Weight 04/13/19 04/14/19 04/15/19 23:59 23:59 23:59 Weight 87 kg 90 kg - Physical Examination General: Conversant, No Apparent Distress Neck: No JVD, Normal carotid pulses Cardiac: Reg Rate and Rhythm (Normal sinus rhythm with PACs), Normal S1 and S2, No Murmur Incision: No signs of infection, Dry/intact dressing Sternum: Stable Pacing Wires: In place Lungs: Normal Breath Sounds (Right lung franklin), Decreased breath sounds (Left lung franklin) Neuro: Alert and responsive, No focal deficits noted Vascular: Normal capillary refill Extremities: No Clubbing, No Cyanosis, No Edema - Labs 04/15/19 04:20 04/15/19 04:20 Lab Results, Last 24 hours 04/15/19 04/15/19 04:20 04:20 WBC 14.4 H Hgb 13.6 Hct 42.4 Plt Count 147 Sodium 137 Potassium 3.8 Chloride 104 Carbon Dioxide 25 BUN 24 H Creatinine 0.84 Glucose 141 H Calcium 8.8 - VTE Reasons for not Prescribing Prophylaxis: Medical contraindication Documentation of Mechanical Device: Graduated compression elastic hosiery Consult Discharge Plan - Plan Referrals: Lois Mast MD [Primary Care Provider] -
[2019-04-15] MEDS: Furosemide 20 MG/2 ML VIAL IVP SCH ×2 (08:38→21:34)
[2019-04-15] MEDS: Pantoprazole 40 MG VIAL IVP SCH (08:38)
[2019-04-15] MEDS: Chlorhexidine Rinse 15 ML MOUTHWASH MM SCH ×2 (08:38→21:33)
[2019-04-15] MEDS: *HR* Amiodarone 200 MG TABLET PO SCH (08:39)
[2019-04-15] MEDS: *HR* Dabigatran 150 MG CAPSULE PO SCH ×2 (08:39→21:33)
[2019-04-15] MEDS: Aspirin Enteric Coated 81 MG Tablet PO SCH (08:39)
[2019-04-16] MEDS: Insulin LISPRO 300 UNITS/3 ML VIAL SQ SCH ×4 (07:10→21:16)
--- NOTE | 2019-04-16 07:15 | Cardiothoracic Progress Note ---
Date of Encounter: 04/16/19 Time of Encounter: 06:54 - Assessment and plan (1) CAD (coronary artery disease) Current Visit: No Status: Acute The patient remained hemodynamically stable overnight. He is breathing comfortably. The patient will begin ambulating in his room today. The assessment and plan as outlined above was discussed with the patient and/or family members who expressed understanding and agreement. All questions were answered. Qualifiers: Coronary Disease-Associated Artery/Lesion type: [place] artery [place] vs. transplanted heart: [place] heart Associated angina: without angina Qualified Code(s): I25.10 - Atherosclerotic heart disease of [place] coronary artery without angina pectoris - Subjective Procedure(s) Performed: POD#4 S/P CABG1 Interval history: The patient remained hemodynamically stable overnight. He is doing comfortably in his hospital bed. He has no complaints. Vital Signs, Last 4 Hours Temp Pulse Resp BP Pulse Ox 04/16/19 06:55 98.2 F 76 18 138/71 94 04/16/19 04:10 98.3 F 64 20 120/70 91 04/16/19 04:04 20 91 04/16/19 03:48 98.3 F 64 18 120/70 92 Oxgyen Flow Rate Oxygen Flow Rate (LPM) 1 Clinical Data, last 8 Hours Output, Urine Amount 0 Output, Urine Amount 0 Weight 04/14/19 04/15/19 04/16/19 23:59 23:59 23:59 Weight 90 kg - Physical Examination General: Conversant, No Apparent Distress Neck: No JVD, Normal carotid pulses Cardiac: Reg Rate and Rhythm, Normal S1 and S2, No Murmur Incision: No signs of infection, Dry/intact dressing Sternum: Stable Pacing Wires: In place Lungs: Normal Breath Sounds, No Wheeze, Rales, Rhonchi Neuro: Alert and responsive, No focal deficits noted Vascular: Normal capillary refill Extremities: No Clubbing, No Cyanosis, No Edema - Labs 04/15/19 04:20 04/15/19 04:20 - VTE Reasons for not Prescribing Prophylaxis: Medical contraindication Documentation of Mechanical Device: Graduated compression elastic hosiery Consult Discharge Plan - Plan Referrals: Lois Mast MD [Primary Care Provider] -
[2019-04-16] MEDS: Pantoprazole 40 MG VIAL IVP SCH (07:42)
[2019-04-16] MEDS: *HR* Dabigatran 150 MG CAPSULE PO SCH ×2 (07:42→21:14)
[2019-04-16] MEDS: Chlorhexidine Rinse 15 ML MOUTHWASH MM SCH ×2 (07:42→21:14)
[2019-04-16] MEDS: *HR* Amiodarone 200 MG TABLET PO SCH (07:42)
[2019-04-16] MEDS: Aspirin Enteric Coated 81 MG Tablet PO SCH (07:42)
[2019-04-16] MEDS: *HR* OxyCODONE/APAP 5/325 TABLET PO PRN (21:14)
[2019-04-17] MEDS: *HR* Dabigatran 150 MG CAPSULE PO SCH ×2 (08:09→21:41)
[2019-04-17] MEDS: Chlorhexidine Rinse 15 ML MOUTHWASH MM SCH ×2 (08:09→21:41)
[2019-04-17] MEDS: Pantoprazole 40 MG VIAL IVP SCH (08:09)
[2019-04-17] MEDS: Insulin LISPRO 300 UNITS/3 ML VIAL SQ SCH ×4 (08:09→22:44)
[2019-04-17] MEDS: Aspirin Enteric Coated 81 MG Tablet PO SCH (08:09)
[2019-04-17] MEDS: *HR* Amiodarone 200 MG TABLET PO SCH (08:09)
--- NOTE | 2019-04-17 12:04 | Cardiothoracic Progress Note ---
Date of Encounter: 04/17/19 Time of Encounter: 12:03 - Assessment and plan (1) Atrial fibrillation with RVR Current Visit: No Status: Acute The assessment and plan as outlined above was discussed with the patient and/or family members who expressed understanding and agreement. All questions were answered. will give an extra metoprolol. increase to 25 bid (2) CAD (coronary artery disease) Current Visit: No Status: Acute The assessment and plan as outlined above was discussed with the patient and/or family members who expressed understanding and agreement. All questions were a nswered. order labs and xray for the am no angina Qualifiers: Coronary Disease-Associated Artery/Lesion type: [place] artery [place] vs. transplanted heart: [place] heart Associated angina: without angina Qualified Code(s): I25.10 - Atherosclerotic heart disease of [place] coronary artery w ithout angina pectoris Vital Signs, Last 4 Hours Temp Pulse Resp BP Pulse Ox 04/17/19 08:28 16 95 04/17/19 08:04 98.1 F 111 22 129/87 92 Oxgyen Flow Rate Oxygen Flow Rate (LPM) 2 Weight 04/15/19 04/16/19 04/17/19 23:59 23:59 23:59 Weight 90 kg 83.4 kg - Physical Examination General: Conversant, No Apparent Distress, Well developed Neck: No JVD Cardiac: Other (irregular irregular ) Incision: No signs of infection, Dry/intact dressing Lungs: Decreased breath sounds (decreased at the bases ) Neuro: Alert and responsive, No focal deficits noted, Cranial nerves intact Abdomen: Soft, Non-tender, Other (bs hypoactive ) - Labs 04/15/19 04:20 04/15/19 04:20 - VTE Reasons for not Prescribing Prophylaxis: Medical contraindication Documentation of Mechanical Device: Graduated compression elastic hosiery Consult Discharge Plan - Plan Referrals: Lois Mast MD [Primary Care Provider] - Fifi Wei MD [Partnered Physician] - 05/07/19 12:20 pm
[2019-04-17] MEDS: Famotidine 20 MG TABLET PO SCH (21:41)
[2019-04-17] MEDS: *HR* OxyCODONE/APAP 5/325 TABLET PO PRN (21:41)
[2019-04-18 07:39] LABS: Hematocrit 42.6 % (37.5-50.1); Hemoglobin 13.5 g/dL (12.9-16.9); Mean Corpuscular HGB Conc 31.7 g/dL (31.6-35.5); Mean Corpuscular Hemoglobin 29.1 pg (28.0-33.3); Mean Corpuscular Volume 91.8 fL (83.0-100.0); Mean Platelet Volume 10.6 fL (9.4-12.4); Platelet Count 228 K/mcL (140-400); Red Blood Count 4.64 M/mcL (4.19-5.50); Red Cell Distribution Width 15.4 % (11.5-14.5); White Blood Count 9.8 K/mcL (4.3-11.1)
[2019-04-18 08:01] LABS: BUN/Creatinine Ratio 31 (6-26); Blood Urea Nitrogen 23 mg/dL (8-23); Calcium 8.5 mg/dL (8.6-10.3); Carbon Dioxide 25 mEq/L (23-29); Chloride 102 mEq/L (98-107); Glucose 135 mg/dL (70-105); Magnesium 1.9 mg/dL (1.6-2.6); Osmolality,Calculated 290 (280-300); Potassium 3.5 mEq/L (3.5-5.1); Sodium 137 mEq/L (136-145); eGFR For African Americans > 60 (> 60); eGFR For Non-African Americans > 60 (> 60)
[2019-04-18] MEDS: *HR* Dabigatran 150 MG CAPSULE PO SCH ×2 (08:01→20:59)
[2019-04-18] MEDS: Famotidine 20 MG TABLET PO SCH ×2 (08:02→20:58)
[2019-04-18] MEDS: Chlorhexidine Rinse 15 ML MOUTHWASH MM SCH ×2 (08:02→22:00)
[2019-04-18] MEDS: *HR* Amiodarone 200 MG TABLET PO SCH (08:02)
[2019-04-18] MEDS: Aspirin Enteric Coated 81 MG Tablet PO SCH (08:02)
[2019-04-18] MEDS: Insulin LISPRO 300 UNITS/3 ML VIAL SQ SCH ×4 (08:07→21:00)
[2019-04-18] MEDS: *HR* OxyCODONE/APAP 5/325 TABLET PO PRN ×2 (14:36→20:57)
--- NOTE | 2019-04-18 14:45 | Cardiothoracic Progress Note ---
Date of Encounter: 04/18/19 Time of Encounter: 14:45 - Assessment and plan (1) S/P CABG x 1 Current Visit: Yes Status: Acute The assessment and plan as outlined above was discussed with the patient and/or family members who expressed understanding and agreement. All questions were answered. Assessment and plan overall Mr. Chavez is doing well. From a neurologic standpoint he is oriented. Pain is well controlled. From a cardiovascular standpoint his atrial fibrillation at rest is a heart rate of around 100 with exercise around 120's well controlled on Lopressor and amiodarone. For atrial fibrillation he had been on pradaxa preoperatively. We are not starting pradaxa postoperatively and he is not currently on any anti coagulation postoperatively. This will be addressed postoperatively prior to being discharged if there is any indiction or contraindication. Respiratory standpoint he is comfortable, breath sounds. GI no issues. He is eating, has had a bowel movement. From a fluids electrolytes and nutrition standpoint, his potassium is 35 and needs potassium replacement for that, magnesium 1.90 needs replacement for that and both rechecked in the morning. and I will give him a single dose of Lasix for his O2 requirement and 1+ peripheral edema. From a heme standpoint he is on subcutaneous heparin, walking slightly and wear ing jose roberto hose. Disposition he looks ready to be discharged soon. (2) Atrial fibrillation with RVR Current Visit: No Status: Acute The assessment and plan as outlined above was discussed with the patient and/or family members who expressed understanding and agreement. All questions were answered. (3) CAD (coronary artery disease) Current Visit: No Status: Acute The assessment and plan as outlined above was discussed with the patient and/or family members who expressed understanding and agreement. All questions were answered. Qualifiers: Coronary Disease-Associated Artery/Lesion type: [place] artery [place] vs. transplanted heart: [place] heart Associated angina: without angina Qualified Code(s): I25.10 - Atherosclerotic heart disease of [place] coronary artery without angina pectoris (4) CHF (congestive heart failure) Current Visit: No Status: Acute The assessment and plan as outlined above was discussed with the patient and/or family members who expressed understanding and agreement. All questions were answered. Qualifiers: Heart failure type: unspecified Heart failure chronicity: acute Qualified Code(s): I50.9 - Heart failure, unspecified (5) Cardiomyopathy Current Visit: No Status: Acute The assessment and plan as outlined above was discussed with the patient and/or family members who expressed understanding and agreement. All questions were answered. Qualifiers: Cardiomyopathy type: unspecified Qualified Code(s): I42.9 - Cardiomyopathy, unspecified - Subjective Interval history: Subjectively he looks good and has no complaints Vital Signs, Last 4 Hours Temp Pulse Resp BP Pulse Ox 04/18/19 12:14 99 F 93 18 107/83 93 04/18/19 11:23 18 96 Oxgyen Flow Rate Oxygen Flow Rate (LPM) 2 Weight 04/16/19 04/17/19 04/18/19 23:59 23:59 23:59 Weight 83.4 kg 83.8 kg - Physical Examination General: Conversant, No Apparent Distress HEENT: Atraumatic, Normocephaly, Trachea midline Neck: No JVD Cardiac: No Murmur Incision: No signs of infection, Dry/intact dressing Sternum: Stable Chest tubes: Other Lungs: Normal Breath Sounds Neuro: Alert and responsive, No focal deficits noted Vascular: Other Abdomen: Soft, Non-tender Skin: No rashes noted on visualized skin Musculoskeletal: No Chest Wall Tenderness Extremities: No Clubbing, No Cyanosis, No Edema - Labs 04/18/19 06:52 04/18/19 06:52 Lab Results, Last 24 hours 04/18/19 04/18/19 06:52 06:52 WBC 9.8 Hgb 13.5 Hct 42.6 Plt Count 228 D Sodium 137 Potassium 3.5 Chloride 102 Carbon Dioxide 25 BUN 23 Creatinine 0.74 Glucose 135 H Calcium 8.5 L Magnesium 1.9 - VTE Reasons for not Prescribing Prophylaxis: Medical contraindication Documentation of Mechanical Device: Graduated compression elastic hosiery Consult Discharge Plan - Plan Referrals: Lois Mast MD [Primary Care Provider] - Fifi Wei MD [Partnered Physician] - 05/07/19 12:20 pm
[2019-04-18] MEDS ORDERED: Furosemide 20 MG/2 ML VIAL IVP ONE (16:23)
[2019-04-19] MEDS: Insulin LISPRO 300 UNITS/3 ML VIAL SQ SCH ×4 (08:06→21:52)
[2019-04-19] MEDS: *HR* Dabigatran 150 MG CAPSULE PO SCH ×2 (08:13→21:51)
[2019-04-19] MEDS: Chlorhexidine Rinse 15 ML MOUTHWASH MM SCH ×2 (08:13→21:50)
[2019-04-19] MEDS: Famotidine 20 MG TABLET PO SCH ×2 (08:13→21:51)
[2019-04-19] MEDS: *HR* OxyCODONE/APAP 5/325 TABLET PO PRN (08:13)
[2019-04-19] MEDS: *HR* Amiodarone 200 MG TABLET PO SCH (08:13)
[2019-04-19] MEDS: Aspirin Enteric Coated 81 MG Tablet PO SCH (08:13)
--- NOTE | 2019-04-19 10:59 | Cardiothoracic Progress Note ---
Date of Encounter: 04/19/19 Time of Encounter: 10:57 - Assessment and plan (1) CAD (coronary artery disease) Current Visit: No Status: Acute The patient remained hemodynamically stable overnight. He is breathing comfortably. The patient will continue ambulating today. The assessment and plan as outlined above was discussed with the patient and/or family members who expressed understanding and agreement. All questions were answered. Qualifiers: Coronary Disease-Associated Artery/Lesion type: [place] artery [place] vs. transplanted heart: [place] heart Associated angina: without angina Qualified Code(s): I25.10 - Atherosclerotic heart disease of [place] coronary artery without angina pectoris - Subjective Procedure(s) Performed: POD#7 S/P CABG1 Interval history: The patient remained hemodynamically stable overnight. He is sitting in a chair at the bedside. He has been ambulating without difficulty. He has no complaints. Vital Signs, Last 4 Hours Temp Pulse Resp BP Pulse Ox 04/19/19 08:02 16 98 04/19/19 07:41 97.8 F 91 18 120/76 96 Oxgyen Flow Rate Oxygen Flow Rate (LPM) 0 Weight 04/17/19 04/18/19 04/19/19 23:59 23:59 23:59 Weight 83.4 kg 83.8 kg 83.2 kg - Physical Examination General: Conversant, No Apparent Distress Neck: No JVD, Normal carotid pulses Cardiac: Normal S1 and S2, No Murmur, Other (Irregular rate and rhythm (atrial fibrillation)) Incision: Dry/intact dressing Sternum: Stable Pacing Wires: Removed Lungs: Normal Breath Sounds, No Wheeze, Rales, Rhonchi Neuro: Alert and responsive, No focal deficits noted Vascular: Normal capillary refill Skin: No rashes noted on visualized skin Extremities: No Clubbing, No Cyanosis, No Edema - Labs 04/18/19 06:52 04/18/19 06:52 - VTE Reasons for not Prescribing Prophylaxis: Medical contraindication Documentation of Mechanical Device: Graduated compression elastic hosiery Consult Discharge Plan - Plan Referrals: Lois Mast MD [Primary Care Provider] - Fifi Wei MD [Partnered Physician] - 05/07/19 12:20 pm
--- NOTE | 2019-04-20 06:59 | Discharge Summary ---
Date of Encounter: 04/20/19 Time of Encounter: 06:58 - Discharge Diagnosis (1) CAD (coronary artery disease) Priority: Primary Status: Acute Qualifiers: Coronary Disease-Associated Artery/Lesion type: [place] artery [place] vs. transplanted heart: [place] heart Associated angina: without angina Qualified Code(s): I25.10 - Atherosclerotic heart disease of [place] coronary artery without angina pectoris - Hospital Course Hospital course: Mr. Chavez is a 74 year old type II diabetic, hypertensive man with known known atrial fibrillation, congestive heart failure, hypercholesterolemia, cerebrovascular disease, and peripheral arterial disease. The patient has had lower extremity edema and erythema with wounds for 1-2 months. He has been treated with oral antibiotics on an outpatient basis 3 separate times without resolution. He was admitted to [facility] on 03/04/2019 for inpatient therapy of his persistently draining lower extremity wounds. He has leg pain, particularly near the open wounds; however, denies any chills or fever. A wound culture revealed a polymicrobial infection including Enterobacter cloacae, Enterococcus faecalis, Serratia marcescens, and Streptococcus dysgalactiae. He is currently on intravenous antibiotics with some improvement in his lower extremity edema and swelling. During this hospitalization, he experienced a 21 beat run of nonsustained ventricular tachycardia. Cardiology was consulted. The patient underwent a transthoracic echocardiogram which revealed an LVEF 45%. Subsequent cardiac catheterization performed today revealed severe 3 vessel CAD and it LVEF 60%. In particular, the patient has a 40% mid left main lesion, a completely occluded proximal LAD which fills distally via left to left collaterals, a 50% ramus intermediate branch lesion, a 50% proximal LCx lesion, and a completely occluded proximal RCA which fills distally via left to right collaterals. He has been recommended for CABG after his lower extremity cellulitis had resolved. The patient was treated in the [facility] for approximately one month before his cellulitis and open wounds had healed. During that time he had no complaints of substernal chest pain or shortness of breath. The patient underwent CABG1 on 04/12/2019. Initially, plans had been made to perform a multivessel bypass, modified Maze procedure, and left atrial appendage stapling. At the time of operation however, the patient had calcific per icarditis which precluded the modified Maze procedure due to the pulmonary veins being inaccessible. The patient had extensive epicardial scarring from his pericarditis and no coronary arteries other than the LAD could be identified. Postoperatively the patient was in normal sinus rhythm for 3 days, but converted to his preoperative atrial fibrillation state. He was restarted on his anticoagulants and rate/rhythm control medications. The patient had a slow recovery due to his weakened preoperative physical state, but had slow improvement during his hospital stay. It was recommended that he consider inpatient rehabilitation as a bridge to home; however, he refused. He was discharged home on POD #8 with home healthcare. - Time Spent with Patient Total time spent providing and/or coordinating discharge services: - Discharge Medications Prescriptions: New Oxycodone HCl/Acetaminophen [Endocet 2.5-325 mg Tablet] 1 each PO Q6HR 7 Days #28 tablet Tamsulosin [Flomax] 0.4 mg PO DAILY #30 capsule Continued Lovastatin [Mevacor] 20 mg PO BID Glimepiride [Amaryl] 4 mg PO DAILY Cilostazol [Pletal] 100 mg PO BID Cholecalciferol (Vitamin D3) [Vitamin D3] 1,000 unit PO DAILY Aspirin [Lo-Dose Aspirin EC] 81 mg PO DAILY Dabigatran [Pradaxa] 150 mg PO BID #60 capsule Metoprolol XL (24 HR) Succ [Toprol Xl] 12.5 mg PO DAILY #30 tab.er.24h Lisinopril [Zestril] 5 mg PO DAILY Furosemide [Lasix] 20 mg PO DAILY Home Medications: Aspirin [Lo-Dose Aspirin EC] 81 mg PO DAILY 11/21/18 [History] Cholecalciferol (Vitamin D3) [Vitamin D3] 1,000 unit PO DAILY 11/21/18 [History] Cilostazol [Pletal] 100 mg PO BID 11/21/18 [History] Glimepiride [Amaryl] 4 mg PO DAILY 11/21/18 [History] Lovastatin [Mevacor] 20 mg PO BID 11/21/18 [History] Dabigatran [Pradaxa] 150 mg PO BID #60 capsule 11/25/18 [Rx] Metoprolol XL (24 HR) Succ [Toprol Xl] 12.5 mg PO DAILY #30 tab.er.24h 11/25/18 [Rx] Furosemide [Lasix] 20 mg PO DAILY 03/04/19 [History] Lisinopril [Zestril] 5 mg PO DAILY 03/04/19 [History] Oxycodone HCl/Acetaminophen [Endocet 2.5-325 mg Tablet] 1 each PO Q6HR 7 Days #28 tablet 04/20/19 [Rx] Tamsulosin [Flomax] 0.4 mg PO DAILY #30 capsule 04/20/19 [Rx] Allergies/Adverse Reactions: Allergy/AdvReac Type Severity Reaction Status Date / Time metformin Allergy Rash Verified 04/12/19 07:11 ITCHING Date of admission: 04/12/19 11:12 Primary care physician: Lois Mast Consults: 04/12/19 12:34 Consult to Cardiac Rehabilitation-Phase1 [CONS] Routine Comment: Reason for Consult: Post open heart Call Completed: Yes 04/13/19 14:21 Consult for Pharmacy Education [CONS] Routine Reason for Consult: Post-Op Heart Call Completed: Yes Consult to Occupational Therapy [CONS] Routine Comment: Evaluate, develop and implement POC Reason for Consult: Post-Op Heart Does patient have active BEDREST order?: No Is patient medically & hemodynamically stable?: Yes Consult to Physical Therapy [CONS] Routine Comment: Evaluate, develop and implement POC Reason for Consult: Post open heart Does patient have active BEDREST order?: No Is patient medically & hemodynamically stable?: Yes Patient assessed for mobility or mobilized this visit?: Yes 04/16/19 10:16 Consult to Wound Care [CONS] Routine Reason for Consult: wounds to bilateral lower legs Time Notified: 14:45 Call Completed: Yes Procedure(s) Performed: 1. CABG 1 (WILSON to LAD) performed 04/12/2019. 2. Endoscopic vein harvesting, greater saphenous vein from right lower extremity performed 04/12/2019. 3. Endoscopic vein harvesting, greater saphenous vein from left lower extremity performed 04/12/2019. Discharging clinician: Fifi Wei Anticipated date of discharge: 04/20/19 Physical Examination Vital Signs, Last 4 Hours Temp Pulse Resp BP Pulse Ox 04/20/19 04:13 16 94 04/20/19 04:09 98.9 F 110 18 127/84 93 General: Conversant, No Apparent Distress HEENT: Atraumatic, Normocephaly, Trachea midline Neck: No JVD, Normal carotid pulses Cardiac: Normal S1 and S2, No Murmur, Other (Irregular rate and rhythm (atrial fibrillation)) Lungs: Normal Breath Sounds, No Wheeze, Rales, Rhonchi Neuro: Alert and responsive, No focal deficits noted Vascular: Normal capillary refill Abdomen: Soft, Non-tender Skin: No rashes noted on visualized skin Extremities: No Clubbing, No Cyanosis, No Edema - Patient Status Disposition: Home Health Service Condition: Fair Functional capacity at discharge: independent ambulation Overall status at discharge: patient is progressing back to baseline - Discharge Instructions Follow Up With: Lois Mast MD [Primary Care Provider] - Fifi Wei MD [Partnered Physician] - 05/07/19 12:20 pm Craig Cooper MD [Non-Partnered Physician] - 05/13/19 1:30 pm - Diet and Activity Activity: sternal precautions, no driving for four weeks, no lifting greater than 10 pounds for eight weeks Diet: diabetic diet, low fat, low cholesterol Open Heart Registry Aspirin Cont/Prescribed at DC: Yes Beta [place] Cont/Prescribed at DC: Yes Statin Cont/Prescribed at DC: Yes EUGENIA/ARB Cont/Prescribed at DC: Yes - VTE Reasons for not Prescribing Prophylaxis: Medical contraindication Documentation of Mechanical Device: Graduated compression elastic hosiery
--- NOTE | 2019-04-20 07:11 | Physician Discharge Referral ---
Home Health/Hosp Referral Info Transfer to: Home Health Attending Provider: Branden Wei MD Provider in Charge Post Discharge: PCP - Diagnosis (1) CAD (coronary artery disease) Priority: Primary Status: Acute - Respiratory Orders Smoking Cessation: Smoking cessation has been advised. For more information, call the [place] Tobacco Quit Line at 1-610-MCYA-NOW. - Diet/Nutrition Diet/Nutrition Orders: Cardiac - Activity Activity Orders: Up ad clark, Ambulate - Services Needed Following services are medically necessary services: Home Health Aide, Physical Therapy, Occupational Therapy - Transfer Medications Prescriptions: Oxycodone HCl/Acetaminophen [Endocet 2.5-325 mg Tablet] 1 each PO Q6HR 7 Days #28 tablet Tamsulosin [Flomax] 0.4 mg PO DAILY #30 capsule Home Medications: Aspirin [Lo-Dose Aspirin EC] 81 mg PO DAILY 11/21/18 [History] Cholecalciferol (Vitamin D3) [Vitamin D3] 1,000 unit PO DAILY 11/21/18 [History] Cilostazol [Pletal] 100 mg PO BID 11/21/18 [History] Glimepiride [Amaryl] 4 mg PO DAILY 11/21/18 [History] Lovastatin [Mevacor] 20 mg PO BID 11/21/18 [History] Dabigatran [Pradaxa] 150 mg PO BID #60 capsule 11/25/18 [Rx] Metoprolol XL (24 HR) Succ [Toprol Xl] 12.5 mg PO DAILY #30 tab.er.24h 11/25/18 [Rx] Furosemide [Lasix] 20 mg PO DAILY 03/04/19 [History] Lisinopril [Zestril] 5 mg PO DAILY 03/04/19 [History] Oxycodone HCl/Acetaminophen [Endocet 2.5-325 mg Tablet] 1 each PO Q6HR 7 Days #28 tablet 04/20/19 [Rx] Tamsulosin [Flomax] 0.4 mg PO DAILY #30 capsule 04/20/19 [Rx] Allergies/Adverse Reactions: Allergy/AdvReac Type Severity Reaction Status Date / Time metformin Allergy Rash Verified 04/12/19 07:11 ITCHING Certification: Further, I certify that my clinical findings support that this patient is homebound (i.e. absences from home require considerable and taxing effort and are for medical reasons or yazidism services or infrequently or short duration when for other reasons) because: Homebound Reason: Patient requires assistance of a person or device to safely leave home, Leaving home requires considerable and taxing effort due to condition Attestation: My signature below is to certify that this patient is under my care and that I, or nurse practitioner, or a physician's medical office receptionist assistant working with me, has a [id number] encounter with this patient.
[2019-04-20 07:33] VITALS: BP 132/76
[2019-04-20] MEDS: Chlorhexidine Rinse 15 ML MOUTHWASH MM SCH (08:03)
[2019-04-20] MEDS: Aspirin Enteric Coated 81 MG Tablet PO SCH (08:03)
[2019-04-20] MEDS: Famotidine 20 MG TABLET PO SCH (08:05)
[2019-04-20] MEDS: *HR* Dabigatran 150 MG CAPSULE PO SCH (08:06)
[2019-04-20] MEDS: *HR* OxyCODONE/APAP 5/325 TABLET PO PRN (08:06)
[2019-04-20] MEDS: Insulin LISPRO 300 UNITS/3 ML VIAL SQ SCH (08:08)
[2019-04-20] MEDS ORDERED: *HR* Amiodarone 200 MG TABLET PO SCH (09:00)
--- NOTE | 2019-04-21 13:31 | Electrocardiograph Report ---
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
== END 2019-04-20 10:03 | disposition home health service (06) | DRG 236 ==
LOC: SAMDAY 06:05 → ICNU 11:12 → 2NNU 04-15 20:02
PROVIDERS: ADMIT Thoracic Surgery (Cardiothoracic Vascular Surgery); ATTEND Thoracic Surgery (Cardiothoracic Vascular Surgery)